=== PATIENT | female | born 1955 | race Caucasian/White ===

== ENCOUNTER 2017-09-25 15:29 | Inpatient (IN) | payer OTHER ==
[2017-09-25] MEDS ORDERED: ceFAZolin IN SWFI 2 GM/20 ML SYRINGE IVP ONE (16:01)
[2017-09-25] MEDS ORDERED: MORPHINE SULFATE 4 MG/ML SYRINGE IVP STA (16:01)
--- NOTE | 2017-09-25 16:12 | ED ---
General Adult HPI - General Source: patient, EMS, RN notes reviewed Mode of arrival: EMS Limitations: no limitations <Candy Clark - Last Filed: 09/25/17 18:15> <Obed Viramontes - Last Filed: 09/25/17 18:57> - General Chief complaint: Fall Stated complaint: Fall Time Seen by Provider: 09/25/17 15:41 - History of Present Illness Initial comments: 62 yo female presents to the emergency department with a chief complaint of a trip and fall. Patient tripped over her pajaias last night in the middle the night around 3:00 AM. She states she did not hit her head she did not pass out. It was a simple slip and fall. Patient states the right ankle hurts with no other injury. Patient denies any hip pain. Patient denies any history of hip injury in the past.Patient denies any recent fever, chills, shortness of breath, chest pain, back pain, abdominal pain, nausea vomiting, numbness or tingling, dysuria or hematuria, constipation or diarrhea, headaches or visual changes, or any other current symptoms. (Candy Clark) - Related Data Home Medications Medication Instructions Recorded Confirmed Atenolol/Chlorthalidone [Tenoretic 1 tab PO DAILY 09/25/17 09/25/17 100 Tablet] amLODIPine BESYLATE/BENAZEPRIL 1 cap PO DAILY 09/25/17 09/25/17 [Lotrel 10-20 mg Capsule] hydrOXYzine PAMOATE [Vistaril] 25 mg PO TID PRN 09/25/17 09/25/17 Allergies Allergy/AdvReac Type Severity Reaction Status Date / Time No Known Allergies Allergy Verified 09/25/17 16:20 Review of Systems ROS Other: All systems not noted in ROS Statement are negative. <Candy Clark - Last Filed: 09/25/17 18:15> ROS Other: All systems not noted in ROS Statement are negative. <Obed Viramontes - Last Filed: 09/25/17 18:57> ROS Statement: Those systems with pertinent positive or pertinent negative responses have been documented in the HPI. Past Medical History Past Medical History: Hypertension History of Any Multi-Drug Resistant Organisms: None Reported Past Surgical History: No Surgical Hx Reported Past Psychological History: Anxiety Smoking Status: Never smoker Past Alcohol Use History: Heavy Past Drug Use History: None Reported <Candy Clark - Last Filed: 09/25/17 18:15> General Exam Limitations: no limitations <Candy Clark - Last Filed: 09/25/17 18:15> <Obed Viramontes - Last Filed: 09/25/17 18:57> - General Exam Comments Initial Comments: General: The patient is awake and alert, in no distress, and does not appear acutely ill. Neck: The neck is supple, there is no tenderness. Cardiovascular: There is a regular rate and rhythm. No murmur, rub or gallop is appreciated. Respiratory: Lungs are clear to auscultation, respirations are non-labored, breath sounds are equal. No wheezes, stridor, rales, or rhonchi. Musculoskeletal: Sensation intact with 2+ pulses.reduction. Patient does appear of ecchymosis with a small abrasion to the right ankle. Limited range of motion due to pain. No proximal tib-fib tenderness. No right hip tenderness. Neurological: CN II-XII intact, There are no obvious motor or sensory deficits. Coordination appears grossly intact. Speech is normal. Skin: Skin is warm and dry and no rashes or lesions are noted. Psychiatric: Normal mood and affect. (Candy Clark) Course <Candy Clark - Last Filed: 09/25/17 18:15> <Obed Viramontes - Last Filed: 09/25/17 18:57> Vital Signs 09/25/17 09/25/17 09/25/17 15:46 16:08 16:50 Temperature 97.2 F L 97.8 F Pulse Rate 74 71 Respiratory 18 18 Rate Blood Pressure 112/51 108/56 O2 Sat by Pulse 99 99 Oximetry 09/25/17 09/25/17 09/25/17 16:55 17:00 17:10 Temperature Pulse Rate 71 69 52 L Respiratory 16 17 17 Rate Blood Pressure 110/57 108/56 79/48 O2 Sat by Pulse 100 97 96 Oximetry 09/25/17 09/25/17 09/25/17 17:16 17:20 17:26 Temperature Pulse Rate 86 66 75 Respiratory 17 17 17 Rate Blood Pressure 83/51 88/55 95/50 O2 Sat by Pulse 97 97 98 Oximetry 09/25/17 09/25/17 17:36 17:54 Temperature Pulse Rate 69 67 Respiratory 17 17 Rate Blood Pressure 91/50 91/59 O2 Sat by Pulse 98 Oximetry - Reevaluation(s) Reevaluation #1: 09/25/17 18:19 At time of admission we are still pending the patient's CAT scan results as well as urinalysis. (Candy Clark) Reevaluation #2: 09/25/17 18:57 I did discuss the case with Dr. Luz. The patient will be admitted with ICU consultation. Patient does remain awake alert hemodynamically stable at this time. (Obed Viramontes) Procedures - Orthopedic Joint Reduction Joint #1 Consent Obtained: verbal consent Time Out Performed: Yes Side: right Joint Reduction Location: ankle Analgesia: procedural sedation Technique Used: direct manipulation Post-Reduction Neuro Exam: intact Post-Reduction Vascular Exam: intact Post Reduction X-Ray Obtained: Yes Post Reduction X-Ray Results: reduced Splint Applied: Yes (Short leg stirrup medial and lateral aspects) Patient Tolerated Procedure: well - Procedural Sedation Procedural Sedation Start Time: 16:55 Procedural Sedation Stop Time: 17:18 Indications: fracture/dislocation reduction ASA Class: II Mallampati Airway Score: 3 IV Propofol Dose (mgs): 120 Complications: hypoventilation Interventions: oxygen applied, airway repositioned Patient Tolerated Procedure: well <Obed Viramontes - Last Filed: 09/25/17 18:57> Medical Decision Making - Lab Data Result diagrams: 09/25/17 16:30 09/25/17 16:30 <Candy Clark - Last Filed: 09/25/17 18:15> - Lab Data Result diagrams: 09/25/17 16:30 09/25/17 16:30 <Obed Viramontes - Last Filed: 09/25/17 18:57> - Medical Decision Making 62-year-old female presents with what appears be a right ankle injury. Patient did have a dislocation and fracture to the right ankle. There was concern for possible open fracture patient was given. Dr. Ruiz didn't come to evaluate the patient he states he does not open fracture and placed in a splint onto the patient is awake. Lab work revealed hyponatremia hypokalemia hypomagnesemia a as well as the patient and her abdomen which is not surprising due to the fact family confirms that she fell around 3:00 the morning and has been on the ground since they went to get her. At this time we will be admitting the patient we will start her on Ativan protocol for alcohol withdrawal. We will also start hydration for the patient's her abdomen place her magnesium and potassium. The patient is in agreement with this plan. This time she will be admitted. (Candy Clark) - Lab Data Lab Results 09/25/17 09/25/17 09/25/17 Range/Units 16:30 16:30 16:30 WBC 13.1 H (3.8-10.6) k/uL RBC 4.25 (3.80-5.40) m/uL Hgb 13.6 (11.4-16.0) gm/dL Hct 38.2 (34.0-46.0) % MCV 89.8 (80.0-100.0) fL MCH 32.0 (25.0-35.0) pg MCHC 35.7 (31.0-37.0) g/dL RDW 12.3 (11.5-15.5) % Plt Count 290 (150-450) k/uL Neutrophils % 94 % Lymphocytes % 2 % Monocytes % 3 % Eosinophils % 0 % Basophils % 0 % Neutrophils # 12.3 H (1.3-7.7) k/uL Lymphocytes # 0.3 L (1.0-4.8) k/uL Monocytes # 0.4 (0-1.0) k/uL Eosinophils # 0.1 (0-0.7) k/uL Basophils # 0.0 (0-0.2) k/uL Manual Slide Review Performed Hyperchromasia Slight Anisocytosis (manual) Present PT 10.6 (9.0-12.0) sec INR 1.1 (<1.2) APTT 27.1 (22.0-30.0) sec Sodium 107 L* (137-145) mmol/L Potassium 2.9 L* (3.5-5.1) mmol/L Chloride 66 L* (98-107) mmol/L Carbon Dioxide 21 L (22-30) mmol/L Anion Gap 20 mmol/L BUN 6 L (7-17) mg/dL Creatinine 0.70 (0.52-1.04) mg/dL Est GFR (MDRD) Af Amer >60 (>60 ml/min/1.73 sqM) Est GFR (MDRD) Non-Af >60 (>60 ml/min/1.73 sqM) Glucose 96 (74-99) mg/dL Calcium 8.6 (8.4-10.2) mg/dL Phosphorus 2.3 L (2.5-4.5) mg/dL Magnesium 1.2 L (1.6-2.3) mg/dL Total Bilirubin 1.3 (0.2-1.3) mg/dL AST 227 H (14-36) U/L ALT 82 H (9-52) U/L Alkaline Phosphatase 93 (38-126) U/L Creatine Kinase (30-135) U/L Total Protein 6.2 L (6.3-8.2) g/dL Albumin 3.6 (3.5-5.0) g/dL 09/25/17 Range/Units 16:30 WBC (3.8-10.6) k/uL RBC (3.80-5.40) m/uL Hgb (11.4-16.0) gm/dL Hct (34.0-46.0) % MCV (80.0-100.0) fL MCH (25.0-35.0) pg MCHC (31.0-37.0) g/dL RDW (11.5-15.5) % Plt Count (150-450) k/uL Neutrophils % % Lymphocytes % % Monocytes % % Eosinophils % % Basophils % % Neutrophils # (1.3-7.7) k/uL Lymphocytes # (1.0-4.8) k/uL Monocytes # (0-1.0) k/uL Eosinophils # (0-0.7) k/uL Basophils # (0-0.2) k/uL Manual Slide Review Hyperchromasia Anisocytosis (manual) PT (9.0-12.0) sec INR (<1.2) APTT (22.0-30.0) sec Sodium (137-145) mmol/L Potassium (3.5-5.1) mmol/L Chloride (98-107) mmol/L Carbon Dioxide (22-30) mmol/L Anion Gap mmol/L BUN (7-17) mg/dL Creatinine (0.52-1.04) mg/dL Est GFR (MDRD) Af Amer (>60 ml/min/1.73 sqM) Est GFR (MDRD) Non-Af (>60 ml/min/1.73 sqM) Glucose (74-99) mg/dL Calcium (8.4-10.2) mg/dL Phosphorus (2.5-4.5) mg/dL Magnesium (1.6-2.3) mg/dL Total Bilirubin (0.2-1.3) mg/dL AST (14-36) U/L ALT (9-52) U/L Alkaline Phosphatase (38-126) U/L Creatine Kinase 5772 H (30-135) U/L Total Protein (6.3-8.2) g/dL Albumin (3.5-5.0) g/dL Disposition Decision Date: 09/25/17 Decision Time: 18:18 <Candy Clark - Last Filed: 09/25/17 18:15> <Obed Viramontes - Last Filed: 09/25/17 18:57> Clinical Impression: Fall, Hypokalemia, Hypomagnesemia, Hyponatremia, Alcoholism, Rhabdomyolysis, Closed right ankle fracture Disposition: ADMITTED IP TO THIS [facility] Condition: Fair
--- NOTE | 2017-09-25 16:20 | XR ---
EXAMINATION TYPE: XR ankle complete RT DATE OF EXAM: 09/25/2017 COMPARISON: NONE HISTORY: Pain TECHNIQUE: Frontal, lateral and oblique images of the right ankle are obtained. COMPARISON: None. FINDINGS: Complete dislocation tibiotalar joint. Tibia is dislocated medially. Completely displaced d istal fibular fracture with mild comminution. Fracture components adjacent to the distal tibia. Suspe ct that additional posterior malleolar fracture. Extensive soft tissue swelling and deformity. IMPRESSION: Fracture / dislocation right ankle.
[2017-09-25] MEDS ORDERED: PROPOFOL 10 MG/ML 20 ML VIAL IV STA (16:26)
[2017-09-25 16:51] LABS: ALT 82 U/L (9-52); AST 227 U/L (14-36); Albumin 3.6 g/dL (3.5-5.0); Alkaline Phosphatase 93 U/L (38-126); Anion Gap 20 mmol/L; Blood Urea Nitrogen 6 mg/dL (7-17); Calcium 8.6 mg/dL (8.4-10.2); Carbon Dioxide 21 mmol/L (22-30); Glucose 96 mg/dL (74-99); Magnesium 1.2 mg/dL (1.6-2.3); Phosphorus 2.3 mg/dL (2.5-4.5); Total Bilirubin 1.3 mg/dL (0.2-1.3); Total Protein 6.2 g/dL (6.3-8.2)
[2017-09-25 16:57] LABS: Basophils % (A) 0 %; Eosinophils # (A) 0.1 k/uL (0-0.7); Eosinophils % (A) 0 %; HCT 38.2 % (34.0-46.0); HGB 13.6 gm/dL (11.4-16.0); Hyperchromasia Slight; Lymphocytes # (A) 0.3 k/uL (1.0-4.8); Lymphocytes % (A) 2 %; MCHC 35.7 g/dL (31.0-37.0); MCV 89.8 fL (80.0-100.0); Mean Platelet Volume 7.3; Monocytes # (A) 0.4 k/uL (0-1.0); Monocytes % (A) 3 %; Neutrophils # (A) 12.3 k/uL (1.3-7.7); Neutrophils % (A) 94 %; Platelet Count 290 k/uL (150-450); RBC 4.25 m/uL (3.80-5.40); RDW 12.3 % (11.5-15.5); WBC 13.1 k/uL (3.8-10.6)
[2017-09-25 17:04] LABS: Sodium 107 mmol/L (137-145)
[2017-09-25 17:05] LABS: Chloride 66 mmol/L (98-107); Potassium 2.9 mmol/L (3.5-5.1)
[2017-09-25 17:09] LABS: INR 1.1 (<1.2); Partial Thromboplastin Time 27.1 sec (22.0-30.0); Prothrombin Time 10.6 sec (9.0-12.0)
[2017-09-25] MEDS ORDERED: SODIUM CHLORIDE 0.9% 1,000 ML IV STA ×2 (17:14→17:17)
[2017-09-25 17:16] LABS: Anisocytosis (M) Present
[2017-09-25] MEDS ORDERED: POTASSIUM CHLORIDE 20 MEQ in WATER FOR INJECTION 1 100ML.BAG IVPB STA (17:17)
--- NOTE | 2017-09-25 17:22 | XR ---
EXAMINATION TYPE: XR ankle limited RT DATE OF EXAM: 09/25/2017 COMPARISON: Today HISTORY: Postreduction TECHNIQUE: 2 views FINDINGS: There is comminuted oblique fracture of the distal shaft of the fibula. There is a large pl cristofer calcaneal spur. There is 50% offset. There is some widening of the ankle mortise. There is sign ificant reduction of the fracture dislocation compared to first exam. IMPRESSION: There is satisfactory reduction of the fracture dislocation of the ankle joint compared t o the first exam.
[2017-09-25] MEDS: MAGNESIUM SULFATE-D5W PMX 1 GM in DEXTROSE/WATER 1 100ML.BAG IVPB SCH ×2 (17:59→22:22)
[2017-09-25] MEDS ORDERED: NALOXONE 0.4 MG/ML 1 ML VIAL IV PRN (18:19)
[2017-09-25] MEDS ORDERED: THIAMINE 100 MG/ML 2 ML VIAL IM STA (18:21)
[2017-09-25] MEDS ORDERED: hydrOXYzine PAMOATE 25 MG CAP PO PRN (18:21)
[2017-09-25] MEDS ORDERED: LORazepam 2 MG/ML INJ IV PRN ×3 (18:21)
--- NOTE | 2017-09-25 19:13 | CT ---
EXAMINATION TYPE: CT brain [place] DATE OF EXAM: 09/25/2017 COMPARISON: NONE HISTORY: Fall today. No head injury. CT DLP: 2470 mGycm Automated exposure control for dose reduction was used. TECHNIQUE: CT scan of the head and cervical spine are performed without contrast. FINDINGS: There is mild cerebral cortical atrophy. There is no mass effect nor midline shift. There is no sign of intracranial hemorrhage. The calvarium appears intact. There is some mild straightening of the cervical spine. There is degenerative disc space narrowing at C5-6 C6-7 with spurring of the endplates. Posterior elements are intact. There is no sign of a fract ure. Skull base appears intact. IMPRESSION: Cerebral atrophy. No acute intracranial abnormality. Spondylotic changes in the lower cervical spine. No fracture seen.
[2017-09-25 19:36] LABS: Appearance,Urine Cloudy (Clear); Bacteria,Urine Occasional /hpf; Bilirubin,Urine Negative (Negative); Blood,Urine Moderate (Negative); Color,Urine Yellow; Glucose,Urine (UA) Negative (Negative); Hyaline Casts,Urine 1 /lpf (0-2); Ketones,Urine 2+ (Negative); Leukocyte Esterase,Urine Large (Negative); Mucus,Urine Rare /hpf; Nitrite,Urine Positive (Negative); Protein,Urine 1+ (Negative); RBC,Urine 9 /hpf (0-5); Specific Gravity,Urine 1.007 (1.001-1.035); Squamous Epithelial Cell,Urine 1 /hpf (0-4); Urobilinogen,Urine <2.0 mg/dL (<2.0); WBC,Urine 70 /hpf (0-5)
[2017-09-25 19:41] LABS: Amphetamine Screen,Urine Not Detected (NotDetected); Barbiturate Screen,Urine Not Detected (NotDetected); Benzodiazepines Screen,Urine Not Detected (NotDetected); Cocaine Screen,Urine Not Detected (NotDetected); Methadone Screen, Urine Not Detected (NotDetected); Opiate Screen,Urine Detected (NotDetected); Oxycodone Screen, Urine Not Detected (NotDetected); Phencyclidine Screen,Urine Not Detected (NotDetected); Tricyclic Antidepressant,Urine Not Detected (NotDetected); Urn Cannabinoid Scrn Not Detected (NotDetected)
[2017-09-25] MEDS: SODIUM CHLORIDE 0.9% 1,000 ML IV SCH (21:00)
[2017-09-26 00:39] LABS: Anion Gap 15 mmol/L; Calcium 8.5 mg/dL (8.4-10.2); Carbon Dioxide 20 mmol/L (22-30); Glucose 105 mg/dL (74-99)
[2017-09-26 00:40] LABS: Sodium 109 mmol/L (137-145)
[2017-09-26 00:41] LABS: Albumin 3.1 g/dL (3.5-5.0); Blood Urea Nitrogen 6 mg/dL (7-17); Chloride 74 mmol/L (98-107); Potassium 4.8 mmol/L (3.5-5.1); Total Protein 5.9 g/dL (6.3-8.2)
[2017-09-26 00:42] LABS: ALT 67 U/L (9-52); AST 184 U/L (14-36); Alkaline Phosphatase 71 U/L (38-126); Magnesium 1.8 mg/dL (1.6-2.3); Total Bilirubin 1.4 mg/dL (0.2-1.3)
[2017-09-26 01:33] LABS: Glucose,Whole Blood 107 mg/dL (75-99)
[2017-09-26] MEDS: ceFAZolin IN SWFI 2 GM/20 ML SYRINGE IVP SCH ×2 (03:37→08:38)
[2017-09-26] MEDS: SODIUM CHLORIDE 0.9% 1,000 ML IV SCH ×6 (03:37→22:53)
[2017-09-26 04:52] LABS: Anion Gap 17 mmol/L; Calcium 8.6 mg/dL (8.4-10.2); Carbon Dioxide 21 mmol/L (22-30); Glucose 88 mg/dL (74-99); Total Bilirubin 1.1 mg/dL (0.2-1.3)
[2017-09-26 04:55] LABS: Chloride 75 mmol/L (98-107); Sodium 113 mmol/L (137-145)
[2017-09-26 04:56] LABS: HCT 36.1 % (34.0-46.0); HGB 12.2 gm/dL (11.4-16.0); MCH 31.4 pg (25.0-35.0); MCHC 33.9 g/dL (31.0-37.0); MCV 92.7 fL (80.0-100.0); Mean Platelet Volume 7.6; Platelet Count 258 k/uL (150-450); RBC 3.89 m/uL (3.80-5.40); RDW 12.2 % (11.5-15.5); WBC 10.7 k/uL (3.8-10.6)
[2017-09-26 04:58] LABS: Albumin 2.9 g/dL (3.5-5.0); Blood Urea Nitrogen 5 mg/dL (7-17); Magnesium 1.7 mg/dL (1.6-2.3); Potassium 4.4 mmol/L (3.5-5.1); Total Protein 5.6 g/dL (6.3-8.2)
[2017-09-26 04:59] LABS: ALT 65 U/L (9-52); AST 163 U/L (14-36); Alkaline Phosphatase 68 U/L (38-126)
[2017-09-26 05:30] LABS: Band Neutrophils % 3 %; Lymphocytes # (M) 0.54 k/uL (1.0-4.8); Monocytes # (M) 0.21 k/uL (0-1.0); Neutrophils % (M) 90 %; Nucleated Red Blood Cells 0 /100 WBC (0-0); Total Cells Counted 100
[2017-09-26] MEDS: MAGNESIUM SULFATE-D5W PMX 1 GM in DEXTROSE/WATER 1 100ML.BAG IVPB SCH ×6 (08:30→23:59)
[2017-09-26] MEDS ORDERED: amLODIPine 10 MG TAB PO SCH (09:00)
[2017-09-26] MEDS ORDERED: CHLORTHALIDONE 25 MG TAB PO SCH (09:00)
[2017-09-26] MEDS ORDERED: LISINOPRIL 20 MG TAB PO SCH (09:00)
[2017-09-26] MEDS ORDERED: PANTOPRAZOLE 40 MG TABLET PO SCH (09:00)
[2017-09-26] MEDS ORDERED: ATENOLOL 50 MG TAB PO SCH (09:00)
[2017-09-26] MEDS: ENOXAPARIN 40 MG/0.4 ML SYRINGE SQ SCH (10:01)
--- NOTE | 2017-09-26 10:13 | P.CNPUL ---
History of Present Illness Consult date: 09/26/17 Reason for consult: other Chief complaint: Status post fall with broken ankle in rhabdomyolysis History of present illness: Consult dated September 26 2017 62-year-old female who presented to the emergency department with complaints of tripping and falling. She apparently fell over a predominance the night before. The patient apparently was on the floor for maybe 10-12 hours. She ended up fracturing her right ankle. Heavy drinker. Drinks about 5- 8 beers a day. The patient denies any complaints at the current time. She was mildly hypotensive in the emergency department. For that reason and for all the medical issues that she had an evaluation including profound hyponatremia with sodium of 107, the patient was admitted to the ICU for further monitoring and management. The patient sees Dr. Mcdonald as a primary doctor. She is doing better today. Her kidney functions remained normal. We are monitoring her creatine kinase levels. Currently, the patient's on nasal O2 at 2 L/m and a saline IV at 150 an hour. Her sodium will be rechecked. Her last sodium was 113 at about 4 AM. Review of Systems A 12 point review of system is performed. Constitutional weakness neurologic negative HEENT negative cardiovascular negative pulmonary negative GI negative negative neurologic pain in the right ankle area. Immunologic negative dermatologic negative Past Medical History Past Medical History: Hypertension History of Any Multi-Drug Resistant Organisms: None Reported Past Surgical History: No Surgical Hx Reported Past Psychological History: Anxiety Smoking Status: Never smoker Past Alcohol Use History: Heavy Past Drug Use History: None Reported - Past Family History Father Family Medical History: Hypertension Additional Family Medical History / Comment(s): gout, etoh, Medications and Allergies Home Medications Medication Instructions Recorded Confirmed Type Atenolol/Chlorthalidone [Tenoretic 1 tab PO DAILY 09/25/17 09/25/17 History 100 Tablet] amLODIPine BESYLATE/BENAZEPRIL 1 cap PO DAILY 09/25/17 09/25/17 History [Lotrel 10-20 mg Capsule] hydrOXYzine PAMOATE [Vistaril] 25 mg PO TID PRN 09/25/17 09/25/17 History Allergies Allergy/AdvReac Type Severity Reaction Status Date / Time No Known Allergies Allergy Verified 09/25/17 16:20 Physical Exam Osteopathic Statement: *. No significant issues noted on an osteopathic structural exam other than those noted in the History and Physical/Consult. Vitals: Vital Signs Temp Pulse Pulse Resp BP BP Pulse Ox 09/26/17 09:30 75 42 H 83/36 97 09/26/17 09:00 69 25 H 98/53 98 09/26/17 08:30 70 31 H 99/67 97 09/26/17 08:00 98.0 F 78 27 H 95/58 98 09/26/17 07:30 71 22 91/51 98 09/26/17 07:00 70 16 97/55 97 09/26/17 06:50 66 20 97/55 97 09/26/17 06:40 76 20 97/55 98 09/26/17 06:30 63 20 96/51 97 09/26/17 06:20 64 16 96/51 97 09/26/17 06:10 64 24 96/51 98 09/26/17 06:00 69 33 H 96/50 97 09/26/17 05:50 63 16 96/50 96 09/26/17 05:40 65 23 96/50 98 09/26/17 05:30 71 16 92/51 98 09/26/17 05:20 81 20 92/51 96 09/26/17 05:10 70 21 92/51 99 09/26/17 05:00 69 24 95/50 95 09/26/17 04:50 68 24 95/50 98 09/26/17 04:40 71 16 95/50 97 09/26/17 04:30 62 30 H 95/57 99 09/26/17 04:20 63 15 95/57 98 09/26/17 04:10 69 16 95/57 98 09/26/17 04:00 98.2 F 67 15 97/60 97 09/26/17 03:50 69 19 97/60 98 18 03:40 71 20 97/60 98 09/26/17 03:30 69 25 H 108/51 98 18 03:20 61 16 108/51 96 18 03:10 61 16 108/51 98 18 03:00 62 20 108/51 99 18 02:50 62 25 H 108/51 98 09/26/17 02:40 62 17 108/51 97 09/26/17 02:30 72 23 108/51 98 09/26/17 02:20 68 61 H 108/51 99 09/26/17 02:10 64 22 108/51 99 09/26/17 02:00 98.7 F 65 24 108/51 100 09/26/17 01:50 74 16 108/51 97 09/26/17 01:40 66 20 108/51 99 09/26/17 01:36 97.3 F L 64 18 99/58 100 09/26/17 01:30 72 97 09/26/17 01:29 98 09/26/17 00:00 97.3 F L 67 14 99/54 98 09/25/17 22:00 66 16 104/57 99 09/25/17 21:04 16 98 09/25/17 21:00 68 16 107/58 98 09/25/17 20:58 68 20 102/57 99 09/25/17 20:32 66 18 102/57 99 09/25/17 20:21 69 18 98/55 99 09/25/17 19:17 71 18 93/52 99 09/25/17 17:54 67 17 91/59 98 09/25/17 17:36 69 17 91/50 09/25/17 17:26 75 17 95/50 98 09/25/17 17:20 66 17 88/55 97 09/25/17 17:16 86 17 83/51 97 09/25/17 17:10 52 L 17 79/48 96 09/25/17 17:00 69 17 108/56 97 09/25/17 16:55 71 16 110/57 100 09/25/17 16:50 71 18 108/56 99 09/25/17 16:08 97.8 F 09/25/17 15:46 97.2 F L 74 18 112/51 99 Intake and Output 09/25/17 09/26/17 09/26/17 22:59 06:59 14:59 Intake Total 1450 500 Output Total 2800 450 Balance -1350 50 Intake: Intake, IV Titration 1450 500 Amount Magnesium Sulfate-D5w Pmx 100 200 1 gm In Dextrose/Water 1 100ml.bag @ 100 mls/hr IVPB Q1H ROBERT Rx#: [id number] Sodium Chloride 0.9% 1, 1350 300 000 ml @ 150 mls/hr IV . Q6H40M ROBERT Rx#:[id number] Output: Urine 2800 450 Uretheral ([place]) 1000 Other: Voiding Method Indwelling Catheter Indwelling Catheter Weight 113.398 kg 114.2 kg No acute distress, oriented 3. Nasal O2 in place HEENT examination is grossly unremarkable. Mucous membranes are moist. No oral lesions. Neck supple. Full range of motion. No adenopathy thyromegaly or neck vein distention. Cardiovascular examination reveals regular rhythm rate. S1-S2 normal. No S3 or S4. No discernible murmur noted. Lungs reveal clear breath sounds. Her sounds are equal bilaterally. No adventitious lung sounds including wheezes rhonchi or crackles. Abdomen soft bowel sounds are heard. No masses or tenderness. Extremities are intact. No cyanosis clubbing or edema. The patient has right ankle pain and swelling Skin is without rash or lesion. Neurologic examination is brief but nonfocal. Results - Laboratory Findings CBC and BMP: 09/26/17 03:58 09/26/17 03:58 PT/INR, D-dimer PT 10.6 sec (9.0-12.0) 09/25/17 16:30 INR 1.1 (<1.2) 09/25/17 16:30 Abnormal lab findings: Abnormal Labs 09/25/17 09/25/17 09/25/17 16:30 16:30 16:30 WBC 13.1 H Neutrophils # 12.3 H Neutrophils # (Manual) Lymphocytes # 0.3 L Lymphocytes # (Manual) Sodium 107 L* Potassium 2.9 L* Chloride 66 L* Carbon Dioxide 21 L BUN 6 L Creatinine Glucose POC Glucose (mg/dL) Phosphorus 2.3 L Magnesium 1.2 L Total Bilirubin AST 227 H ALT 82 H Creatine Kinase 5772 H Total Protein 6.2 L Albumin Urine Appearance Urine Protein Urine Ketones Urine Blood Urine Nitrite Ur Leukocyte Esterase Urine RBC Urine WBC Urine Bacteria Urine Mucus Urine Opiates Screen 09/25/17 09/26/17 09/26/17 19:20 00:00 01:31 WBC Neutrophils # Neutrophils # (Manual) Lymphocytes # Lymphocytes # (Manual) Sodium 109 L* Potassium Chloride 74 L* Carbon Dioxide 20 L BUN 6 L Creatinine 0.50 L Glucose 105 H POC Glucose (mg/dL) 107 H Phosphorus Magnesium Total Bilirubin 1.4 H AST 184 H ALT 67 H Creatine Kinase Total Protein 5.9 L Albumin 3.1 L Urine Appearance Cloudy H Urine Protein 1+ H Urine Ketones 2+ H Urine Blood Moderate H Urine Nitrite Positive H Ur Leukocyte Esterase Large H Urine RBC 9 H Urine WBC 70 H Urine Bacteria Occasional H Urine Mucus Rare H Urine Opiates Screen Detected H 09/26/17 09/26/17 03:58 03:58 WBC 10.7 H Neutrophils # Neutrophils # (Manual) 9.90 H Lymphocytes # Lymphocytes # (Manual) 0.54 L Sodium 113 L* Potassium Chloride 75 L* Carbon Dioxide 21 L BUN 5 L Creatinine Glucose POC Glucose (mg/dL) Phosphorus Magnesium Total Bilirubin AST 163 H ALT 65 H Creatine Kinase Total Protein 5.6 L Albumin 2.9 L Urine Appearance Urine Protein Urine Ketones Urine Blood Urine Nitrite Ur Leukocyte Esterase Urine RBC Urine WBC Urine Bacteria Urine Mucus Urine Opiates Screen - Diagnostic Findings Chest x-ray: image reviewed (Labs x-rays a medications are reviewed.) Assessment and Plan Assessment: Assessment Profound hyponatremia likely secondary to chronic beer ingestion Status post fall with right ankle fracture Rule out rhabdomyolysis History of hypertension Chronic alcohol abuse Plan: Plan for September 26 2017 The patient's sodium will continue to be monitored. We'll check a sodium in the near future. Patient will continue on saline IV at 150 an hour. Additional recommendations and suggestions are forthcoming. We'll continue to monitor kidney function. We'll continue to monitor the CK level. Additional recommendations and suggestions are forthcoming. We'll also continue to monitor patient for signs and symptoms of alcohol withdrawal syndrome Time with Patient: Greater than 30
--- NOTE | 2017-09-26 11:20 | P.HPIM ---
History of Present Illness H&P Date: 09/26/17 This is a 62-year-old female with past medical history significant for heavy alcohol abuse who presented to the hospital after she had a mechanical fall and was found on the ground for approximately 10-12 hours. Patient was evaluated in the emergency room and was complaining of right ankle pain. She was right ankle dislocation status post reduction in the emergency room. Patient was also found to have significant electrolyte derangement and profound hyponatremia. Her mentation was acceptable as patient remained awake and alert and oriented despite profound hyponatremia. There was no seizure documented. Patient is being hydrated with IV fluids. She was also started on antibiotic to cover her for underlying UTI. Review of Systems Review of system: 14 points review of systems were obtained and were negative except to what were mentioned in the HPI. Past Medical History Past Medical History: Hypertension History of Any Multi-Drug Resistant Organisms: None Reported Past Surgical History: No Surgical Hx Reported Past Psychological History: Anxiety Smoking Status: Never smoker Past Alcohol Use History: Heavy Past Drug Use History: None Reported - Past Family History Father Family Medical History: Hypertension Additional Family Medical History / Comment(s): gout, etoh, Medications and Allergies Home Medications Medication Instructions Recorded Confirmed Type Atenolol/Chlorthalidone [Tenoretic 1 tab PO DAILY 09/25/17 09/25/17 History 100 Tablet] amLODIPine BESYLATE/BENAZEPRIL 1 cap PO DAILY 09/25/17 09/25/17 History [Lotrel 10-20 mg Capsule] hydrOXYzine PAMOATE [Vistaril] 25 mg PO TID PRN 09/25/17 09/25/17 History Allergies Allergy/AdvReac Type Severity Reaction Status Date / Time No Known Allergies Allergy Verified 09/25/17 16:20 Physical Exam Vitals: Vital Signs Temp Pulse Pulse Resp BP BP Pulse Ox 09/26/17 11:00 64 15 93/52 97 09/26/17 10:30 64 27 H 103/51 96 09/26/17 10:00 72 96 H 97/52 95 09/26/17 09:30 75 42 H 83/36 97 09/26/17 09:00 69 25 H 98/53 98 09/26/17 08:30 70 31 H 99/67 97 09/26/17 08:00 98.0 F 78 27 H 95/58 98 02/14/18 07:30 71 22 91/51 98 02/14/18 07:00 70 16 97/55 97 02/14/18 06:50 66 20 97/55 97 02/14/18 06:40 76 20 97/55 98 02/14/18 06:30 63 20 96/51 97 02/14/18 06:20 64 16 96/51 97 02/14/18 06:10 64 24 96/51 98 02/14/18 06:00 69 33 H 96/50 97 02/14/18 05:50 63 16 96/50 96 02/14/18 05:40 65 23 96/50 98 02/14/18 05:30 71 16 92/51 98 02/14/18 05:20 81 20 92/51 96 02/14/18 05:10 70 21 92/51 99 02/14/18 05:00 69 24 95/50 95 02/14/18 04:50 68 24 95/50 98 02/14/18 04:40 71 16 95/50 97 02/14/18 04:30 62 30 H 95/57 99 02/14/18 04:20 63 15 95/57 98 02/14/18 04:10 69 16 95/57 98 02/14/18 04:00 98.2 F 67 15 97/60 97 02/14/18 03:50 69 19 97/60 98 02/14/18 03:40 71 20 97/60 98 02/14/18 03:30 69 25 H 108/51 98 02/14/18 03:20 61 16 108/51 96 02/14/18 03:10 61 16 108/51 98 02/14/18 03:00 62 20 108/51 99 02/14/18 02:50 62 25 H 108/51 98 02/14/18 02:40 62 17 108/51 97 02/14/18 02:30 72 23 108/51 98 02/14/18 02:20 68 61 H 108/51 99 02/14/18 02:10 64 22 108/51 99 02/14/18 02:00 98.7 F 65 24 108/51 100 02/14/18 01:50 74 16 108/51 97 02/14/18 01:40 66 20 108/51 99 02/14/18 01:36 97.3 F L 64 18 99/58 100 02/14/18 01:30 72 97 09/26/17 01:29 98 09/26/17 00:00 97.3 F L 67 14 99/54 98 09/25/17 22:00 66 16 104/57 99 09/25/17 21:04 16 98 09/25/17 21:00 68 16 107/58 98 09/25/17 20:58 68 20 102/57 99 09/25/17 20:32 66 18 102/57 99 09/25/17 20:21 69 18 98/55 99 09/25/17 19:17 71 18 93/52 99 09/25/17 17:54 67 17 91/59 98 09/25/17 17:36 69 17 91/50 09/25/17 17:26 75 17 95/50 98 09/25/17 17:20 66 17 88/55 97 09/25/17 17:16 86 17 83/51 97 09/25/17 17:10 52 L 17 79/48 96 09/25/17 17:00 69 17 108/56 97 09/25/17 16:55 71 16 110/57 100 09/25/17 16:50 71 18 108/56 99 09/25/17 16:08 97.8 F 09/25/17 15:46 97.2 F L 74 18 112/51 99 Intake and Output 09/25/17 09/26/17 09/26/17 22:59 06:59 14:59 Intake Total 1450 800 Output Total 2800 800 Balance -1350 0 Intake: Intake, IV Titration 1450 800 Amount Magnesium Sulfate-D5w Pmx 100 200 1 gm In Dextrose/Water 1 100ml.bag @ 100 mls/hr IVPB Q1H [facility] Rx#: [id number] Sodium Chloride 0.9% 1, 1350 600 000 ml @ 150 mls/hr IV . Q6H40M [facility] Rx#:[id number] Output: Urine 2800 800 Uretheral (Silverman) 1000 Other: Voiding Method Indwelling Catheter Indwelling Catheter Weight 113.398 kg 114.2 kg General: The patient is awake and alert, in no distress Eye: there is normal conjunctiva bilaterally. Neck: The neck is supple, there is no JVD. Cardiovascular: Normal S1-S2, no S3-S4, no murmurs. Respiratory: Lungs clear to auscultation bilaterally Gastrointestinal: Abdomen is soft, nontender Musculoskeletal: Right ankle/foot inspected. Neurological:. Speech is normal. Skin: Skin is warm and dry Results CBC & Chem 7: 09/26/17 03:58 09/26/17 03:58 Labs: Abnormal Lab Results - Last 24 Hours (Table) 09/25/17 09/25/17 09/25/17 Range/Units 16:30 16:30 16:30 WBC 13.1 H (3.8-10.6) k/uL Neutrophils # 12.3 H (1.3-7.7) k/uL Neutrophils # (Manual) (1.3-7.7) k/uL Lymphocytes # 0.3 L (1.0-4.8) k/uL Lymphocytes # (Manual) (1.0-4.8) k/uL Sodium 107 L* (137-145) mmol/L Potassium 2.9 L* (3.5-5.1) mmol/L Chloride 66 L* (98-107) mmol/L Carbon Dioxide 21 L (22-30) mmol/L BUN 6 L (7-17) mg/dL Creatinine (0.52-1.04) mg/dL Glucose (74-99) mg/dL POC Glucose (mg/dL) (75-99) mg/dL Phosphorus 2.3 L (2.5-4.5) mg/dL Magnesium 1.2 L (1.6-2.3) mg/dL Total Bilirubin (0.2-1.3) mg/dL AST 227 H (14-36) U/L ALT 82 H (9-52) U/L Creatine Kinase 5772 H (30-135) U/L Total Protein 6.2 L (6.3-8.2) g/dL Albumin (3.5-5.0) g/dL Urine Appearance (Clear) Urine Protein (Negative) Urine Ketones (Negative) Urine Blood (Negative) Urine Nitrite (Negative) Ur Leukocyte Esterase (Negative) Urine RBC (0-5) /hpf Urine WBC (0-5) /hpf Urine Bacteria (None) /hpf Urine Mucus (None) /hpf Urine Opiates Screen (NotDetected) 09/25/17 09/26/17 09/26/17 Range/Units 19:20 00:00 01:31 WBC (3.8-10.6) k/uL Neutrophils # (1.3-7.7) k/uL Neutrophils # (Manual) (1.3-7.7) k/uL Lymphocytes # (1.0-4.8) k/uL Lymphocytes # (Manual) (1.0-4.8) k/uL Sodium 109 L* (137-145) mmol/L Potassium (3.5-5.1) mmol/L Chloride 74 L* (98-107) mmol/L Carbon Dioxide 20 L (22-30) mmol/L BUN 6 L (7-17) mg/dL Creatinine 0.50 L (0.52-1.04) mg/dL Glucose 105 H (74-99) mg/dL POC Glucose (mg/dL) 107 H (75-99) mg/dL Phosphorus (2.5-4.5) mg/dL Magnesium (1.6-2.3) mg/dL Total Bilirubin 1.4 H (0.2-1.3) mg/dL AST 184 H (14-36) U/L ALT 67 H (9-52) U/L Creatine Kinase (30-135) U/L Total Protein 5.9 L (6.3-8.2) g/dL Albumin 3.1 L (3.5-5.0) g/dL Urine Appearance Cloudy H (Clear) Urine Protein 1+ H (Negative) Urine Ketones 2+ H (Negative) Urine Blood Moderate H (Negative) Urine Nitrite Positive H (Negative) Ur Leukocyte Esterase Large H (Negative) Urine RBC 9 H (0-5) /hpf Urine WBC 70 H (0-5) /hpf Urine Bacteria Occasional H (None) /hpf Urine Mucus Rare H (None) /hpf Urine Opiates Screen Detected H (NotDetected) 09/26/17 09/26/17 Range/Units 03:58 03:58 WBC 10.7 H (3.8-10.6) k/uL Neutrophils # (1.3-7.7) k/uL Neutrophils # (Manual) 9.90 H (1.3-7.7) k/uL Lymphocytes # (1.0-4.8) k/uL Lymphocytes # (Manual) 0.54 L (1.0-4.8) k/uL Sodium 113 L* (137-145) mmol/L Potassium (3.5-5.1) mmol/L Chloride 75 L* (98-107) mmol/L Carbon Dioxide 21 L (22-30) mmol/L BUN 5 L (7-17) mg/dL Creatinine (0.52-1.04) mg/dL Glucose (74-99) mg/dL POC Glucose (mg/dL) (75-99) mg/dL Phosphorus (2.5-4.5) mg/dL Magnesium (1.6-2.3) mg/dL Total Bilirubin (0.2-1.3) mg/dL AST 163 H (14-36) U/L ALT 65 H (9-52) U/L Creatine Kinase (30-135) U/L Total Protein 5.6 L (6.3-8.2) g/dL Albumin 2.9 L (3.5-5.0) g/dL Urine Appearance (Clear) Urine Protein (Negative) Urine Ketones (Negative) Urine Blood (Negative) Urine Nitrite (Negative) Ur Leukocyte Esterase (Negative) Urine RBC (0-5) /hpf Urine WBC (0-5) /hpf Urine Bacteria (None) /hpf Urine Mucus (None) /hpf Urine Opiates Screen (NotDetected) Microbiology - Last 24 Hours (Table) 09/25/17 19:20 Urine Culture - Preliminary Urine,Voided Thrombosis Risk Factor Assmnt - Choose All That Apply Any of the Below Risk Factors Present?: Yes Each Factor Represents 1 point: Obesity (BMI >25) Each Risk Factor Represents 2 Points: Age 61-74 years Thrombosis Risk Factor Assessment Total Risk Factor Score: 3 Thrombosis Risk Factor Assessment Level: Moderate Risk Assessment and Plan Assessment: 1. Profound hyponatremia, hypovolemic hyponatremia also worsened by a beer drinking. Patient is currently hydrated with IV fluids. I would consult nephrology for further evaluation. 2. Heavy alcohol abuse: Counseled extensively. We will continue CIWA protocol 3. Rhabdomyolysis: Currently on IV fluids. 4. Mechanical fall: We will consult PT/OT 5. Right ankle dislocation status post reduction in the emergency room. I will consult orthopedic for further evaluation 6. Urinary tract infection, started on IV ceftriaxone awaiting urine culture 7. Hypotension: Secondary to intravascular depletion. Less likely sepsis. We will continue IV fluid hydration. Hold home blood pressure medication 8. GI and DVT prophylaxis ordered
[2017-09-26 11:51] LABS: Anion Gap 14 mmol/L; Blood Urea Nitrogen 3 mg/dL (7-17); Calcium 7.5 mg/dL (8.4-10.2); Carbon Dioxide 23 mmol/L (22-30); Glucose 103 mg/dL (74-99); Magnesium 1.9 mg/dL (1.6-2.3)
[2017-09-26 11:55] LABS: Sodium 113 mmol/L (137-145)
[2017-09-26 11:56] LABS: Chloride 76 mmol/L (98-107)
[2017-09-26 11:57] LABS: Potassium 2.4 mmol/L (3.5-5.1)
[2017-09-26] MEDS: PANTOPRAZOLE 40 MG/10 ML VIAL IVP SCH (12:03)
[2017-09-26] MEDS ORDERED: Magnesium Replacement Protocol 1 EACH MISC MISCELLANE PRN (12:05)
[2017-09-26] MEDS: cefTRIAXone IN SWFI 1,000 MG/10 ML SYRINGE IVP SCH (12:06)
[2017-09-26] MEDS: POTASSIUM CHLORIDE ER 20 MEQ TAB.ER PO SCH ×3 (12:20→17:18)
[2017-09-26] MEDS: POTASSIUM CHLORIDE 20 MEQ in WATER FOR INJECTION 1 100ML.BAG IVPB SCH ×5 (12:20→22:53)
--- NOTE | 2017-09-26 13:08 | P.CNOR ---
History of Present Illness - [facility] Consult date: 09/25/17 History of present illness: The patient is a morbidly obese 62-year-old female with a medical history significant for chronic alcohol abuse who presented to the ER after sustaining a fall and right ankle injury. She does not reamer the details of the fall and was down for an undetermined amount of time. She is brought to the ER where she was found to have an ankle fracture dislocation and superficial necrosis over the skin of the medial ankle. Orthopedics was consulted for management. In the ER she is complaining of isolated pain in her ankle. Past Medical History Past Medical History: Hypertension History of Any Multi-Drug Resistant Organisms: None Reported Past Surgical History: No Surgical Hx Reported Past Psychological History: Anxiety Smoking Status: Never smoker Past Alcohol Use History: Heavy Past Drug Use History: None Reported - Past Family History Father Family Medical History: Hypertension Additional Family Medical History / Comment(s): gout, etoh, Medications and Allergies Home Medications Medication Instructions Recorded Confirmed Type Atenolol/Chlorthalidone [Tenoretic 1 tab PO DAILY 09/25/17 09/25/17 History 100 Tablet] amLODIPine BESYLATE/BENAZEPRIL 1 cap PO DAILY 09/25/17 09/25/17 History [Lotrel 10-20 mg Capsule] hydrOXYzine PAMOATE [Vistaril] 25 mg PO TID PRN 09/25/17 09/25/17 History Allergies Allergy/AdvReac Type Severity Reaction Status Date / Time No Known Allergies Allergy Verified 09/25/17 16:20 Physical Examination The patient was in moderate distress secondary to pain. She is alert and able to answer questions. She is morbidly obese. Her head is normocephalic and atraumatic. She demonstrated nonlabored breathing with symmetric chest expansion. The bilateral upper extremities and left lower extremity are without deformity. A focused examination of the right leg was conducted. On inspection there was an OCL splint which was taken down. The ankle was diffusely swollen with no wrinkling of the skin. There was a superficial eschar over the medial malleolus. There were no open wounds or tenting of the skin. There is exquisite tenderness diffusely throughout the ankle. Sensation is intact to light touch the tips of the toes. There is no pain with passive range of motion of the toes. The thigh and calf are soft. Dorsalis pedis pulses palpated. The patient is able to actively plantarflex and dorsiflex her toes. Results X-rays of the ankle joint completely displaced lateral malleolus fracture with the talus dislocated out of the ankle mortise - Labs Labs: Abnormal Lab Results - Last 24 Hours (Table) 09/25/17 09/25/17 09/25/17 Range/Units 16:30 16:30 16:30 WBC 13.1 H (3.8-10.6) k/uL Neutrophils # 12.3 H (1.3-7.7) k/uL Neutrophils # (Manual) (1.3-7.7) k/uL Lymphocytes # 0.3 L (1.0-4.8) k/uL Lymphocytes # (Manual) (1.0-4.8) k/uL Sodium 107 L* (137-145) mmol/L Potassium 2.9 L* (3.5-5.1) mmol/L Chloride 66 L* (98-107) mmol/L Carbon Dioxide 21 L (22-30) mmol/L BUN 6 L (7-17) mg/dL Creatinine (0.52-1.04) mg/dL Glucose (74-99) mg/dL POC Glucose (mg/dL) (75-99) mg/dL Calcium (8.4-10.2) mg/dL Phosphorus 2.3 L (2.5-4.5) mg/dL Magnesium 1.2 L (1.6-2.3) mg/dL Total Bilirubin (0.2-1.3) mg/dL AST 227 H (14-36) U/L ALT 82 H (9-52) U/L Creatine Kinase 5772 H (30-135) U/L Total Protein 6.2 L (6.3-8.2) g/dL Albumin (3.5-5.0) g/dL Urine Appearance (Clear) Urine Protein (Negative) Urine Ketones (Negative) Urine Blood (Negative) Urine Nitrite (Negative) Ur Leukocyte Esterase (Negative) Urine RBC (0-5) /hpf Urine WBC (0-5) /hpf Urine Bacteria (None) /hpf Urine Mucus (None) /hpf Urine Opiates Screen (NotDetected) 09/25/17 09/26/17 09/26/17 Range/Units 19:20 00:00 01:31 WBC (3.8-10.6) k/uL Neutrophils # (1.3-7.7) k/uL Neutrophils # (Manual) (1.3-7.7) k/uL Lymphocytes # (1.0-4.8) k/uL Lymphocytes # (Manual) (1.0-4.8) k/uL Sodium 109 L* (137-145) mmol/L Potassium (3.5-5.1) mmol/L Chloride 74 L* (98-107) mmol/L Carbon Dioxide 20 L (22-30) mmol/L BUN 6 L (7-17) mg/dL Creatinine 0.50 L (0.52-1.04) mg/dL Glucose 105 H (74-99) mg/dL POC Glucose (mg/dL) 107 H (75-99) mg/dL Calcium (8.4-10.2) mg/dL Phosphorus (2.5-4.5) mg/dL Magnesium (1.6-2.3) mg/dL Total Bilirubin 1.4 H (0.2-1.3) mg/dL AST 184 H (14-36) U/L ALT 67 H (9-52) U/L Creatine Kinase (30-135) U/L Total Protein 5.9 L (6.3-8.2) g/dL Albumin 3.1 L (3.5-5.0) g/dL Urine Appearance Cloudy H (Clear) Urine Protein 1+ H (Negative) Urine Ketones 2+ H (Negative) Urine Blood Moderate H (Negative) Urine Nitrite Positive H (Negative) Ur Leukocyte Esterase Large H (Negative) Urine RBC 9 H (0-5) /hpf Urine WBC 70 H (0-5) /hpf Urine Bacteria Occasional H (None) /hpf Urine Mucus Rare H (None) /hpf Urine Opiates Screen Detected H (NotDetected) 09/26/17 09/26/17 09/26/17 Range/Units 03:58 03:58 11:20 WBC 10.7 H (3.8-10.6) k/uL Neutrophils # (1.3-7.7) k/uL Neutrophils # (Manual) 9.90 H (1.3-7.7) k/uL Lymphocytes # (1.0-4.8) k/uL Lymphocytes # (Manual) 0.54 L (1.0-4.8) k/uL Sodium 113 L* 113 L* (137-145) mmol/L Potassium 2.4 L* (3.5-5.1) mmol/L Chloride 75 L* 76 L* (98-107) mmol/L Carbon Dioxide 21 L (22-30) mmol/L BUN 5 L 3 L (7-17) mg/dL Creatinine 0.50 L (0.52-1.04) mg/dL Glucose 103 H (74-99) mg/dL POC Glucose (mg/dL) (75-99) mg/dL Calcium 7.5 L (8.4-10.2) mg/dL Phosphorus (2.5-4.5) mg/dL Magnesium (1.6-2.3) mg/dL Total Bilirubin (0.2-1.3) mg/dL AST 163 H (14-36) U/L ALT 65 H (9-52) U/L Creatine Kinase (30-135) U/L Total Protein 5.6 L (6.3-8.2) g/dL Albumin 2.9 L (3.5-5.0) g/dL Urine Appearance (Clear) Urine Protein (Negative) Urine Ketones (Negative) Urine Blood (Negative) Urine Nitrite (Negative) Ur Leukocyte Esterase (Negative) Urine RBC (0-5) /hpf Urine WBC (0-5) /hpf Urine Bacteria (None) /hpf Urine Mucus (None) /hpf Urine Opiates Screen (NotDetected) Microbiology - Last 24 Hours (Table) 09/25/17 19:20 Urine Culture - Preliminary Urine,Voided H & H 09/25/17 09/26/17 Range/Units 16:30 03:58 Hgb 13.6 12.2 (11.4-16.0) gm/dL Hct 38.2 36.1 (34.0-46.0) % Coagulation 09/25/17 Range/Units 16:30 INR 1.1 (<1.2) Result Diagrams: 09/26/17 03:58 09/26/17 11:20 Assessment and Plan (1) Closed right ankle fracture Current Visit: Yes Status: Acute Code(s): S82.891A - OTH FRACTURE OF RIGHT LOWER LEG, INIT FOR CLOS FX SNOMED Code(s): 30489194 Plan: The patient was examined by myself in the ER. There were no open wounds but there was an area of skin at risk and superficial necrosis over the medial malleolus likely due to the length of time that her ankle was dislocated prior to her seeking medical attention. The patient underwent closed reduction under hematoma block and application of a splint by myself in the ER. Due to her multiple medical problems including severe hyponatremia she is going to be admitted to medicine and the ICU. She will ultimately need open reduction and internal fixation of the ankle. Due to her significant swelling and skin at risk I would like to place her in an ankle spanning external fixator when she is medically stable, hopefully , 09/27/2017. We will continue to monitor her while she is in the hospital. Definitive fixation will likely take 1-2 weeks for swelling to resolve so she can safely reseed with an open reduction and internal fixation. PROCEDURE: Verbal consent for hematoma block, closed reduction, and application of bulky Pena splint was obtained. The skin over the medial ankle was prepped with alcohol and then an 18-gauge needle was inserted into the medial aspect of the ankle and 10 mL's of 2% Marcaine was injected without resistance. The needle was withdrawn. A Silvadene dressing and nonadherent gauze was placed over the medial malleolus. A gentle closed reduction was performed using the Steven maneuver. The ankle was gently wrapped with web roll and a well-padded bulky Pena splint varus mold was applied. After the splint was applied it was overwrapped with an Luisito wrap. Once the splint had set the toes were warm and well perfused and neurovascularly intact.
[2017-09-26] MEDS: THIAMINE 100 MG TAB PO SCH ×2 (13:34→19:19)
[2017-09-26] MEDS ORDERED: FUROSEMIDE 10 MG/ML 2 ML VIAL IV ONE (15:46)
[2017-09-26] MEDS ORDERED: SULFAMETHOX-TMP 800-160MG 1 EACH TAB PO SCH (21:00)
[2017-09-26 21:31] LABS: Anion Gap 12 mmol/L; Blood Urea Nitrogen 2 mg/dL (7-17); Calcium 7.6 mg/dL (8.4-10.2); Carbon Dioxide 29 mmol/L (22-30); Glucose 99 mg/dL (74-99); Magnesium 1.8 mg/dL (1.6-2.3); Potassium 3.1 mmol/L (3.5-5.1)
[2017-09-26 21:39] LABS: Chloride 75 mmol/L (98-107); Sodium 116 mmol/L (137-145)
[2017-09-27] MEDS: POTASSIUM CHLORIDE 20 MEQ in WATER FOR INJECTION 1 100ML.BAG IVPB SCH ×3 (01:11→05:31)
[2017-09-27 05:28] LABS: Basophils % (A) 0 %; Eosinophils # (A) 0.1 k/uL (0-0.7); Eosinophils % (A) 1 %; HCT 30.8 % (34.0-46.0); HGB 10.8 gm/dL (11.4-16.0); Lymphocytes # (A) 0.6 k/uL (1.0-4.8); Lymphocytes % (A) 10 %; MCH 32.1 pg (25.0-35.0); MCV 91.6 fL (80.0-100.0); Mean Platelet Volume 6.5; Monocytes # (A) 0.3 k/uL (0-1.0); Monocytes % (A) 6 %; Neutrophils # (A) 4.9 k/uL (1.3-7.7); Neutrophils % (A) 82 %; Platelet Count 265 k/uL (150-450); RBC 3.36 m/uL (3.80-5.40); RDW 12.4 % (11.5-15.5)
[2017-09-27 05:34] LABS: ALT 43 U/L (9-52); AST 90 U/L (14-36); Albumin 2.6 g/dL (3.5-5.0); Alkaline Phosphatase 70 U/L (38-126); Anion Gap 9 mmol/L; Blood Urea Nitrogen 2 mg/dL (7-17); Calcium 7.3 mg/dL (8.4-10.2); Carbon Dioxide 28 mmol/L (22-30); Glucose 98 mg/dL (74-99); Magnesium 2.2 mg/dL (1.6-2.3); Phosphorus 1.9 mg/dL (2.5-4.5); Potassium 3.8 mmol/L (3.5-5.1); Total Bilirubin 0.8 mg/dL (0.2-1.3); Total Protein 4.9 g/dL (6.3-8.2)
[2017-09-27 05:35] LABS: Sodium 114 mmol/L (137-145)
[2017-09-27 05:36] LABS: Chloride 77 mmol/L (98-107)
[2017-09-27] MEDS ORDERED: FUROSEMIDE 10 MG/ML 2 ML VIAL IV ONE (06:32)
[2017-09-27] MEDS: POTAS-SOD-PHOS 278-164-250 MG 1 EACH PACKET PO SCH ×2 (08:19→16:19)
[2017-09-27] MEDS: cefTRIAXone IN SWFI 1,000 MG/10 ML SYRINGE IVP SCH (08:21)
[2017-09-27] MEDS: PANTOPRAZOLE 40 MG/10 ML VIAL IVP SCH (10:10)
--- NOTE | 2017-09-27 10:44 | P.PN ---
Subjective Progress Note Date: 09/27/17 Principal diagnosis: Acute profound hyponatremia secondary to chronic beer drinking. 62-year-old female who presented to the emergency department with complaints of tripping and falling. She apparently fell over a predominance the night before. The patient apparently was on the floor for maybe 10-12 hours. She ended up fracturing her right ankle. Heavy drinker. Drinks about 5- 8 beers a day. The patient denies any complaints at the current time. She was mildly hypotensive in the emergency department. For that reason and for all the medical issues that she had an evaluation including profound hyponatremia with sodium of 107, the patient was admitted to the ICU for further monitoring and management. The patient sees Dr. Mcdonald as a primary doctor. She is doing better today. Her kidney functions remained normal. We are monitoring her creatine kinase levels. Currently, the patient's on nasal O2 at 2 L/m and a saline IV at 150 an hour. Her sodium will be rechecked. Her last sodium was 113 at about 4 AM. Patient was reevaluated today on 09/27/2017, seems to be doing well, relatively asymptomatic, no shortness of breath, no mental confusion, in no form of respiratory distress. Her sodium is up to 114 today, and the rest of the labs were noted to be unremarkable. Chloride is 77. Patient is still being followed by orthopedics regarding her right ankle fracture. Objective - Vital Signs Vital signs: Vital Signs Temp 98.2 F 09/27/17 08:00 Pulse 96 09/27/17 10:00 Resp 28 H 09/27/17 09:00 BP 94/61 09/27/17 10:00 Pulse Ox 98 09/27/17 10:00 Intake & Output 09/26/17 09/27/17 09/27/17 18:59 06:59 18:59 Intake Total 3000 1810 50 Output Total 1975 1275 750 Balance 1025 535 -700 Weight 114 kg Intake: IV 1460 50 Magnesium Sulfate-D5w Pmx 200 1 gm In Dextrose/Water 1 100ml.bag @ 100 mls/hr IVPB Q1H [facility] Rx#: [id number] Potassium Chloride 20 meq 400 50 In Water For Injection 1 100ml.bag @ 50 mls/hr IVPB Q2H [facility] Rx#: [id number] Sodium Chloride 0.9% 1, 860 000 ml @ 70 mls/hr IV . [id number] [facility] Rx#:[id number] Intake, IV Titration 2400 150 Amount Magnesium Sulfate-D5w Pmx 300 1 gm In Dextrose/Water 1 100ml.bag @ 100 mls/hr IVPB Q1H [facility] Rx#: [id number] Magnesium Sulfate-D5w Pmx 100 1 gm In Dextrose/Water 1 100ml.bag @ 100 mls/hr IVPB Q1H [facility] Rx#: [id number] Potassium Chloride 20 meq 50 In Water For Injection 1 100ml.bag @ 50 mls/hr IVPB ONCE STA Rx#: [id number] Potassium Chloride 20 meq 300 In Water For Injection 1 100ml.bag @ 50 mls/hr IVPB Q2H [facility] Rx#: [id number] Sodium Chloride 0.9% 1, 1650 150 000 ml @ 70 mls/hr IV . [id number] [facility] Rx#:[id number] Oral 600 200 Output: Urine 1975 1275 750 Other: Voiding Method Indwelling Catheter Indwelling Catheter Indwelling Catheter - Exam No acute distress, oriented 3. Nasal O2 in place HEENT examination is grossly unremarkable. Mucous membranes are moist. No oral lesions. Neck supple. Full range of motion. No adenopathy thyromegaly or neck vein distention. Cardiovascular examination reveals regular rhythm rate. S1-S2 normal. No S3 or S4. No discernible murmur noted. Lungs reveal clear breath sounds. Her sounds are equal bilaterally. No adventitious lung sounds including wheezes rhonchi or crackles. Abdomen soft bowel sounds are heard. No masses or tenderness. Extremities are intact. No cyanosis clubbing or edema. There is evidence of bulky splint noted over the right ankle, and all wrapped with Luisito wrap. Patient is status post] closed reduction. Skin is without rash or lesion. Neurologic examination is brief but nonfocal. - Labs CBC & Chem 7: 09/27/17 04:46 09/27/17 04:46 Labs: Abnormal Lab Results - Last 24 Hours (Table) 09/26/17 09/26/17 09/26/17 Range/Units 11:20 12:30 15:03 RBC (3.80-5.40) m/uL Hgb (11.4-16.0) gm/dL Hct (34.0-46.0) % Lymphocytes # (1.0-4.8) k/uL Sodium 113 L* 114 L* (137-145) mmol/L Potassium 2.4 L* (3.5-5.1) mmol/L Chloride 76 L* (98-107) mmol/L BUN 3 L (7-17) mg/dL Creatinine 0.50 L (0.52-1.04) mg/dL Glucose 103 H (74-99) mg/dL Calcium 7.5 L (8.4-10.2) mg/dL Phosphorus (2.5-4.5) mg/dL AST (14-36) U/L Total Protein (6.3-8.2) g/dL Albumin (3.5-5.0) g/dL Ur Random Sodium 99 H (30-90) mmol/L 09/26/17 09/27/17 09/27/17 Range/Units 21:01 04:46 04:46 RBC 3.36 L (3.80-5.40) m/uL Hgb 10.8 L (11.4-16.0) gm/dL Hct 30.8 L (34.0-46.0) % Lymphocytes # 0.6 L (1.0-4.8) k/uL Sodium 116 L* 114 L* (137-145) mmol/L Potassium 3.1 L (3.5-5.1) mmol/L Chloride 75 L* 77 L* (98-107) mmol/L BUN 2 L 2 L (7-17) mg/dL Creatinine 0.50 L (0.52-1.04) mg/dL Glucose (74-99) mg/dL Calcium 7.6 L 7.3 L (8.4-10.2) mg/dL Phosphorus 1.9 L (2.5-4.5) mg/dL AST 90 H (14-36) U/L Total Protein 4.9 L (6.3-8.2) g/dL Albumin 2.6 L (3.5-5.0) g/dL Ur Random Sodium (30-90) mmol/L Microbiology - Last 24 Hours (Table) 09/25/17 19:20 Urine Culture - Final Urine,Voided Assessment and Plan Assessment: Profound hyponatremia likely secondary to chronic beer ingestion Status post fall with right ankle fracture Rule out rhabdomyolysis History of hypertension Chronic alcohol abuse Recommendation: Continue IV fluid at 0.9 normal saline, continue alcohol withdrawal precautions and follow the protocol. Once her sodium is above 120, may consider transferring the patient out of the ICU. Continue seizure precautions. Continue GI and DVT prophylaxis. Time with Patient: Less than 30
[2017-09-27 10:54] LABS: Anion Gap 12 mmol/L; Blood Urea Nitrogen <2 mg/dL (7-17); Calcium 7.8 mg/dL (8.4-10.2); Carbon Dioxide 28 mmol/L (22-30); Glucose 97 mg/dL (74-99); Magnesium 1.8 mg/dL (1.6-2.3); Phosphorus 1.9 mg/dL (2.5-4.5); Potassium 3.4 mmol/L (3.5-5.1)
[2017-09-27 10:58] LABS: Sodium 115 mmol/L (137-145)
[2017-09-27 10:59] LABS: Chloride 75 mmol/L (98-107)
[2017-09-27] MEDS: ENOXAPARIN 40 MG/0.4 ML SYRINGE SQ SCH (11:00)
[2017-09-27] MEDS: THIAMINE 100 MG TAB PO SCH ×2 (11:01→16:19)
--- NOTE | 2017-09-27 11:42 | P.PN ---
Subjective Patient is awake and alert. No acute events overnight. Sodium level trending up slowly. Objective - Vital Signs Vital signs: Vital Signs Temp 98.2 F 09/27/17 08:00 Pulse 88 09/27/17 11:30 Resp 91 H 09/27/17 11:30 BP 98/52 09/27/17 11:30 Pulse Ox 97 09/27/17 11:30 Intake & Output 09/26/17 09/27/17 09/27/17 18:59 06:59 18:59 Intake Total 3000 1810 50 Output Total 1974 1275 950 Balance 1025 535 -900 Weight 114 kg Intake: IV 1460 50 Magnesium Sulfate-D5w Pmx 200 1 gm In Dextrose/Water 1 100ml.bag @ 100 mls/hr IVPB Q1H [facility] Rx#: [id number] Potassium Chloride 20 meq 400 50 In Water For Injection 1 100ml.bag @ 50 mls/hr IVPB Q2H [facility] Rx#: [id number] Sodium Chloride 0.9% 1, 860 000 ml @ 70 mls/hr IV . [id number] [facility] Rx#:[id number] Intake, IV Titration 2400 150 Amount Magnesium Sulfate-D5w Pmx 300 1 gm In Dextrose/Water 1 100ml.bag @ 100 mls/hr IVPB Q1H [facility] Rx#: [id number] Magnesium Sulfate-D5w Pmx 100 1 gm In Dextrose/Water 1 100ml.bag @ 100 mls/hr IVPB Q1H [facility] Rx#: [id number] Potassium Chloride 20 meq 50 In Water For Injection 1 100ml.bag @ 50 mls/hr IVPB ONCE STA Rx#: [id number] Potassium Chloride 20 meq 300 In Water For Injection 1 100ml.bag @ 50 mls/hr IVPB Q2H [facility] Rx#: [id number] Sodium Chloride 0.9% 1, 1650 150 000 ml @ 70 mls/hr IV . [id number] [facility] Rx#:[id number] Oral 600 200 Output: Urine 1974 1275 950 Other: Voiding Method Indwelling Catheter Indwelling Catheter Indwelling Catheter - Exam General: The patient is awake and alert, in no distress Eye: there is normal conjunctiva bilaterally. Neck: The neck is supple, there is no JVD. Cardiovascular: Normal S1-S2, no S3-S4, no murmurs. Respiratory: Lungs clear to auscultation bilaterally Gastrointestinal: Abdomen is soft, nontender Musculoskeletal: There is no pedal edema. Neurological:. Speech is normal. Skin: Skin is warm and dry - Labs CBC & Chem 7: 09/27/17 04:46 09/27/17 10:33 Labs: Abnormal Lab Results - Last 24 Hours (Table) 09/26/17 09/26/17 09/26/17 Range/Units 11:20 12:30 15:03 RBC (3.80-5.40) m/uL Hgb (11.4-16.0) gm/dL Hct (34.0-46.0) % Lymphocytes # (1.0-4.8) k/uL Sodium 113 L* 114 L* (137-145) mmol/L Potassium 2.4 L* (3.5-5.1) mmol/L Chloride 76 L* (98-107) mmol/L BUN 3 L (7-17) mg/dL Creatinine 0.50 L (0.52-1.04) mg/dL Glucose 103 H (74-99) mg/dL Calcium 7.5 L (8.4-10.2) mg/dL Phosphorus (2.5-4.5) mg/dL AST (14-36) U/L Total Protein (6.3-8.2) g/dL Albumin (3.5-5.0) g/dL Ur Random Sodium 99 H (30-90) mmol/L 09/26/17 09/27/17 09/27/17 Range/Units 21:01 04:46 04:46 RBC 3.36 L (3.80-5.40) m/uL Hgb 10.8 L (11.4-16.0) gm/dL Hct 30.8 L (34.0-46.0) % Lymphocytes # 0.6 L (1.0-4.8) k/uL Sodium 116 L* 114 L* (137-145) mmol/L Potassium 3.1 L (3.5-5.1) mmol/L Chloride 75 L* 77 L* (98-107) mmol/L BUN 2 L 2 L (7-17) mg/dL Creatinine 0.50 L (0.52-1.04) mg/dL Glucose (74-99) mg/dL Calcium 7.6 L 7.3 L (8.4-10.2) mg/dL Phosphorus 1.9 L (2.5-4.5) mg/dL AST 90 H (14-36) U/L Total Protein 4.9 L (6.3-8.2) g/dL Albumin 2.6 L (3.5-5.0) g/dL Ur Random Sodium (30-90) mmol/L 09/27/17 Range/Units 10:33 RBC (3.80-5.40) m/uL Hgb (11.4-16.0) gm/dL Hct (34.0-46.0) % Lymphocytes # (1.0-4.8) k/uL Sodium 115 L* (137-145) mmol/L Potassium 3.4 L (3.5-5.1) mmol/L Chloride 75 L* (98-107) mmol/L BUN <2 L (7-17) mg/dL Creatinine 0.49 L (0.52-1.04) mg/dL Glucose (74-99) mg/dL Calcium 7.8 L (8.4-10.2) mg/dL Phosphorus 1.9 L (2.5-4.5) mg/dL AST (14-36) U/L Total Protein (6.3-8.2) g/dL Albumin (3.5-5.0) g/dL Ur Random Sodium (30-90) mmol/L Microbiology - Last 24 Hours (Table) 09/25/17 19:20 Urine Culture - Final Urine,Voided Assessment and Plan Assessment: 1. Profound hyponatremia, hypovolemic hyponatremia also worsened by a beer drinking. Patient is currently hydrated with IV fluids. nephrology following closely 2. Heavy alcohol abuse: Counseled extensively. We will continue CIWA protocol 3. Rhabdomyolysis: Currently on IV fluids. 4. Mechanical fall: We will consult PT/OT 5. Right ankle dislocation status post reduction in the emergency room. Seen and evaluated by orthopedic. Plan for external fixator today 6. Urinary tract infection, started on IV ceftriaxone awaiting urine culture 7. Hypotension: Improved. Secondary to intravascular depletion. Less likely sepsis. We will continue IV fluid hydration. Hold home blood pressure medication 8. GI and DVT prophylaxis ordered
[2017-09-27] MEDS: FUROSEMIDE 40 MG TAB PO SCH ×2 (12:10→16:19)
[2017-09-27] MEDS: MAGNESIUM SULFATE-D5W PMX 1 GM in DEXTROSE/WATER 1 100ML.BAG IVPB SCH ×2 (12:11→13:21)
[2017-09-27] MEDS: POTASSIUM CHLORIDE 10 MEQ in SODIUM CHLORIDE 0.9% 100 ML IVPB SCH ×2 (12:12→13:21)
--- NOTE | 2017-09-27 14:16 | XR ---
EXAMINATION TYPE: XR chest 1V DATE OF EXAM: 09/27/2017 COMPARISON: NONE HISTORY: Pulmonary nodule TECHNIQUE: Single frontal view of the chest is obtained. FINDINGS: Lungs are clear. No focal pneumonia or pleural effusion. No pneumothorax. Heart size joni l. No overt failure. Arthropathy of the AC joints. IMPRESSION: No acute process.
--- NOTE | 2017-09-27 14:39 | CONS ---
CONSULTATION REASON FOR CONSULT: Hyponatremia. DATE OF CONSULTATION: 09/27/2017 Patient is a 62-year-old female who was admitted to the hospital on 09/25/2017 with a history of falls. Patient states that she tripped over her pajamas and fell and she denied any light-headedness, dizziness, chest pains or shortness of breath. Patient was on Chlorthiadone at home. She was found to have a serum sodium of 107 mEq/L. Patient was admitted to the hospital and started on normal saline. Her sodium went up to 113 and 114 mEq/L the next day. She had been on normal saline at 150/mL an hour. Since the serum sodium did not improve any further after that, Nephrology was consulted. I gave her a dose of Lasix yesterday, her sodium went up to 116. IV fluids are now discontinued. Urine osmolality was at 315. Random urine sodium was 99. The patient's blood pressure had been on the lower side with systolic as low as 87 mmHg. Currently staying at about 99 to 102 mmHg for systolic. Heart rate about 68 to 91 per minute. Patient denies starting any new medications recently. She denies any significant pain and chest x-ray was not done this admission. Patient was found to have right ankle dislocation and she is status post reduction in the ER. PAST MEDICAL HISTORY: Significant for hypertension, anxiety. SOCIAL HISTORY: Negative for smoking, drugs abuse or alcohol abuse. MEDICATIONS: At home prior to his admission included Tenoretic, amlodipine/benazepril, Vistaril. ALLERGIES: None. REVIEW OF SYSTEMS: As per HPI. Other systems negative. On examination, patient is comfortable, awake. She is not in any acute distress. Blood pressure is 121/62, heart rate 98 per minute. She is afebrile. Examination of the heart, S1 and S2. Exam of the lungs, bilateral breath sounds are heard. Abdomen is soft, obese, nontender. Examination of the lower extremities shows trace edema bilaterally. The right leg is in cast. Right ankle and lower extremity is in a brace. 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 Patient moving all 4 extremities. Skin exam is unremarkable. LABS: Show sodium 115 from this morning, potassium 3.4, chloride 75, BUN less than 2, creatinine 0.49. ASSESSMENT: 1. Hypokalemia, initially hypovolemic and improved, currently euvolemic with possibly underlying SIADH. Continue off of normal saline for now. Patient improved with IV Lasix, therefore will start her on oral Lasix and check a chest x-ray. Check uric acid levels. Chest TSH, if it was not done. Random cortisol was at 13. I will also maintain the patient on fluid restriction and we will repeat labs in about 6 hours. She is advised to increase the protein intake. 2. Hypokalemia, status post replacement. 3. Hypophosphatemia, being replaced. 4. History of hypertension. 5. Dislocated right ankle, status post reduction. PLAN: Discontinue IV fluids. Maintain patient on fluid restriction. Maintain patient on oral Lasix. Check uric acid level. Check chest x-ray is and repeat labs. Increase protein in diet. Thank you for this consultation. Will continue to follow patient with you during her hospitalization. PRICILLA / RODNEY: [id number] /
[2017-09-27 18:20] LABS: Anion Gap 12 mmol/L; Blood Urea Nitrogen 2 mg/dL (7-17); Calcium 7.8 mg/dL (8.4-10.2); Carbon Dioxide 34 mmol/L (22-30); Glucose 111 mg/dL (74-99); Uric Acid 4.7 mg/dL (3.7-7.4)
[2017-09-27 18:22] LABS: Chloride 70 mmol/L (98-107); Potassium 2.9 mmol/L (3.5-5.1); Sodium 116 mmol/L (137-145)
[2017-09-27] MEDS: POTASSIUM CHLORIDE ER 20 MEQ TAB.ER PO SCH ×3 (20:07→21:41)
[2017-09-28 06:30] LABS: Basophils % (A) 1 %; Eosinophils # (A) 0.1 k/uL (0-0.7); Eosinophils % (A) 1 %; HCT 32.4 % (34.0-46.0); HGB 11.1 gm/dL (11.4-16.0); Lymphocytes # (A) 0.6 k/uL (1.0-4.8); Lymphocytes % (A) 11 %; MCH 31.6 pg (25.0-35.0); MCHC 34.1 g/dL (31.0-37.0); MCV 92.4 fL (80.0-100.0); Mean Platelet Volume 6.8; Monocytes # (A) 0.4 k/uL (0-1.0); Monocytes % (A) 8 %; Neutrophils # (A) 4.2 k/uL (1.3-7.7); Neutrophils % (A) 78 %; Platelet Count 289 k/uL (150-450); RDW 12.5 % (11.5-15.5); WBC 5.5 k/uL (3.8-10.6)
[2017-09-28] MEDS: POTAS-SOD-PHOS 278-164-250 MG 1 EACH PACKET PO SCH ×2 (06:42→17:38)
[2017-09-28 06:47] LABS: ALT 38 U/L (9-52); AST 74 U/L (14-36); Albumin 2.9 g/dL (3.5-5.0); Alkaline Phosphatase 71 U/L (38-126); Anion Gap 10 mmol/L; Blood Urea Nitrogen 4 mg/dL (7-17); Calcium 7.6 mg/dL (8.4-10.2); Carbon Dioxide 35 mmol/L (22-30); Glucose 101 mg/dL (74-99); Magnesium 1.6 mg/dL (1.6-2.3); Phosphorus 2.6 mg/dL (2.5-4.5); Potassium 3.5 mmol/L (3.5-5.1); Total Bilirubin 0.9 mg/dL (0.2-1.3); Total Protein 5.6 g/dL (6.3-8.2)
[2017-09-28 06:48] LABS: Chloride 70 mmol/L (98-107); Sodium 115 mmol/L (137-145)
[2017-09-28] MEDS ORDERED: TOLVAPTAN 15 MG 1/2 TABLET PO ONE (09:02)
[2017-09-28] MEDS ORDERED: POTASSIUM CHLORIDE ER 20 MEQ TAB.ER PO STA (09:03)
[2017-09-28] MEDS: ENOXAPARIN 40 MG/0.4 ML SYRINGE SQ SCH (09:13)
[2017-09-28] MEDS: THIAMINE 100 MG TAB PO SCH ×2 (09:13→17:37)
[2017-09-28] MEDS: PANTOPRAZOLE 40 MG/10 ML VIAL IVP SCH (09:14)
[2017-09-28] MEDS: FUROSEMIDE 40 MG TAB PO SCH ×2 (09:14→17:37)
[2017-09-28] MEDS: cefTRIAXone IN SWFI 1,000 MG/10 ML SYRINGE IVP SCH (09:21)
--- NOTE | 2017-09-28 11:16 | XR ---
EXAMINATION TYPE: XR ankle complete RT DATE OF EXAM: 09/28/2017 COMPARISON: 09/25/2017 HISTORY: 62-year-old female assess fracture stability, splenic versus surgery. TECHNIQUE: 3 views in cast FINDINGS: There is a displaced bimalleolar equivalent, stable ankle fracture. There is medial clear space widen ing of approximately 1.4 cm compatible with deltoid ligament disruption. Oblique fracture of the dist al fibula is present with displacement of 1.1 cm. This has increased as compared to 09/25/2017. IMPRESSION: Unstable, displaced, bimalleolar equivalent right ankle fractures. Displacement has increased as comp ared to in cast views from 09/25/2017.
[2017-09-28] MEDS: MAGNESIUM OXIDE 400 MG TAB PO SCH (11:20)
--- NOTE | 2017-09-28 11:32 | P.PN ---
Subjective Progress Note Date: 09/28/17 Principal diagnosis: Acute profound hyponatremia suspect secondary to chronic beer drinking. 62-year-old female who presented to the emergency department with complaints of tripping and falling. She apparently fell over her pajamas the night before. The patient apparently was on the floor for maybe 10-12 hours. She ended up fracturing her right ankle. Heavy drinker. Drinks about 5- 8 beers a day. The patient denies any complaints at the current time. She was mildly hypotensive in the emergency department. For that reason and for all the medical issues that she had an evaluation including profound hyponatremia with sodium of 107, the patient was admitted to the ICU for further monitoring and management. The patient sees Dr. Mcdonald as a primary doctor. She is doing better today. Her kidney functions remained normal. We are monitoring her creatine kinase levels. Currently, the patient's on nasal O2 at 2 L/m and a saline IV at 150 an hour. Her sodium will be rechecked. Her last sodium was 113 at about 4 AM. Patient was reevaluated today on 09/27/2017, seems to be doing well, relatively asymptomatic, no shortness of breath, no mental confusion, in no form of respiratory distress. Her sodium is up to 114 today, and the rest of the labs were noted to be unremarkable. Chloride is 77. Patient is still being followed by orthopedics regarding her right ankle fracture. The patient is seen again today 09/28/2017 on the selective care unit. She is awake and alert in no acute distress. She is just quite anxious regarding the possibility of surgery of the right ankle. She had been seen by Dr. Ruiz who ordered follow-up x-rays today. Report reveals an unstable, displaced, by Isacc old or equivalent right ankle fracture. The displacement has increased as compared to previous on 09/25/2017. She has had ongoing issues of electrolyte disturbance. Sodium is 1:15, potassium 3.5, chloride 70, bicarb 35. No leukocytosis. Hemoglobin 11.1. Nephrology is on the case. There was some concern regarding possible underlying SIADH. She is improved with Lasix and remains on diuretics and fluid restrictions. She remains in negative balance. She has no pulmonary complaints. She's afebrile. Maintaining good O2 saturations in the 90s on room air. Objective - Vital Signs Vital signs: Vital Signs Temp 96.8 F L 09/28/17 08:00 Pulse 102 H 09/28/17 08:00 Resp 18 09/28/17 08:00 BP 114/61 09/28/17 08:00 Pulse Ox 94 L 09/28/17 08:00 Intake & Output 09/27/17 09/28/17 09/28/17 18:59 06:59 18:59 Intake Total 50 10 Output Total 2950 825 Balance -2900 -815 Weight 114 kg 106.5 kg Intake: IV 50 10 0.9 10 Potassium Chloride 20 meq 50 In Water For Injection 1 100ml.bag @ 50 mls/hr IVPB Q2H [facility] Rx#: [id number] Output: Urine 2950 825 Uretheral (Silverman) 675 Other: Voiding Method Indwelling Catheter Indwelling Catheter Indwelling Catheter - Exam GENERAL EXAM: Alert, anxious, comfortable in no apparent distress. HEAD: Normocephalic. EYES: Normal reaction of pupils, equal size. NOSE: Clear with pink turbinates. THROAT: No erythema or exudates. NECK: No masses, no JVD. CHEST: No chest wall deformity. LUNGS: Equal air entry with no crackles, wheeze, rhonchi or dullness. CVS: S1 and S2 normal with no audible murmur, regular rhythm. ABDOMEN: No hepatosplenomegaly, normal bowel sounds, no guarding or rigidity. SPINE: No scoliosis or deformity SKIN: No rashes CENTRAL NERVOUS SYSTEM: No focal deficits, tone is normal in all 4 extremities. EXTREMITIES: Soft cast and Luisito wrap to the right lower extremity. Peripheral pulses are intact. - Labs CBC & Chem 7: 09/28/17 05:55 09/28/17 05:55 Labs: Abnormal Lab Results - Last 24 Hours (Table) 09/27/17 09/28/17 09/28/17 Range/Units 17:42 05:55 05:55 RBC 3.50 L (3.80-5.40) m/uL Hgb 11.1 L (11.4-16.0) gm/dL Hct 32.4 L (34.0-46.0) % Lymphocytes # 0.6 L (1.0-4.8) k/uL Sodium 116 L* 115 L* (137-145) mmol/L Potassium 2.9 L* (3.5-5.1) mmol/L Chloride 70 L* 70 L* (98-107) mmol/L Carbon Dioxide 34 H 35 H (22-30) mmol/L BUN 2 L 4 L (7-17) mg/dL Glucose 111 H 101 H (74-99) mg/dL Calcium 7.8 L 7.6 L (8.4-10.2) mg/dL AST 74 H (14-36) U/L Total Protein 5.6 L (6.3-8.2) g/dL Albumin 2.9 L (3.5-5.0) g/dL Assessment and Plan Assessment: Impression: Profound hyponatremia likely secondary to chronic beer ingestion and suspect underlying SIADH. Remains on diuretics and fluid restrictions. Status post fall with right ankle fracture today's chest x-ray reveals increased displacement. Orthopedics is following. Rule out rhabdomyolysis History of hypertension Chronic alcohol abuse Plan: The patient was seen and evaluated by Dr. Ordonez. She is stable from the pulmonary and critical care standpoint. She remains quite hyponatremic. Continued with diuretics and fluid restrictions. Continue seizure precautions. Continue CIWA protocol. X-ray reveals worsening displacement of the right ankle and may need surgical intervention. We will continue to follow make further recommendations based on her clinical status. I, the cosigning physician, performed a history & physical examination of the patient. Lungs sounds are clear. Maintaining good O2 saturations in the 90s on room air. I discussed the assessment and plan of care with my nurse practitioner, Patty Dudley. I attest to the above note as dictated by her.
--- NOTE | 2017-09-28 12:04 | P.PN ---
Subjective Patient is awake and alert. No acute events overnight. Sodium level trending up slowly. Objective - Vital Signs Vital signs: Vital Signs Temp 96.8 F L 09/28/17 08:00 Pulse 102 H 09/28/17 08:00 Resp 18 09/28/17 08:00 BP 114/61 09/28/17 08:00 Pulse Ox 94 L 09/28/17 08:00 Intake & Output 09/27/17 09/28/17 09/28/17 18:59 06:59 18:59 Intake Total 50 10 Output Total 2950 825 Balance -2900 -815 Weight 114 kg 106.5 kg Intake: IV 50 10 0.9 10 Potassium Chloride 20 meq 50 In Water For Injection 1 100ml.bag @ 50 mls/hr IVPB Q2H [facility] Rx#: [id number] Output: Urine 2950 825 Uretheral (Silverman) 675 Other: Voiding Method Indwelling Catheter Indwelling Catheter Indwelling Catheter - Exam General: The patient is awake and alert, in no distress Eye: there is normal conjunctiva bilaterally. Neck: The neck is supple, there is no JVD. Cardiovascular: Normal S1-S2, no S3-S4, no murmurs. Respiratory: Lungs clear to auscultation bilaterally Gastrointestinal: Abdomen is soft, nontender Musculoskeletal: There is no pedal edema. Neurological:. Speech is normal. Skin: Skin is warm and dry - Labs CBC & Chem 7: 09/28/17 05:55 09/28/17 05:55 Labs: Abnormal Lab Results - Last 24 Hours (Table) 09/27/17 09/28/17 09/28/17 Range/Units 17:42 05:55 05:55 RBC 3.50 L (3.80-5.40) m/uL Hgb 11.1 L (11.4-16.0) gm/dL Hct 32.4 L (34.0-46.0) % Lymphocytes # 0.6 L (1.0-4.8) k/uL Sodium 116 L* 115 L* (137-145) mmol/L Potassium 2.9 L* (3.5-5.1) mmol/L Chloride 70 L* 70 L* (98-107) mmol/L Carbon Dioxide 34 H 35 H (22-30) mmol/L BUN 2 L 4 L (7-17) mg/dL Glucose 111 H 101 H (74-99) mg/dL Calcium 7.8 L 7.6 L (8.4-10.2) mg/dL AST 74 H (14-36) U/L Total Protein 5.6 L (6.3-8.2) g/dL Albumin 2.9 L (3.5-5.0) g/dL Assessment and Plan Assessment: 1. Profound hyponatremia, hypovolemic hyponatremia also worsened by a beer drinking. Patient was hydrated with IV fluids. nephrology following closely 2. Heavy alcohol abuse: Counseled extensively. We will continue CIWA protocol 3. Rhabdomyolysis: Currently on IV fluids. 4. Mechanical fall: We will consult PT/OT 5. Right ankle dislocation status post reduction in the emergency room. Seen and evaluated by orthopedic. external fixator in place. Awaiting final recommendation for possible surgery 6. Urinary tract infection, started on IV ceftriaxone awaiting urine culture 7. Hypotension: Improved. Secondary to intravascular depletion. Less likely sepsis. We will continue IV fluid hydration. Hold home blood pressure medication 8. GI and DVT prophylaxis ordered
--- NOTE | 2017-09-28 12:53 | P.PN ---
Progress Note - Text The patient is a morbidly obese alcoholic with a grossly unstable ankle fracture dislocation. She was seen in the ER this past Sunday where an attempt at closed reduction and splinting was performed. The initial x-rays showed reduction. We wanted to place an external fixator but due to her electrolytes being severely low surgery was postponed by anesthesia. Repeat x- rays today showed subluxation of the ankle. Due to the persistent instability and displacement of the ankle fracture, poor medical ability to heal, and skin risk over the medial malleolus I feel that it is medically necessary to the take the patient to the operating room to place an external fixator to reduce the ankle and allow wound care over her wound.
[2017-09-28] MEDS ORDERED: SODIUM CHLORIDE 0.9% 1,000 ML IV ONE ×2 (14:22→16:49)
[2017-09-28] MEDS ORDERED: PHENYLEPHRINE-0.9% NACL SYG 1 MG/10 ML SYRINGE ONE (14:33)
[2017-09-28] MEDS ORDERED: fentaNYL (PF) 50 MCG/ML 2 ML AMP ONE (14:33)
[2017-09-28] MEDS ORDERED: LIDOCAINE 1% INJ 10MG/ML (20 ML MDV) ONE (14:33)
[2017-09-28] MEDS ORDERED: PROPOFOL 10 MG/ML 20 ML VIAL IV ONE (14:33)
[2017-09-28] MEDS ORDERED: ePHEDrine SULFATE/0.9% NACL/PF 50 MG/5 ML SYRINGE IV ONE (14:33)
[2017-09-28] MEDS ORDERED: ESMOLOL 100 MG/10 ML VIAL ONE (14:33)
[2017-09-28] MEDS ORDERED: SUCCINYLCHOLINE CHLORIDE 100 MG/5 ML SYR IV ONE (14:33)
--- NOTE | 2017-09-28 15:37 | PN ---
PROGRESS NOTE Patient is seen for followup for hyponatremia which appears to be secondary to SIADH. The patient was initially hypovolemic and her serum sodium improved initially following which I did not increase further with the saline and in fact improved with Lasix. She is currently maintained on oral Lasix and today the sodium is not changed from yesterday. In fact, it is at 115 from 116. The patient is maintained on fluid restriction as well. Her blood pressure has been on the lower side. I will start her on 1 dose. I will start her on tolvaptan. We will also start her on salt tablets. EXAMINATION: Currently patient is awake comfortable. Blood pressure is 114/61, heart rate 102 per minute patient is afebrile. The patient states that she is scared about having surgery for her dislocated right ankle fracture. Otherwise, patient denies any chest pain, shortness of breath, nausea, vomiting or abdominal pain. Examination of the heart S1, S2. Examination lungs bilateral breath sounds are heard. Abdomen is soft, nontender. Morbidly obese examination. Lower extremity shows edema 1+ bilaterally, more on the right leg. 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 Patient moving all 4 extremities. LAB: Show sodium 115, potassium 3.5, chloride 70, BUN 4, serum creatinine 0.6, albumin 2.9. ASSESSMENT: 1. Hyponatremia initially hypovolemic and improved. Currently, it appears to be more secondary to Syndrome of inappropriate antidiuretic hormone. The patient is maintained on fluid restriction. I will give her 1 dose of tolvaptan and will start her on sodium chloride tablets. She is also advised to increase her oral protein intake and I will continue with the Lasix but decrease dose to once a day. 2. Right ankle dislocated fracture being considered for surgery. 3. Hypokalemia, status post replacement. 4. Hypophosphatemia, status post replacement. 5. Obesity. PLAN: Tolvaptan x1. Replace potassium and magnesium and I will also start the patient on sodium chloride tabs. Repeat serum sodium tomorrow morning. MMODL / IJN: [id number] /
--- NOTE | 2017-09-28 16:02 | P.OP ---
Date of Procedure: 09/28/17 Preoperative Diagnosis: 1. Closed right ankle fracture dislocation 2. Morbid obesity with BMI of 47 3. Chronic alcohol abuse 4. Severe hyponatremia Postoperative Diagnosis: Same Procedure(s) Performed: Application of ankle spanning external fixator, right ankle Anesthesia: KRISHNA Surgeon: Darryl Ruiz Pr Manager #1: Hardeep Iraheta IV fluids (ml): 300 Pathology: none sent Condition: stable Disposition: PACU Indications for Procedure: The patient is a 62-year-old female with multiple medical problems including chronic alcohol abuse and severe hyponatremia. She sustained a fall this past Sunday resulting in a fracture dislocation of the right ankle. She was found to have skin at risk over the medial malleolus. She underwent closed reduction and application of a splint while in the emergency department. She was unstable medically and was not safe for anesthesia according to the anesthesiologist on staff for the last 2 days. She was resuscitated in the ICU. This morning repeat x-rays were taken which showed subluxation of the ankle out of the mortise. Due to the skin at risk over the medial malleolus and to allow for monitoring of the soft tissue I recommended placing an ankle external fixator. I met with the patient preoperatively discussed the potential risks and complications of surgery including but not limited to risk of anesthesia, risk of superficial infection, risk of deep infection, risk of delayed wound healing, risk of iatrogenic fracture, risk of intraoperative fracture, risk of postoperative fracture, risk of pin site infection, risk of damage to superficial blood vessels or nerves, risk of deep infection, risk of postoperative displacement, and possibly loss of life or limb. The patient understands that she is at significantly higher risk of having a complication due to her multiple medical problems and severe morbid obesity. Description of Procedure: The patient was identified in preoperative holding and the correct right ankle was marked with my initials. I reviewed the consent form with the patient. She was then brought back to the operating room. She is positioned on the OR table and a general anesthetic was administered. The patient's splint was taken down. There is superficial necrosis but no open wounds over the medial malleolus. The patient's right leg was then prepped and draped in standard sterile fashion. Prior to starting surgery timeout was performed identifying the correct patient, operative extremity, and procedure. I began by making a stab wound over the proximal tibia. A trocar was held down just medial to the anterior crest of the tibia. A 3.5 drill bit was used to create a packing machine pilot can router hole through the anterior and posterior cortex of the tibia. A partially threaded 5 mm Schanz pin was then placed by hand. The position of the Schanz pin was verified with fluoroscopy. I then proceeded to place a centrally threaded 6 mm Schanz pin in the calcaneus. A stab incision was made over the medial calcaneus. A 3.5 mm drill bit was used to create an opening in the medial cortex of the calcaneus. A centrally threaded 6 mm Schanz pin was then placed by hand across the calcaneus. A small stab incision was made over the lateral heel. The centrally threaded portion was within the calcaneus. Clamps were then placed on her been fiber bars which were attached to the tibial and calcaneal pins. The ankle was pulled out to length and reduced and all of the clamps were tightened. The ankle was anatomically reduced. Final fluoroscopic images the ankle were taken. Rocky Silvadene dressing was placed over the medial wound. Betadine soaked sponges were placed over the pin sites. An Luisito wrap was used to cover the external fixator. The patient was awoken from her anesthetic and transferred to PACU having tolerated the procedure well. Plan: The patient is to remain strictly nonweightbearing on her lower extremity. She is to have daily pin site care with Q-tips soaked in peroxide. She is to have a pillow under her leg at all times to prevent ulceration of her heel. We will plan on definitive fixation of her ankle fracture next week once soft tissue swelling resolves and there was wrinkling of the skin.
[2017-09-28] MEDS: SODIUM CHLORIDE TAB 1 GM TAB PO SCH (21:04)
[2017-09-29] MEDS: POTAS-SOD-PHOS 278-164-250 MG 1 EACH PACKET PO SCH ×2 (06:24→16:13)
[2017-09-29 07:00] LABS: Basophils % (A) 0 %; Eosinophils # (A) 0.2 k/uL (0-0.7); Eosinophils % (A) 4 %; HCT 32.8 % (34.0-46.0); HGB 10.6 gm/dL (11.4-16.0); Lymphocytes # (A) 0.4 k/uL (1.0-4.8); Lymphocytes % (A) 10 %; MCH 31.3 pg (25.0-35.0); MCHC 32.3 g/dL (31.0-37.0); MCV 96.7 fL (80.0-100.0); Mean Platelet Volume 6.7; Monocytes # (A) 0.4 k/uL (0-1.0); Monocytes % (A) 8 %; Neutrophils # (A) 3.4 k/uL (1.3-7.7); Neutrophils % (A) 76 %; Platelet Count 275 k/uL (150-450); RBC 3.39 m/uL (3.80-5.40); RDW 12.5 % (11.5-15.5); WBC 4.5 k/uL (3.8-10.6)
[2017-09-29 07:17] LABS: ALT 36 U/L (9-52); AST 60 U/L (14-36); Albumin 2.9 g/dL (3.5-5.0); Alkaline Phosphatase 68 U/L (38-126); Anion Gap 10 mmol/L; Blood Urea Nitrogen 4 mg/dL (7-17); Calcium 7.9 mg/dL (8.4-10.2); Carbon Dioxide 33 mmol/L (22-30); Glucose 106 mg/dL (74-99); Magnesium 1.3 mg/dL (1.6-2.3); Phosphorus 3.5 mg/dL (2.5-4.5); Potassium 3.4 mmol/L (3.5-5.1); Sodium 123 mmol/L (137-145); Total Bilirubin 0.9 mg/dL (0.2-1.3); Total Protein 5.4 g/dL (6.3-8.2)
[2017-09-29 07:22] LABS: Chloride 80 mmol/L (98-107)
[2017-09-29] MEDS: MAGNESIUM OXIDE 400 MG TAB PO SCH (08:46)
[2017-09-29] MEDS: PANTOPRAZOLE 40 MG/10 ML VIAL IVP SCH (08:46)
[2017-09-29] MEDS: SODIUM CHLORIDE TAB 1 GM TAB PO SCH ×2 (08:46→19:39)
[2017-09-29] MEDS: FUROSEMIDE 40 MG TAB PO SCH ×2 (08:46→16:13)
[2017-09-29] MEDS: ENOXAPARIN 40 MG/0.4 ML SYRINGE SQ SCH (08:46)
[2017-09-29] MEDS: THIAMINE 100 MG TAB PO SCH ×2 (08:46→16:13)
[2017-09-29] MEDS: HYDROcodone/APAP 5-325MG 1 EACH TAB PO PRN ×2 (08:49→19:39)
[2017-09-29] MEDS: cefTRIAXone IN SWFI 1,000 MG/10 ML SYRINGE IVP SCH (08:50)
--- NOTE | 2017-09-29 12:31 | P.PN ---
Subjective Patient is resting comfortably Objective - Vital Signs Vital signs: Vital Signs Temp 97.0 F L 09/29/17 11:56 Pulse 117 H 09/29/17 12:00 Resp 18 09/29/17 12:00 BP 93/69 09/29/17 11:56 Pulse Ox 94 L 09/29/17 11:56 Intake & Output 09/28/17 09/29/17 09/29/17 18:59 06:59 18:59 Intake Total 1000 Output Total 4051 1000 Balance -3051 -1000 Weight 107 kg Intake: IV 1000 Output: Urine 4050 1000 Estimated Blood Loss 1 Other: Voiding Method Indwelling Catheter Indwelling Catheter Indwelling Catheter - Exam General: The patient is awake and alert, in no distress Eye: there is normal conjunctiva bilaterally. Neck: The neck is supple, there is no JVD. Cardiovascular: Normal S1-S2, no S3-S4, no murmurs. Respiratory: Lungs clear to auscultation bilaterally Gastrointestinal: Abdomen is soft, nontender Musculoskeletal: There is no pedal edema. Large ankle external fixator on the right Neurological:. Speech is normal. Skin: Skin is warm and dry - Labs CBC & Chem 7: 09/29/17 06:26 09/29/17 06:26 Labs: Abnormal Lab Results - Last 24 Hours (Table) 09/29/17 09/29/17 Range/Units 06:26 06:26 RBC 3.39 L (3.80-5.40) m/uL Hgb 10.6 L (11.4-16.0) gm/dL Hct 32.8 L (34.0-46.0) % Lymphocytes # 0.4 L (1.0-4.8) k/uL Sodium 123 L (137-145) mmol/L Potassium 3.4 L (3.5-5.1) mmol/L Chloride 80 L* (98-107) mmol/L Carbon Dioxide 33 H (22-30) mmol/L BUN 4 L (7-17) mg/dL Glucose 106 H (74-99) mg/dL Calcium 7.9 L (8.4-10.2) mg/dL Magnesium 1.3 L (1.6-2.3) mg/dL AST 60 H (14-36) U/L Total Protein 5.4 L (6.3-8.2) g/dL Albumin 2.9 L (3.5-5.0) g/dL Assessment and Plan Assessment: 1. Profound hyponatremia, hypovolemic hyponatremia also worsened by a beer drinking. Patient was hydrated with IV fluids. nephrology following closely 2. Heavy alcohol abuse: Counseled extensively. We will continue CIWA protocol 3. Rhabdomyolysis 4. Mechanical fall: We will consult PT/OT 5. Right ankle dislocation: Seen and evaluated by orthopedic. Status post external fixator. 6. Urinary tract infection, started on IV ceftriaxone. Urine culture showed normal richie. Would finish 5 days of antibiotic. 7. Hypotension: Improved. Secondary to intravascular depletion. Less likely sepsis. We will continue IV fluid hydration. Hold home blood pressure medication 8. GI and DVT prophylaxis ordered
[2017-09-29] MEDS: MAGNESIUM SULFATE-D5W PMX 1 GM in DEXTROSE/WATER 1 100ML.BAG IVPB SCH ×2 (13:19→14:29)
[2017-09-29] MEDS: POTASSIUM CHLORIDE ER 20 MEQ TAB.ER PO SCH ×2 (13:20→14:40)
--- NOTE | 2017-09-29 18:02 | PN ---
PROGRESS NOTE The patient is seen for followup for hyponatremia which appears to be secondary to SIADH. Patient received 1 dose of tolvaptan yesterday. Her serum sodium has improved from 115-123 today. She was also started on salt tablets. Patient is also status post right ankle surgery for a closed right ankle fracture-dislocation. The patient currently has an external fixator in the right ankle. She denies any significant complaints of chest pain, shortness of breath, nausea, vomiting or abdominal pain. EXAMINATION: Blood pressure is 98/65, heart rate 115 per minute. She is afebrile. HEART: S1, S2. LUNGS: Bilateral breath sounds are heard. Decreased breath sounds at the bases. Abdomen is soft, nontender, morbidly obese. Examination lower extremities show the right lower extremity with the external fixator and trace edema noted in her left lower extremity. LABS: Show sodium 123, potassium 3.4, chloride 80, BUN 4, serum creatinine 0.56. Hemoglobin 10.6 g/dL. ASSESSMENT: 1. Hyponatremia, initially hypovolemic, currently euvolemic, status post tolvaptan with improved serum sodium. The patient is also maintained on sodium chloride tabs, which I will continue for now. Her blood pressure is slightly on the lower side and serum cortisol was not significantly low. 2. Hypokalemia. Will replace. 3. Status post right ankle surgery with external fixator. 4. Hypophosphatemia, currently being replaced and improved with a potassium of 3.5 today. PLAN: Continue with the sodium chloride tabs. Continue with oral Lasix as well. I will decrease it to once a day and repeat labs in a.m. MMODL / IJN: [id number] /
--- NOTE | 2017-09-29 19:58 | P.PN ---
Subjective Progress Note Date: 09/29/17 Principal diagnosis: S/P ex fix for right ankle fracture Patient is seen at bedside this morning. She is postop day #1 from external fixation application for unstable bimalleolar ankle fracture. She has pain at the surgical site as expected but denies any new complaints. She denies numbness, tingling or calf pain. Review of systems is negative for fever, chills, chest pain, shortness of breath or other Objective - Vital Signs Vital signs: Vital Signs Temp 96.7 F L 09/29/17 15:02 Pulse 115 H 09/29/17 15:12 Resp 18 09/29/17 15:12 BP 98/65 09/29/17 15:02 Pulse Ox 93 L 09/29/17 15:02 Intake & Output 09/29/17 09/29/17 09/30/17 06:59 18:59 06:59 Intake Total 200 Output Total 1000 1400 Balance -1000 -1400 200 Weight 107 kg Intake: Oral 200 Output: Urine 1000 1400 Other: Voiding Method Indwelling Catheter Indwelling Catheter - Exam Inspection reveals a benign surgical wounds at the pin sites. . There is no active bleeding or drainage. No pressure ulcers or wounds. Neurovascular status is intact throughout the lower extremity with motor and sensation fully intact. Calf is soft and nontender. 2+ dorsalis pedis pulse and less than 2 second cap refill is present. - Constitutional General appearance: Present: no acute distress - Psychiatric Psychiatric: Present: A&O x's 3, appropriate affect, intact judgment & insight - Labs CBC & Chem 7: 09/29/17 06:26 09/29/17 06:26 Labs: Abnormal Lab Results - Last 24 Hours (Table) 09/29/17 09/29/17 Range/Units 06:26 06:26 RBC 3.39 L (3.80-5.40) m/uL Hgb 10.6 L (11.4-16.0) gm/dL Hct 32.8 L (34.0-46.0) % Lymphocytes # 0.4 L (1.0-4.8) k/uL Sodium 123 L (137-145) mmol/L Potassium 3.4 L (3.5-5.1) mmol/L Chloride 80 L* (98-107) mmol/L Carbon Dioxide 33 H (22-30) mmol/L BUN 4 L (7-17) mg/dL Glucose 106 H (74-99) mg/dL Calcium 7.9 L (8.4-10.2) mg/dL Magnesium 1.3 L (1.6-2.3) mg/dL AST 60 H (14-36) U/L Total Protein 5.4 L (6.3-8.2) g/dL Albumin 2.9 L (3.5-5.0) g/dL Assessment and Plan (1) Closed right ankle fracture Narrative/Plan: She will continue with routine postop orthopedic protocol including pain management, wound care including daily dressing changes with silvadene and pin site care, non weightbearing, DVT prophylaxis and medical management. Current Visit: Yes Status: Acute Code(s): S82.891A - OTH FRACTURE OF RIGHT LOWER LEG, INIT FOR CLOS FX SNOMED Code(s): 12941788 Time with Patient: Less than 30
--- NOTE | 2017-09-29 21:47 | XR ---
EXAMINATION TYPE: XR ankle limited RT, [place] guidance operating room DATE OF EXAM: 09/28/2017 COMPARISON: NONE HISTORY: 62-year-old female placement of external fixator for ankle fracture FINDINGS: 3 images demonstrating drilling for anchor points in the hindfoot for external fixator placement. FLUOROSCOPY Fluoroscopy time of 60 seconds was used during right ankle external fixator placement. 3 image/s doc ument/s the procedure. IMPRESSION: Intraoperative fluoroscopy as above
[2017-09-30 06:45] LABS: Basophils % (A) 1 %; Eosinophils # (A) 0.3 k/uL (0-0.7); Eosinophils % (A) 7 %; HCT 34.3 % (34.0-46.0); HGB 11.4 gm/dL (11.4-16.0); Lymphocytes # (A) 0.7 k/uL (1.0-4.8); Lymphocytes % (A) 15 %; MCH 31.6 pg (25.0-35.0); MCHC 33.3 g/dL (31.0-37.0); MCV 94.8 fL (80.0-100.0); Monocytes # (A) 0.4 k/uL (0-1.0); Monocytes % (A) 9 %; Neutrophils # (A) 2.9 k/uL (1.3-7.7); Neutrophils % (A) 66 %; Platelet Count 315 k/uL (150-450); RBC 3.62 m/uL (3.80-5.40); RDW 12.6 % (11.5-15.5); WBC 4.4 k/uL (3.8-10.6)
[2017-09-30] MEDS: PANTOPRAZOLE 40 MG TABLET PO SCH (06:46)
[2017-09-30 06:57] LABS: ALT 31 U/L (9-52); AST 46 U/L (14-36); Albumin 3.1 g/dL (3.5-5.0); Alkaline Phosphatase 70 U/L (38-126); Anion Gap 7 mmol/L; Blood Urea Nitrogen 6 mg/dL (7-17); Calcium 8.2 mg/dL (8.4-10.2); Carbon Dioxide 36 mmol/L (22-30); Glucose 100 mg/dL (74-99); Magnesium 1.5 mg/dL (1.6-2.3); Phosphorus 3.9 mg/dL (2.5-4.5); Potassium 3.3 mmol/L (3.5-5.1); Sodium 122 mmol/L (137-145); Total Bilirubin 0.8 mg/dL (0.2-1.3); Total Protein 5.7 g/dL (6.3-8.2)
[2017-09-30 07:00] LABS: Chloride 79 mmol/L (98-107)
[2017-09-30] MEDS ORDERED: TOLVAPTAN 15 MG 1/2 TABLET PO ONE (08:43)
[2017-09-30] MEDS: MAGNESIUM SULFATE-D5W PMX 1 GM in DEXTROSE/WATER 1 100ML.BAG IVPB SCH ×2 (08:46→10:23)
[2017-09-30] MEDS: cefTRIAXone IN SWFI 1,000 MG/10 ML SYRINGE IVP SCH (08:48)
[2017-09-30] MEDS ORDERED: TOLVAPTAN 30 MG TABLET PO ONE (09:00)
[2017-09-30] MEDS: SODIUM CHLORIDE TAB 1 GM TAB PO SCH ×2 (09:02→21:55)
[2017-09-30] MEDS: MAGNESIUM OXIDE 400 MG TAB PO SCH ×2 (09:02→21:55)
[2017-09-30] MEDS: ENOXAPARIN 40 MG/0.4 ML SYRINGE SQ SCH (09:02)
[2017-09-30] MEDS: FUROSEMIDE 40 MG TAB PO SCH ×2 (09:02→17:30)
[2017-09-30] MEDS: POTASSIUM CHLORIDE ER 20 MEQ TAB.ER PO SCH ×2 (09:07→12:00)
[2017-09-30] MEDS: THIAMINE 100 MG TAB PO SCH ×2 (11:59→17:36)
--- NOTE | 2017-09-30 13:00 | P.PN ---
Subjective Patient is is doing well today. No events overnight. Objective - Vital Signs Vital signs: Vital Signs Temp 97 F L 09/30/17 11:26 Pulse 133 H 09/30/17 11:26 Resp 20 09/30/17 11:26 BP 109/62 09/30/17 11:26 Pulse Ox 96 09/30/17 11:26 Intake & Output 09/29/17 09/30/17 09/30/17 18:59 06:59 18:59 Intake Total 200 270 Output Total 1400 1250 Balance -1400 -1050 270 Weight 105 kg Intake: Oral 200 270 Output: Urine 1400 1250 Other: Voiding Method Indwelling Catheter Indwelling Catheter Indwelling Catheter - Exam General: The patient is awake and alert, in no distress Eye: there is normal conjunctiva bilaterally. Neck: The neck is supple, there is no JVD. Cardiovascular: Normal S1-S2, no S3-S4, no murmurs. Respiratory: Lungs clear to auscultation bilaterally Gastrointestinal: Abdomen is soft, nontender Musculoskeletal: There is no pedal edema. Large ankle external fixator on the right Neurological:. Speech is normal. Skin: Skin is warm and dry - Labs CBC & Chem 7: 09/30/17 06:24 09/30/17 06:24 Labs: Abnormal Lab Results - Last 24 Hours (Table) 09/30/17 09/30/17 Range/Units 06:24 06:24 RBC 3.62 L (3.80-5.40) m/uL Lymphocytes # 0.7 L (1.0-4.8) k/uL Sodium 122 L (137-145) mmol/L Potassium 3.3 L (3.5-5.1) mmol/L Chloride 79 L* (98-107) mmol/L Carbon Dioxide 36 H (22-30) mmol/L BUN 6 L (7-17) mg/dL Glucose 100 H (74-99) mg/dL Calcium 8.2 L (8.4-10.2) mg/dL Magnesium 1.5 L (1.6-2.3) mg/dL AST 46 H (14-36) U/L Total Protein 5.7 L (6.3-8.2) g/dL Albumin 3.1 L (3.5-5.0) g/dL Assessment and Plan Assessment: 1. Profound hyponatremia, hypovolemic hyponatremia also worsened by a beer drinking. Patient was hydrated with IV fluids. nephrology following closely 2. Heavy alcohol abuse: Counseled extensively. We will continue CIWA protocol 3. Rhabdomyolysis 4. Mechanical fall: We will consult PT/OT 5. Right ankle dislocation: Seen and evaluated by orthopedic. Status post external fixator. 6. Urinary tract infection, started on IV ceftriaxone. Urine culture showed normal richie. Would finish 5 days of antibiotic. 7. Hypotension: Improved. Secondary to intravascular depletion. Less likely sepsis. We will continue IV fluid hydration. Hold home blood pressure medication 8. GI and DVT prophylaxis ordered
--- NOTE | 2017-09-30 13:40 | P.PN ---
Subjective Progress Note Date: 09/30/17 Principal diagnosis: S/P ex fix for right ankle fracture Patient is seen at bedside this morning. She is postop day #2 from external fixation application for unstable bimalleolar ankle fracture. Her pain is well controlled and denies any new complaints. She denies numbness, tingling or calf pain. Review of systems is negative for fever, chills, chest pain, shortness of breath or other Objective - Vital Signs Vital signs: Vital Signs Temp 97 F L 09/30/17 11:26 Pulse 133 H 09/30/17 11:26 Resp 20 09/30/17 11:26 BP 109/62 09/30/17 11:26 Pulse Ox 96 09/30/17 11:26 Intake & Output 09/29/17 09/30/17 09/30/17 18:59 06:59 18:59 Intake Total 200 270 Output Total 1400 1250 Balance -1400 -1050 270 Weight 105 kg Intake: Oral 200 270 Output: Urine 1400 1250 Other: Voiding Method Indwelling Catheter Indwelling Catheter Indwelling Catheter - Exam Inspection reveals a benign surgical wounds at the pin sites. There is no active bleeding or drainage. No pressure ulcers or wounds. Swelling improved. Neurovascular status is intact throughout the lower extremity with motor and sensation fully intact. Calf is soft and nontender. 2+ dorsalis pedis pulse and less than 2 second cap refill is present. - Constitutional General appearance: Present: no acute distress - Psychiatric Psychiatric: Present: A&O x's 3, appropriate affect, intact judgment & insight - Labs CBC & Chem 7: 09/30/17 06:24 09/30/17 06:24 Labs: Abnormal Lab Results - Last 24 Hours (Table) 09/30/17 09/30/17 Range/Units 06:24 06:24 RBC 3.62 L (3.80-5.40) m/uL Lymphocytes # 0.7 L (1.0-4.8) k/uL Sodium 122 L (137-145) mmol/L Potassium 3.3 L (3.5-5.1) mmol/L Chloride 79 L* (98-107) mmol/L Carbon Dioxide 36 H (22-30) mmol/L BUN 6 L (7-17) mg/dL Glucose 100 H (74-99) mg/dL Calcium 8.2 L (8.4-10.2) mg/dL Magnesium 1.5 L (1.6-2.3) mg/dL AST 46 H (14-36) U/L Total Protein 5.7 L (6.3-8.2) g/dL Albumin 3.1 L (3.5-5.0) g/dL Assessment and Plan (1) Closed right ankle fracture Narrative/Plan: She will continue with routine postop orthopedic protocol including pain management, wound care including daily dressing changes with silvadene and pin site care, elevation, non weightbearing, DVT prophylaxis and medical management. Current Visit: Yes Status: Acute Priority: Medium Code(s): S82.891A - OTH FRACTURE OF RIGHT LOWER LEG, INIT FOR CLOS FX SNOMED Code(s): 70964706 Time with Patient: Less than 30
[2017-09-30] MEDS ORDERED: SODIUM CHLORIDE 0.9% 500 ML IV ONE (15:37)
--- NOTE | 2017-09-30 16:16 | PN ---
PROGRESS NOTE The patient is seen for followup for hyponatremia, which is secondary to SIADH. Patient received 1 dose of tolvaptan and her sodium improved significantly from 115- 123. She did not get the dose yesterday, although I started her on sodium chloride tabs as blood pressure had been low and urine osmolality was not significantly high. This morning, sodium is low at 122. Therefore, patient will receive another dose of tolvaptan today. She is status post surgery for right ankle fracture, currently with an external fixator. EXAMINATION: Today blood pressure is 109/62, heart rate 130 per minute. She is afebrile. Examination of the heart S1, S2. Examination of lungs decreased breath sounds at the bases. Abdomen is soft, nontender, obese. Examination lower extremity shows trace edema mainly in the right lower extremity. No edema left lower extremity. LABS SHOW: Sodium 132, potassium 3.3, chloride 79, BUN 6, serum creatinine 0.6, hemoglobin 11.4 g/dL. ASSESSMENT: 1. Hyponatremia, initially hypovolemic, currently euvolemic secondary to Syndrome of inappropriate antidiuretic hormone, status post tolvaptan x1. I will repeat another dose of Samsca today. Continue with fluid restriction and sodium chloride tabs. The patient is also on oral Lasix, which we can continue for now. 2. Hypokalemia, currently being replaced. 3. Hypomagnesemia. Maintained on supplementation. 4. Hypophosphatemia, status post replacement. 5. Right ankle fracture status post external fixator and reduction of the fracture. PLAN: 1. Repeat tolvaptan. 2. Continue fluid restriction. 3. Repeat labs in a.m. MMODL / IJN: [id number] /
[2017-09-30] MEDS: HYDROcodone/APAP 5-325MG 1 EACH TAB PO PRN (16:17)
[2017-09-30] MEDS: METOPROLOL TARTRATE 12.5 MG TAB PO SCH (17:36)
[2017-10-01 06:37] LABS: Basophils % (A) 1 %; Eosinophils # (A) 0.3 k/uL (0-0.7); Eosinophils % (A) 5 %; HGB 11.4 gm/dL (11.4-16.0); Lymphocytes # (A) 0.6 k/uL (1.0-4.8); Lymphocytes % (A) 11 %; MCH 32.1 pg (25.0-35.0); MCHC 33.6 g/dL (31.0-37.0); MCV 95.4 fL (80.0-100.0); Mean Platelet Volume 6.4; Monocytes # (A) 0.4 k/uL (0-1.0); Monocytes % (A) 8 %; Neutrophils # (A) 3.9 k/uL (1.3-7.7); Neutrophils % (A) 73 %; Platelet Count 362 k/uL (150-450); RBC 3.56 m/uL (3.80-5.40); RDW 12.8 % (11.5-15.5); WBC 5.3 k/uL (3.8-10.6)
[2017-10-01 06:42] LABS: ALT 28 U/L (9-52); AST 39 U/L (14-36); Albumin 3.1 g/dL (3.5-5.0); Alkaline Phosphatase 71 U/L (38-126); Anion Gap 8 mmol/L; Blood Urea Nitrogen 10 mg/dL (7-17); Calcium 9.1 mg/dL (8.4-10.2); Carbon Dioxide 32 mmol/L (22-30); Chloride 85 mmol/L (98-107); Glucose 102 mg/dL (74-99); Magnesium 1.7 mg/dL (1.6-2.3); Sodium 125 mmol/L (137-145); Total Bilirubin 0.8 mg/dL (0.2-1.3); Total Protein 5.7 g/dL (6.3-8.2)
[2017-10-01] MEDS: PANTOPRAZOLE 40 MG TABLET PO SCH (06:52)
[2017-10-01] MEDS: ENOXAPARIN 40 MG/0.4 ML SYRINGE SQ SCH (08:05)
[2017-10-01] MEDS: METOPROLOL TARTRATE 12.5 MG TAB PO SCH ×2 (08:06→20:02)
[2017-10-01] MEDS: MAGNESIUM OXIDE 400 MG TAB PO SCH ×2 (08:06→20:02)
[2017-10-01] MEDS: FUROSEMIDE 40 MG TAB PO SCH ×2 (08:06→17:21)
[2017-10-01] MEDS: SODIUM CHLORIDE TAB 1 GM TAB PO SCH ×2 (08:07→20:02)
[2017-10-01] MEDS: cefTRIAXone IN SWFI 1,000 MG/10 ML SYRINGE IVP SCH (08:09)
--- NOTE | 2017-10-01 08:54 | P.PN ---
Subjective Patient is seen in follow-up for hyponatremia. Sodium level is up to 125 today. She did receive 2 doses of Samsca so far - last dose on September 30. She underwent right ankle surgery. Currently resting in bed. Oral intake is good. No vomiting or diarrhea. Denies chest pain or shortness of breath. Vital signs are stable. General: The patient appeared well nourished and normally developed. HEENT: Head exam is unremarkable. Neck is without jugular venous distension. LUNGS: Lungs are clear to auscultation and percussion. Breath sounds decreased. HEART: Rate and Rhythm are regular. First and second heart sounds normal. No murmurs, rubs or gallops. ABDOMEN: Abdominal exam reveals normal bowel sounds. Non-tender and non- distended. No evidence of peritonitis. EXTREMITITES: No clubbing, cyanosis, or edema. Objective - Vital Signs Vital signs: Vital Signs Temp 97.1 F L 10/01/17 04:00 Pulse 121 H 10/01/17 04:00 Resp 18 10/01/17 04:00 BP 119/79 10/01/17 04:00 Pulse Ox 93 L 10/01/17 04:00 Intake & Output 09/30/17 10/01/17 10/01/17 18:59 06:59 18:59 Intake Total 1330 Output Total 700 800 Balance 630 -800 Weight 102.5 kg Intake: IV 700 Magnesium Sulfate-D5w Pmx 200 1 gm In Dextrose/Water 1 100ml.bag @ 100 mls/hr IVPB Q1H ROBERT Rx#: [id number] Sodium Chloride 0.9% 500 500 ml @ 999 mls/hr IV .Q31M ONE Rx#:[id number] Oral 630 Output: Urine 700 800 Other: Voiding Method Indwelling Catheter Indwelling Catheter # Voids 300 - Labs CBC & Chem 7: 10/01/17 06:08 10/01/17 06:08 Labs: Abnormal Lab Results - Last 24 Hours (Table) 10/01/17 10/01/17 Range/Units 06:08 06:08 RBC 3.56 L (3.80-5.40) m/uL Lymphocytes # 0.6 L (1.0-4.8) k/uL Sodium 125 L (137-145) mmol/L Chloride 85 L (98-107) mmol/L Carbon Dioxide 32 H (22-30) mmol/L Glucose 102 H (74-99) mg/dL AST 39 H (14-36) U/L Total Protein 5.7 L (6.3-8.2) g/dL Albumin 3.1 L (3.5-5.0) g/dL Assessment and Plan Plan: Assessment: #1. Hyponatremia secondary to SIADH. Sodium level up to 125 today. Status post 2 doses of Samsca. #2. Status post right ankle ORIF. #3. Benign hypertension. Currently controlled. #4. Hypomagnesemia secondary to diuretics. Maintained on Mag-Ox. Plan: Continue Lasix 40 mg twice daily. Continue salt tabs 1 g twice daily. Maintain 1200 mL fluid restriction. Encouraged oral intake. Repeat sodium level at 5 PM today. If sodium level drops, I will repeat dose of Samsca.
--- NOTE | 2017-10-01 09:22 | P.PN ---
Progress Note - Text The patient is doing well this morning with improved pain in her right ankle. On exam the pin sites appear clean and there is resolving swelling in her ankle. There is a Silvadene dressing over the medial aspect of the ankle. She is to continue daily dressing changes and pin site care as well as elevation of the leg to help with resolution of swelling. I am tentatively planning on taking her back to the operating room this Sunday for removal of the external fixator and definitive surgical fixation of her ankle fracture as long as her swelling has resolved to the point that there is wrinkling of the skin over the lateral malleolus.
--- NOTE | 2017-10-01 12:17 | P.PN ---
Subjective Patient is is doing well today. No events overnight. Objective - Vital Signs Vital signs: Vital Signs Temp 97.0 F L 10/01/17 09:00 Pulse 129 H 10/01/17 09:00 Resp 18 10/01/17 09:00 BP 115/71 10/01/17 09:00 Pulse Ox 94 L 10/01/17 09:00 Intake & Output 09/30/17 10/01/17 10/01/17 18:59 06:59 18:59 Intake Total 1330 Output Total 700 800 Balance 630 -800 Weight 102.5 kg Intake: IV 700 Magnesium Sulfate-D5w Pmx 200 1 gm In Dextrose/Water 1 100ml.bag @ 100 mls/hr IVPB Q1H ROBERT Rx#: [id number] Sodium Chloride 0.9% 500 500 ml @ 999 mls/hr IV .Q31M ONE Rx#:[id number] Oral 630 Output: Urine 700 800 Other: Voiding Method Indwelling Catheter Indwelling Catheter # Voids 300 - Exam General: The patient is awake and alert, in no distress Eye: there is normal conjunctiva bilaterally. Neck: The neck is supple, there is no JVD. Cardiovascular: Normal S1-S2, no S3-S4, no murmurs. Respiratory: Lungs clear to auscultation bilaterally Gastrointestinal: Abdomen is soft, nontender Musculoskeletal: There is no pedal edema. Large ankle external fixator on the right Neurological:. Speech is normal. Skin: Skin is warm and dry - Labs CBC & Chem 7: 10/01/17 06:08 10/01/17 06:08 Labs: Abnormal Lab Results - Last 24 Hours (Table) 10/01/17 10/01/17 Range/Units 06:08 06:08 RBC 3.56 L (3.80-5.40) m/uL Lymphocytes # 0.6 L (1.0-4.8) k/uL Sodium 125 L (137-145) mmol/L Chloride 85 L (98-107) mmol/L Carbon Dioxide 32 H (22-30) mmol/L Glucose 102 H (74-99) mg/dL AST 39 H (14-36) U/L Total Protein 5.7 L (6.3-8.2) g/dL Albumin 3.1 L (3.5-5.0) g/dL Assessment and Plan Assessment: 1. Profound hyponatremia, hypovolemic hyponatremia also worsened by a beer drinking. Patient was hydrated with IV fluids. nephrology following closely 2. Heavy alcohol abuse: Counseled extensively. We will continue CIWA protocol 3. Rhabdomyolysis 4. Mechanical fall: We will consult PT/OT 5. Right ankle dislocation: Seen and evaluated by orthopedic. Status post external fixator. 6. Urinary tract infection, started on IV ceftriaxone. Urine culture showed normal richie. Would finish 5 days of antibiotic. 7. Hypotension: Improved. Secondary to intravascular depletion. Improved. 8. GI and DVT prophylaxis ordered Plan to return to OR on Sunday to take the fixator out. We will continue current regimen otherwise. Repeat lab work in the morning.
[2017-10-01] MEDS: THIAMINE 100 MG TAB PO SCH ×2 (12:52→17:21)
[2017-10-01 14:30] LABS: T4, Free (Free Thyroxine) 1.58 ng/dL (0.78-2.19)
[2017-10-02] MEDS: HYDROcodone/APAP 5-325MG 1 EACH TAB PO PRN ×3 (01:27→23:24)
[2017-10-02 06:29] LABS: Anion Gap 10 mmol/L; Blood Urea Nitrogen 13 mg/dL (7-17); Calcium 9.2 mg/dL (8.4-10.2); Carbon Dioxide 33 mmol/L (22-30); Chloride 85 mmol/L (98-107); Glucose 104 mg/dL (74-99); Magnesium 1.3 mg/dL (1.6-2.3); Potassium 3.4 mmol/L (3.5-5.1); Sodium 128 mmol/L (137-145)
[2017-10-02] MEDS: PANTOPRAZOLE 40 MG TABLET PO SCH (06:44)
[2017-10-02] MEDS: ENOXAPARIN 40 MG/0.4 ML SYRINGE SQ SCH (08:20)
[2017-10-02] MEDS: cefTRIAXone IN SWFI 1,000 MG/10 ML SYRINGE IVP SCH (08:20)
[2017-10-02] MEDS: FUROSEMIDE 40 MG TAB PO SCH ×2 (08:20→17:18)
[2017-10-02] MEDS: METOPROLOL TARTRATE 12.5 MG TAB PO SCH ×2 (08:21→20:27)
[2017-10-02] MEDS: MAGNESIUM OXIDE 400 MG TAB PO SCH ×2 (08:21→20:27)
[2017-10-02] MEDS: SODIUM CHLORIDE TAB 1 GM TAB PO SCH ×2 (08:22→20:27)
--- NOTE | 2017-10-02 10:04 | P.PN ---
Subjective Progress Note Date: 10/02/17 Principal diagnosis: S/P ex fix for right ankle fracture Patient is seen at bedside this morning. She is postop day #4 from external fixation application for unstable bimalleolar ankle fracture. Her pain is well controlled and denies any new complaints. She denies numbness, tingling or calf pain. Review of systems is negative for fever, chills, chest pain, shortness of breath or other Objective - Vital Signs Vital signs: Vital Signs Temp 97.1 F L 10/02/17 08:33 Pulse 115 H 10/02/17 08:33 Resp 16 10/02/17 08:33 BP 118/69 10/02/17 08:33 Pulse Ox 92 L 10/02/17 08:33 Intake & Output 10/01/17 10/02/17 10/02/17 18:59 06:59 18:59 Intake Total 480 Output Total 1000 1300 Balance -520 -1300 Weight 101.5 kg Intake: Oral 480 Output: Urine 1000 1300 Uretheral (Silverman) 800 Other: Voiding Method Indwelling Catheter # Voids 0 - Exam Inspection reveals a benign surgical wounds at the pin sites. There is no active bleeding or drainage. No pressure ulcers or wounds. Swelling improved. Neurovascular status is intact throughout the lower extremity with motor and sensation fully intact. Calf is soft and nontender. 2+ dorsalis pedis pulse and less than 2 second cap refill is present. - Constitutional General appearance: Present: no acute distress - Psychiatric Psychiatric: Present: A&O x's 3, appropriate affect, intact judgment & insight - Labs CBC & Chem 7: 10/01/17 06:08 10/02/17 05:33 Labs: Abnormal Lab Results - Last 24 Hours (Table) 10/01/17 10/01/17 10/01/17 Range/Units 12:30 12:30 17:08 D-Dimer 2.70 H (<0.60) mg/L FEU Sodium 126 L (137-145) mmol/L Potassium (3.5-5.1) mmol/L Chloride (98-107) mmol/L Carbon Dioxide (22-30) mmol/L Glucose (74-99) mg/dL Magnesium (1.6-2.3) mg/dL TSH 5.620 H (0.465-4.680) mIU/L 10/02/17 Range/Units 05:33 D-Dimer (<0.60) mg/L FEU Sodium 128 L (137-145) mmol/L Potassium 3.4 L (3.5-5.1) mmol/L Chloride 85 L (98-107) mmol/L Carbon Dioxide 33 H (22-30) mmol/L Glucose 104 H (74-99) mg/dL Magnesium 1.3 L (1.6-2.3) mg/dL TSH (0.465-4.680) mIU/L Assessment and Plan (1) Closed right ankle fracture Narrative/Plan: She will continue with routine postop orthopedic protocol including pain management, wound care including daily dressing changes with silvadene and pin site care, elevation, non weightbearing, DVT prophylaxis and medical management. Plan is to proceed with ORIF of the right ankle this coming Sunday. Current Visit: Yes Status: Acute Priority: Medium Code(s): S82.891A - OTH FRACTURE OF RIGHT LOWER LEG, INIT FOR CLOS FX SNOMED Code(s): 67130440 Time with Patient: Less than 30
[2017-10-02] MEDS ORDERED: POTASSIUM CHLORIDE ER 20 MEQ TAB.ER PO STA (10:52)
--- NOTE | 2017-10-02 11:22 | P.PN ---
Subjective Patient is seen in follow-up for hyponatremia. Sodium level is up to 128 today. She did receive 2 doses of Samsca so far - last dose on September 30. She underwent right ankle surgery. Currently resting in bed. Oral intake is good. No vomiting or diarrhea. Denies chest pain or shortness of breath. Vital signs are stable. General: The patient appeared well nourished and normally developed. HEENT: Head exam is unremarkable. Neck is without jugular venous distension. LUNGS: Lungs are clear to auscultation and percussion. Breath sounds decreased. HEART: Rate and Rhythm are regular. First and second heart sounds normal. No murmurs, rubs or gallops. ABDOMEN: Abdominal exam reveals normal bowel sounds. Non-tender and non- distended. No evidence of peritonitis. EXTREMITITES: No clubbing, cyanosis, or edema. Objective - Vital Signs Vital signs: Vital Signs Temp 97.1 F L 10/02/17 08:33 Pulse 115 H 10/02/17 08:33 Resp 16 10/02/17 08:33 BP 118/69 10/02/17 08:33 Pulse Ox 92 L 10/02/17 08:33 Intake & Output 10/01/17 10/02/17 10/02/17 18:59 06:59 18:59 Intake Total 480 Output Total 1000 1300 Balance -520 -1300 Weight 101.5 kg Intake: Oral 480 Output: Urine 1000 1300 Uretheral (Silverman) 800 Other: Voiding Method Indwelling Catheter # Voids 0 - Labs CBC & Chem 7: 10/01/17 06:08 10/02/17 05:33 Labs: Abnormal Lab Results - Last 24 Hours (Table) 10/01/17 10/01/17 10/01/17 Range/Units 12:30 12:30 17:08 D-Dimer 2.70 H (<0.60) mg/L FEU Sodium 126 L (137-145) mmol/L Potassium (3.5-5.1) mmol/L Chloride (98-107) mmol/L Carbon Dioxide (22-30) mmol/L Glucose (74-99) mg/dL Magnesium (1.6-2.3) mg/dL TSH 5.620 H (0.465-4.680) mIU/L 10/02/17 Range/Units 05:33 D-Dimer (<0.60) mg/L FEU Sodium 128 L (137-145) mmol/L Potassium 3.4 L (3.5-5.1) mmol/L Chloride 85 L (98-107) mmol/L Carbon Dioxide 33 H (22-30) mmol/L Glucose 104 H (74-99) mg/dL Magnesium 1.3 L (1.6-2.3) mg/dL TSH (0.465-4.680) mIU/L Assessment and Plan Plan: Assessment: #1. Hyponatremia secondary to SIADH. Sodium level up to 128 today. Status post 2 doses of Samsca. #2. Status post right ankle ORIF. #3. Benign hypertension. Currently controlled. #4. Hypomagnesemia secondary to diuretics. Maintained on Mag-Ox. #5. Hypokalemia secondary to diuresis. Plan: Continue Lasix 40 mg twice daily. Continue salt tabs 1 g twice daily. Maintain 1200 mL fluid restriction. Encouraged oral intake. Replace magnesium. 3 g IV today. Replace potassium. 40 mg once today. Repeat electrolytes in the morning.
[2017-10-02] MEDS: MAGNESIUM SULFATE-D5W PMX 1 GM in DEXTROSE/WATER 1 100ML.BAG IVPB SCH ×3 (12:29→16:39)
[2017-10-02] MEDS: THIAMINE 100 MG TAB PO SCH ×2 (12:29→17:18)
--- NOTE | 2017-10-02 13:10 | P.PN ---
Subjective Patient is is doing well today. No events overnight. Objective - Vital Signs Vital signs: Vital Signs Temp 97.1 F L 10/02/17 08:33 Pulse 115 H 10/02/17 08:33 Resp 16 10/02/17 08:33 BP 118/69 10/02/17 08:33 Pulse Ox 92 L 10/02/17 08:33 Intake & Output 10/01/17 10/02/17 10/02/17 18:59 06:59 18:59 Intake Total 480 Output Total 1000 1300 1000 Balance -520 -1300 -1000 Weight 101.5 kg 101.5 kg Intake: Oral 480 Output: Urine 1000 1300 1000 Uretheral ([place]) 800 Other: Voiding Method Indwelling Catheter # Voids 0 - Exam General: The patient is awake and alert, in no distress Eye: there is normal conjunctiva bilaterally. Neck: The neck is supple, there is no JVD. Cardiovascular: Normal S1-S2, no S3-S4, no murmurs. Respiratory: Lungs clear to auscultation bilaterally Gastrointestinal: Abdomen is soft, nontender Musculoskeletal: There is no pedal edema. Large ankle external fixator on the right Neurological:. Speech is normal. Skin: Skin is warm and dry - Labs CBC & Chem 7: 10/01/17 06:08 10/02/17 05:33 Labs: Abnormal Lab Results - Last 24 Hours (Table) 10/01/17 10/01/17 10/02/17 Range/Units 12:30 17:08 05:33 Sodium 126 L 128 L (137-145) mmol/L Potassium 3.4 L (3.5-5.1) mmol/L Chloride 85 L (98-107) mmol/L Carbon Dioxide 33 H (22-30) mmol/L Glucose 104 H (74-99) mg/dL Magnesium 1.3 L (1.6-2.3) mg/dL TSH 5.620 H (0.465-4.680) mIU/L Assessment and Plan Assessment: 1. Profound hyponatremia, hypovolemic hyponatremia also worsened by a beer drinking. Patient was hydrated with IV fluids. nephrology following closely 2. Heavy alcohol abuse: Counseled extensively. We will continue CIWA protocol 3. Rhabdomyolysis 4. Mechanical fall: We will consult PT/OT 5. Right ankle dislocation: Seen and evaluated by orthopedic. Status post external fixator. 6. Urinary tract infection, started on IV ceftriaxone. Urine culture showed normal richie. Would finish 5 days of antibiotic. 7. Hypotension: Improved. Secondary to intravascular depletion. Improved. 8. GI and DVT prophylaxis ordered Plan to return to OR on Sunday to take the fixator out. We will continue current regimen otherwise. Repeat lab work in the morning.
[2017-10-03] MEDS: PANTOPRAZOLE 40 MG TABLET PO SCH (06:05)
[2017-10-03 06:10] LABS: Basophils % (A) 1 %; Eosinophils # (A) 0.2 k/uL (0-0.7); Eosinophils % (A) 6 %; HCT 32.7 % (34.0-46.0); HGB 11.2 gm/dL (11.4-16.0); Lymphocytes # (A) 0.6 k/uL (1.0-4.8); Lymphocytes % (A) 16 %; MCH 32.2 pg (25.0-35.0); MCHC 34.3 g/dL (31.0-37.0); Monocytes # (A) 0.3 k/uL (0-1.0); Monocytes % (A) 10 %; Neutrophils # (A) 2.2 k/uL (1.3-7.7); Neutrophils % (A) 64 %; Platelet Count 336 k/uL (150-450); RBC 3.47 m/uL (3.80-5.40); RDW 12.8 % (11.5-15.5); WBC 3.4 k/uL (3.8-10.6)
[2017-10-03 06:20] LABS: Anion Gap 10 mmol/L; Blood Urea Nitrogen 15 mg/dL (7-17); Calcium 9.2 mg/dL (8.4-10.2); Carbon Dioxide 35 mmol/L (22-30); Chloride 81 mmol/L (98-107); Glucose 106 mg/dL (74-99); Magnesium 1.6 mg/dL (1.6-2.3); Potassium 3.3 mmol/L (3.5-5.1); Sodium 126 mmol/L (137-145)
[2017-10-03] MEDS ORDERED: Potassium Replacement Protocol 1 EACH MISC MISCELLANE PRN (06:31)
[2017-10-03] MEDS ORDERED: POTASSIUM CHLORIDE ER 20 MEQ TAB.ER PO STA (06:31)
[2017-10-03] MEDS: HYDROcodone/APAP 5-325MG 1 EACH TAB PO PRN ×2 (09:30→22:41)
--- NOTE | 2017-10-03 10:31 | P.PN ---
Subjective Patient is seen in follow-up for hyponatremia. Sodium level is down to 126 today. She did receive 2 doses of Samsca so far - last dose on September 30. She underwent right ankle surgery. Currently resting in bed. Oral intake is good. No vomiting or diarrhea. Denies chest pain or shortness of breath. States she became quite anxious this morning but feeling better now. She feels a little constipated. She remains nonoliguric. Vital signs are stable. General: The patient appeared well nourished and normally developed. HEENT: Head exam is unremarkable. Neck is without jugular venous distension. LUNGS: Lungs are clear to auscultation and percussion. Breath sounds decreased. HEART: Rate and Rhythm are regular. First and second heart sounds normal. No murmurs, rubs or gallops. ABDOMEN: Abdominal exam reveals normal bowel sounds. Non-tender and non- distended. No evidence of peritonitis. EXTREMITITES: No clubbing, cyanosis, or edema. Objective - Vital Signs Vital signs: Vital Signs Temp 98 F 10/03/17 03:24 Pulse 83 10/03/17 03:24 Resp 16 10/03/17 03:24 BP 109/58 10/03/17 03:24 Pulse Ox 95 10/03/17 03:24 Intake & Output 10/02/17 10/03/17 10/03/17 18:59 06:59 18:59 Intake Total 780 236 Output Total 1700 1100 Balance -920 -1100 236 Weight 101.5 kg 99 kg Intake: Oral 780 236 Output: Urine 1700 1100 Other: Voiding Method Indwelling Catheter - Labs CBC & Chem 7: 10/03/17 05:45 10/03/17 05:45 Labs: Abnormal Lab Results - Last 24 Hours (Table) 10/03/17 10/03/17 Range/Units 05:45 05:45 WBC 3.4 L (3.8-10.6) k/uL RBC 3.47 L (3.80-5.40) m/uL Hgb 11.2 L (11.4-16.0) gm/dL Hct 32.7 L (34.0-46.0) % Lymphocytes # 0.6 L (1.0-4.8) k/uL Sodium 126 L (137-145) mmol/L Potassium 3.3 L (3.5-5.1) mmol/L Chloride 81 L (98-107) mmol/L Carbon Dioxide 35 H (22-30) mmol/L Glucose 106 H (74-99) mg/dL Assessment and Plan Plan: Assessment: #1. Hyponatremia secondary to SIADH. Sodium level 126 today. Status post 2 doses of Samsca. #2. Status post right ankle ORIF. #3. Benign hypertension. Currently controlled. #4. Hypomagnesemia secondary to diuretics. Maintained on Mag-Ox. #5. Hypokalemia secondary to diuresis. Plan: Continue Lasix 40 mg twice daily. Continue salt tabs 1 g twice daily. Maintain 1200 mL fluid restriction. Encouraged oral intake. Replace magnesium. 2 g IV today. Replace potassium. 40 mg once today. Samsca 15 mg once today. Recheck sodium level at 4 PM today. Repeat electrolytes in the morning.
[2017-10-03] MEDS ORDERED: TOLVAPTAN 15 MG 1/2 TABLET PO ONE (10:45)
[2017-10-03] MEDS ORDERED: TOLVAPTAN 30 MG TABLET PO ONE (10:45)
[2017-10-03] MEDS: cefTRIAXone IN SWFI 1,000 MG/10 ML SYRINGE IVP SCH (11:00)
[2017-10-03] MEDS: MAGNESIUM SULFATE-D5W PMX 1 GM in DEXTROSE/WATER 1 100ML.BAG IVPB SCH ×2 (11:10→17:32)
[2017-10-03] MEDS: ENOXAPARIN 40 MG/0.4 ML SYRINGE SQ SCH (11:12)
[2017-10-03] MEDS: FUROSEMIDE 40 MG TAB PO SCH ×2 (11:13→17:33)
[2017-10-03] MEDS: MAGNESIUM OXIDE 400 MG TAB PO SCH ×2 (11:13→21:02)
[2017-10-03] MEDS: METOPROLOL TARTRATE 12.5 MG TAB PO SCH ×2 (11:14→21:04)
[2017-10-03] MEDS: SODIUM CHLORIDE TAB 1 GM TAB PO SCH ×2 (11:14→21:04)
[2017-10-03] MEDS: LACTULOSE 20 GM/30 ML CUP PO SCH ×3 (11:55→21:04)
--- NOTE | 2017-10-03 16:22 | P.PN ---
Subjective Patient is is doing well today. No events overnight. Objective - Vital Signs Vital signs: Vital Signs Temp 97.0 F L 10/03/17 11:40 Pulse 97 10/03/17 11:40 Resp 18 10/03/17 11:40 BP 100/56 10/03/17 11:40 Pulse Ox 96 10/03/17 11:40 Intake & Output 10/02/17 10/03/17 10/03/17 18:59 06:59 18:59 Intake Total 780 354 Output Total 1700 1100 600 Balance -920 -1100 -246 Weight 101.5 kg 99 kg Intake: Oral 780 354 Output: Urine 1700 1100 600 Other: Voiding Method Indwelling Catheter Indwelling Catheter - Exam General: The patient is awake and alert, in no distress Eye: there is normal conjunctiva bilaterally. Neck: The neck is supple, there is no JVD. Cardiovascular: Normal S1-S2, no S3-S4, no murmurs. Respiratory: Lungs clear to auscultation bilaterally Gastrointestinal: Abdomen is soft, nontender Musculoskeletal: There is no pedal edema. Large ankle external fixator on the right Neurological:. Speech is normal. Skin: Skin is warm and dry - Labs CBC & Chem 7: 10/03/17 05:45 10/03/17 05:45 Labs: Abnormal Lab Results - Last 24 Hours (Table) 10/03/17 10/03/17 Range/Units 05:45 05:45 WBC 3.4 L (3.8-10.6) k/uL RBC 3.47 L (3.80-5.40) m/uL Hgb 11.2 L (11.4-16.0) gm/dL Hct 32.7 L (34.0-46.0) % Lymphocytes # 0.6 L (1.0-4.8) k/uL Sodium 126 L (137-145) mmol/L Potassium 3.3 L (3.5-5.1) mmol/L Chloride 81 L (98-107) mmol/L Carbon Dioxide 35 H (22-30) mmol/L Glucose 106 H (74-99) mg/dL Assessment and Plan Assessment: 1. Profound hyponatremia, hypovolemic hyponatremia also worsened by a beer drinking. Patient was hydrated with IV fluids. nephrology following closely 2. Heavy alcohol abuse: Counseled extensively. Not triggering on CIWA protocol 3. Rhabdomyolysis 4. Mechanical fall: We will consult PT/OT 5. Right ankle dislocation: Seen and evaluated by orthopedic. Status post external fixator. 6. Urinary tract infection, started on IV ceftriaxone. Urine culture showed normal richie. Would finish 5 days of antibiotic. 7. Hypotension: Improved. Secondary to intravascular depletion. Improved. 8. GI and DVT prophylaxis ordered Plan to return to OR on Sunday to take the fixator out. We will continue current regimen otherwise. Repeat lab work in the morning.
[2017-10-03] MEDS: THIAMINE 100 MG TAB PO SCH ×2 (17:32→17:33)
--- NOTE | 2017-10-03 19:43 | P.PN ---
Subjective Progress Note Date: 10/03/17 Principal diagnosis: S/P ex fix for right ankle fracture Patient is seen at bedside this morning. She is postop day #5 from external fixation application for unstable bimalleolar ankle fracture. Her pain is well controlled and denies any new complaints. She denies numbness, tingling or calf pain. Review of systems is negative for fever, chills, chest pain, shortness of breath or other Objective - Vital Signs Vital signs: Vital Signs Temp 97.0 F L 10/03/17 11:40 Pulse 90 10/03/17 16:55 Resp 18 10/03/17 16:55 BP 119/68 10/03/17 16:55 Pulse Ox 96 10/03/17 16:55 Intake & Output 10/03/17 10/03/17 10/04/17 06:59 18:59 06:59 Intake Total 534 Output Total 1100 600 Balance -1100 -66 Weight 99 kg Intake: Oral 534 Output: Urine 1100 600 Other: Voiding Method Indwelling Catheter Indwelling Catheter - Exam Inspection reveals a benign surgical wounds at the pin sites. There is no active bleeding or drainage. No pressure ulcers or wounds. Swelling stays improved. Neurovascular status is intact throughout the lower extremity with motor and sensation fully intact. Calf is soft and nontender. 2+ dorsalis pedis pulse and less than 2 second cap refill is present. - Constitutional General appearance: Present: no acute distress - Psychiatric Psychiatric: Present: A&O x's 3, appropriate affect, intact judgment & insight - Labs CBC & Chem 7: 10/03/17 05:45 10/03/17 16:07 Labs: Abnormal Lab Results - Last 24 Hours (Table) 10/03/17 10/03/17 10/03/17 Range/Units 05:45 05:45 16:07 WBC 3.4 L (3.8-10.6) k/uL RBC 3.47 L (3.80-5.40) m/uL Hgb 11.2 L (11.4-16.0) gm/dL Hct 32.7 L (34.0-46.0) % Lymphocytes # 0.6 L (1.0-4.8) k/uL Sodium 126 L 129 L (137-145) mmol/L Potassium 3.3 L (3.5-5.1) mmol/L Chloride 81 L (98-107) mmol/L Carbon Dioxide 35 H (22-30) mmol/L Glucose 106 H (74-99) mg/dL Assessment and Plan (1) Closed right ankle fracture Narrative/Plan: She will continue with routine postop orthopedic protocol including pain management, wound care including daily dressing changes with silvadene and pin site care, elevation, non weightbearing, DVT prophylaxis and medical management. Plan is to proceed with ORIF of the right ankle this coming Sunday. Current Visit: Yes Status: Acute Priority: Medium Code(s): S82.891A - OTH FRACTURE OF RIGHT LOWER LEG, INIT FOR CLOS FX SNOMED Code(s): 29601360 Time with Patient: Less than 30
[2017-10-03 20:23] LABS: Magnesium 1.9 mg/dL (1.6-2.3); Potassium 3.1 mmol/L (3.5-5.1)
[2017-10-03] MEDS: POTASSIUM CHLORIDE ER 20 MEQ TAB.ER PO SCH ×2 (21:03→22:38)
[2017-10-04] MEDS: PANTOPRAZOLE 40 MG TABLET PO SCH (06:01)
[2017-10-04 06:32] LABS: Basophils # (A) 0.1 k/uL (0-0.2); Basophils % (A) 1 %; Eosinophils # (A) 0.2 k/uL (0-0.7); Eosinophils % (A) 6 %; HCT 32.4 % (34.0-46.0); HGB 10.7 gm/dL (11.4-16.0); Lymphocytes # (A) 0.4 k/uL (1.0-4.8); Lymphocytes % (A) 10 %; MCH 31.3 pg (25.0-35.0); MCV 94.9 fL (80.0-100.0); Mean Platelet Volume 6.7; Monocytes # (A) 0.3 k/uL (0-1.0); Monocytes % (A) 9 %; Neutrophils # (A) 2.6 k/uL (1.3-7.7); Neutrophils % (A) 70 %; Platelet Count 339 k/uL (150-450); RBC 3.41 m/uL (3.80-5.40); RDW 12.8 % (11.5-15.5); WBC 3.7 k/uL (3.8-10.6)
[2017-10-04 06:46] LABS: Anion Gap 11 mmol/L; Blood Urea Nitrogen 14 mg/dL (7-17); Calcium 9.4 mg/dL (8.4-10.2); Carbon Dioxide 32 mmol/L (22-30); Chloride 88 mmol/L (98-107); Glucose 102 mg/dL (74-99); Magnesium 1.6 mg/dL (1.6-2.3); Potassium 3.5 mmol/L (3.5-5.1); Sodium 131 mmol/L (137-145)
[2017-10-04] MEDS ORDERED: POTASSIUM CHLORIDE ER 20 MEQ TAB.ER PO STA (09:59)
--- NOTE | 2017-10-04 09:59 | P.PN ---
Subjective Patient is seen in follow-up for hyponatremia. Sodium level is 131 today. She did receive 3 doses of Samsca so far - last dose on October 03. She underwent right ankle surgery. Currently resting in bed. Oral intake is good. No vomiting or diarrhea. Denies chest pain or shortness of breath. GFR at baseline. Vital signs are stable. General: The patient appeared well nourished and normally developed. HEENT: Head exam is unremarkable. Neck is without jugular venous distension. LUNGS: Lungs are clear to auscultation and percussion. Breath sounds decreased. HEART: Rate and Rhythm are regular. First and second heart sounds normal. No murmurs, rubs or gallops. ABDOMEN: Abdominal exam reveals normal bowel sounds. Non-tender and non- distended. No evidence of peritonitis. EXTREMITITES: No clubbing, cyanosis, or edema. Objective - Vital Signs Vital signs: Vital Signs Temp 98.6 F 10/04/17 08:00 Pulse 94 10/04/17 08:00 Resp 16 10/04/17 08:00 BP 112/68 10/04/17 08:00 Pulse Ox 96 10/04/17 08:00 Intake & Output 10/03/17 10/04/17 10/04/17 18:59 06:59 18:59 Intake Total 534 100 240 Output Total 600 300 Balance -66 -200 240 Weight 101 kg Intake: Intake, IV Titration 100 Amount Magnesium Sulfate-D5w Pmx 100 1 gm In Dextrose/Water 1 100ml.bag @ 100 mls/hr IVPB Q1H [facility] Rx#: [id number] Oral 534 240 Output: Urine 600 300 Other: Voiding Method Indwelling Catheter Indwelling Catheter - Labs CBC & Chem 7: 10/04/17 06:08 10/04/17 06:08 Labs: Abnormal Lab Results - Last 24 Hours (Table) 10/03/17 10/03/17 10/04/17 Range/Units 16:07 19:52 06:08 WBC 3.7 L (3.8-10.6) k/uL RBC 3.41 L (3.80-5.40) m/uL Hgb 10.7 L (11.4-16.0) gm/dL Hct 32.4 L (34.0-46.0) % Lymphocytes # 0.4 L (1.0-4.8) k/uL Sodium 129 L (137-145) mmol/L Potassium 3.1 L (3.5-5.1) mmol/L Chloride (98-107) mmol/L Carbon Dioxide (22-30) mmol/L Glucose (74-99) mg/dL 10/04/17 Range/Units 06:08 WBC (3.8-10.6) k/uL RBC (3.80-5.40) m/uL Hgb (11.4-16.0) gm/dL Hct (34.0-46.0) % Lymphocytes # (1.0-4.8) k/uL Sodium 131 L (137-145) mmol/L Potassium (3.5-5.1) mmol/L Chloride 88 L (98-107) mmol/L Carbon Dioxide 32 H (22-30) mmol/L Glucose 102 H (74-99) mg/dL Assessment and Plan Plan: Assessment: #1. Hyponatremia secondary to SIADH. Sodium level 131 today. Status post 3 doses of Samsca. #2. Status post right ankle ORIF. #3. Benign hypertension. Currently controlled. #4. Hypomagnesemia secondary to diuretics. Maintained on Mag-Ox. #5. Hypokalemia secondary to diuresis. Plan: Continue Lasix 40 mg twice daily. Increase SolTabs to 3 times daily. Maintain 1200 mL fluid restriction. Encouraged oral intake. Replace magnesium. 2 g IV today. Replace potassium. 40 mg once today. Repeat electrolytes in the morning.
[2017-10-04] MEDS: ENOXAPARIN 40 MG/0.4 ML SYRINGE SQ SCH (10:21)
[2017-10-04] MEDS: cefTRIAXone IN SWFI 1,000 MG/10 ML SYRINGE IVP SCH ×2 (10:21→15:55)
[2017-10-04] MEDS: LACTULOSE 20 GM/30 ML CUP PO SCH ×2 (10:22→15:57)
[2017-10-04] MEDS: FUROSEMIDE 40 MG TAB PO SCH ×2 (10:22→15:57)
[2017-10-04] MEDS: MAGNESIUM OXIDE 400 MG TAB PO SCH ×2 (10:23→19:51)
[2017-10-04] MEDS: METOPROLOL TARTRATE 12.5 MG TAB PO SCH ×2 (10:23→19:52)
--- NOTE | 2017-10-04 13:19 | P.PN ---
Subjective Patient is is doing well today. No events overnight. Objective - Vital Signs Vital signs: Vital Signs Temp 96.1 F L 10/04/17 11:23 Pulse 89 10/04/17 11:23 Resp 16 10/04/17 11:23 BP 116/57 10/04/17 11:23 Pulse Ox 94 L 10/04/17 11:23 Intake & Output 10/03/17 10/04/17 10/04/17 18:59 06:59 18:59 Intake Total 534 100 476 Output Total 600 300 Balance -66 -200 476 Weight 101 kg 101 kg Intake: Intake, IV Titration 100 Amount Magnesium Sulfate-D5w Pmx 100 1 gm In Dextrose/Water 1 100ml.bag @ 100 mls/hr IVPB Q1H [facility] Rx#: [id number] Oral 534 476 Output: Urine 600 300 Other: Voiding Method Indwelling Catheter Indwelling Catheter Indwelling Catheter # Bowel Movements 1 - Exam General: The patient is awake and alert, in no distress Eye: there is normal conjunctiva bilaterally. Neck: The neck is supple, there is no JVD. Cardiovascular: Normal S1-S2, no S3-S4, no murmurs. Respiratory: Lungs clear to auscultation bilaterally Gastrointestinal: Abdomen is soft, nontender Musculoskeletal: There is no pedal edema. Large ankle external fixator on the right Neurological:. Speech is normal. Skin: Skin is warm and dry - Labs CBC & Chem 7: 10/04/17 06:08 10/04/17 06:08 Labs: Abnormal Lab Results - Last 24 Hours (Table) 10/03/17 10/03/17 10/04/17 Range/Units 16:07 19:52 06:08 WBC 3.7 L (3.8-10.6) k/uL RBC 3.41 L (3.80-5.40) m/uL Hgb 10.7 L (11.4-16.0) gm/dL Hct 32.4 L (34.0-46.0) % Lymphocytes # 0.4 L (1.0-4.8) k/uL Sodium 129 L (137-145) mmol/L Potassium 3.1 L (3.5-5.1) mmol/L Chloride (98-107) mmol/L Carbon Dioxide (22-30) mmol/L Glucose (74-99) mg/dL 10/04/17 Range/Units 06:08 WBC (3.8-10.6) k/uL RBC (3.80-5.40) m/uL Hgb (11.4-16.0) gm/dL Hct (34.0-46.0) % Lymphocytes # (1.0-4.8) k/uL Sodium 131 L (137-145) mmol/L Potassium (3.5-5.1) mmol/L Chloride 88 L (98-107) mmol/L Carbon Dioxide 32 H (22-30) mmol/L Glucose 102 H (74-99) mg/dL Assessment and Plan Assessment: 1. Profound hyponatremia, hypovolemic hyponatremia also worsened by a beer drinking. Patient was hydrated with IV fluids. nephrology following closely 2. Heavy alcohol abuse: Counseled extensively. Not triggering on CIWA protocol 3. Rhabdomyolysis 4. Mechanical fall: We will consult PT/OT 5. Right ankle dislocation: Seen and evaluated by orthopedic. Status post external fixator. 6. Urinary tract infection, started on IV ceftriaxone. Urine culture showed normal richie. Would finish 5 days of antibiotic. 7. Hypotension: Improved. Secondary to intravascular depletion. Improved. 8. GI and DVT prophylaxis ordered Plan to return to OR on Sunday or Sunday to take the fixator out. We will continue current regimen otherwise. Repeat lab work in the morning.
[2017-10-04] MEDS: THIAMINE 100 MG TAB PO SCH ×2 (15:57→15:58)
[2017-10-04] MEDS: MAGNESIUM SULFATE-D5W PMX 1 GM in DEXTROSE/WATER 1 100ML.BAG IVPB SCH ×2 (15:58→18:30)
[2017-10-04] MEDS: SODIUM CHLORIDE TAB 1 GM TAB PO SCH ×3 (15:58→19:52)
--- NOTE | 2017-10-04 17:46 | P.PN ---
Progress Note - Text The patient continues to improve. She has no pain in her ankle. On examination the external fixator is in place with clean pin sites. There was wrinkling of the skin over the lateral malleolus and resolving swelling. We will plan on surgery this coming Sunday to remove the external fixator and perform definitive fixation of the fibula fracture. She is to continue strict nonweightbearing on her leg until that time.
[2017-10-05] MEDS: PANTOPRAZOLE 40 MG TABLET PO SCH (06:32)
[2017-10-05 07:00] LABS: Basophils # (A) 0.1 k/uL (0-0.2); Basophils % (A) 1 %; Eosinophils # (A) 0.2 k/uL (0-0.7); Eosinophils % (A) 5 %; HCT 32.5 % (34.0-46.0); HGB 11.1 gm/dL (11.4-16.0); Lymphocytes # (A) 0.4 k/uL (1.0-4.8); Lymphocytes % (A) 9 %; MCH 32.8 pg (25.0-35.0); MCHC 34.2 g/dL (31.0-37.0); Mean Platelet Volume 6.7; Monocytes # (A) 0.3 k/uL (0-1.0); Monocytes % (A) 8 %; Neutrophils # (A) 3.1 k/uL (1.3-7.7); Neutrophils % (A) 75 %; Platelet Count 342 k/uL (150-450); RBC 3.39 m/uL (3.80-5.40); WBC 4.1 k/uL (3.8-10.6)
[2017-10-05 07:03] LABS: Anion Gap 11 mmol/L; Blood Urea Nitrogen 13 mg/dL (7-17); Calcium 9.3 mg/dL (8.4-10.2); Carbon Dioxide 32 mmol/L (22-30); Chloride 89 mmol/L (98-107); Glucose 100 mg/dL (74-99); Magnesium 1.5 mg/dL (1.6-2.3); Potassium 3.4 mmol/L (3.5-5.1); Sodium 132 mmol/L (137-145)
[2017-10-05] MEDS ORDERED: POTASSIUM CHLORIDE ER 20 MEQ TAB.ER PO STA (07:43)
--- NOTE | 2017-10-05 08:27 | P.PN ---
Subjective Patient is seen in follow-up for hyponatremia. Sodium level is 133 today. She did receive 3 doses of Samsca so far - last dose on October 03. She underwent right ankle surgery. Currently resting in bed. Oral intake is good. No vomiting or diarrhea. Denies chest pain or shortness of breath. GFR at baseline. She was feeling constipated but did have a bowel movement. Vital signs are stable. General: The patient appeared well nourished and normally developed. HEENT: Head exam is unremarkable. Neck is without jugular venous distension. LUNGS: Lungs are clear to auscultation and percussion. Breath sounds decreased. HEART: Rate and Rhythm are regular. First and second heart sounds normal. No murmurs, rubs or gallops. ABDOMEN: Abdominal exam reveals normal bowel sounds. Non-tender and non- distended. No evidence of peritonitis. EXTREMITITES: No clubbing, cyanosis, or edema. Objective - Vital Signs Vital signs: Vital Signs Temp 97.5 F L 10/05/17 08:00 Pulse 104 H 10/05/17 08:00 Resp 20 10/05/17 08:00 BP 111/67 10/05/17 08:00 Pulse Ox 94 L 10/05/17 08:00 Intake & Output 10/04/17 10/05/17 10/05/17 18:59 06:59 18:59 Intake Total 476 Output Total 450 Balance 476 -450 Weight 101 kg 100.1 kg Intake: Oral 476 Output: Urine 450 Other: Voiding Method Indwelling Catheter Indwelling Catheter # Voids 1 # Bowel Movements 1 1 - Labs CBC & Chem 7: 10/05/17 06:17 10/05/17 06:17 Labs: Abnormal Lab Results - Last 24 Hours (Table) 10/05/17 10/05/17 Range/Units 06:17 06:17 RBC 3.39 L (3.80-5.40) m/uL Hgb 11.1 L (11.4-16.0) gm/dL Hct 32.5 L (34.0-46.0) % Lymphocytes # 0.4 L (1.0-4.8) k/uL Sodium 132 L (137-145) mmol/L Potassium 3.4 L (3.5-5.1) mmol/L Chloride 89 L (98-107) mmol/L Carbon Dioxide 32 H (22-30) mmol/L Glucose 100 H (74-99) mg/dL Phosphorus 5.0 H (2.5-4.5) mg/dL Magnesium 1.5 L (1.6-2.3) mg/dL Assessment and Plan Plan: Assessment: #1. Hyponatremia secondary to SIADH. Sodium level 132 today. Status post 3 doses of Samsca. #2. Status post right ankle ORIF. #3. Benign hypertension. Currently controlled. #4. Hypomagnesemia secondary to diuretics. Maintained on Mag-Ox. #5. Hypokalemia secondary to diuresis. Plan: Continue Lasix 40 mg twice daily. Maintain salt tabs 3 times daily. Maintain 1200 mL fluid restriction. Encouraged oral intake. Replace magnesium. 2 g IV today. Replace potassium. 40 mg once today. Repeat electrolytes in the morning.
[2017-10-05] MEDS: MAGNESIUM SULFATE-D5W PMX 1 GM in DEXTROSE/WATER 1 100ML.BAG IVPB SCH ×2 (09:11→10:34)
[2017-10-05] MEDS: FUROSEMIDE 40 MG TAB PO SCH ×2 (09:41→16:36)
[2017-10-05] MEDS: ENOXAPARIN 40 MG/0.4 ML SYRINGE SQ SCH (09:41)
[2017-10-05] MEDS: METOPROLOL TARTRATE 12.5 MG TAB PO SCH ×2 (09:42→20:39)
[2017-10-05] MEDS: MAGNESIUM OXIDE 400 MG TAB PO SCH ×2 (09:42→20:39)
[2017-10-05] MEDS: SODIUM CHLORIDE TAB 1 GM TAB PO SCH ×3 (09:42→20:39)
[2017-10-05] MEDS: cefTRIAXone IN SWFI 1,000 MG/10 ML SYRINGE IVP SCH (09:47)
[2017-10-05] MEDS: THIAMINE 100 MG TAB PO SCH ×2 (12:08→19:47)
--- NOTE | 2017-10-05 13:38 | P.PN ---
Subjective Progress Note Date: 10/05/17 This is a 62-year-old female with past medical history significant for heavy alcohol abuse who presented to the hospital after she had a mechanical fall and was found on the ground for approximately 10-12 hours. Patient was evaluated in the emergency room and was complaining of right ankle pain. She was right ankle dislocation status post reduction in the emergency room. Patient was also found to have significant electrolyte derangement and profound hyponatremia. Her mentation was acceptable as patient remained awake and alert and oriented despite profound hyponatremia. There was no seizure documented. Patient is being hydrated with IV fluids. She was also started on antibiotic to cover her for underlying UTI. 10/05/2017 patient is scheduled for orthopedic surgery on Sunday for removal of the external fixator and fixation of the fibula fracture. Patient's sodium level has improved to 132. Nephrology is following. Patient has no new complaints. Objective - Vital Signs Vital signs: Vital Signs Temp 97.7 F 10/05/17 11:23 Pulse 91 10/05/17 11:23 Resp 20 10/05/17 11:23 BP 107/57 10/05/17 11:23 Pulse Ox 94 L 10/05/17 11:23 Intake & Output 10/04/17 10/05/17 10/05/17 18:59 06:59 18:59 Intake Total 476 620 Output Total 450 Balance 476 -450 620 Weight 101 kg 100.1 kg Intake: Intake, IV Titration 220 Amount Magnesium Sulfate-D5w Pmx 200 1 gm In Dextrose/Water 1 100ml.bag @ 100 mls/hr IVPB Q1H [facility] Rx#: [id number] Sodium Chloride 0.9% 1, 20 000 ml As IV .STK-[facility] ONE Rx#:[id number] Oral 476 400 Output: Urine 450 Other: Voiding Method Indwelling Catheter Indwelling Catheter Indwelling Catheter # Voids 1 # Bowel Movements 1 1 - Exam Head normocephalic Neck supple Lungs clear to auscultation bilaterally no wheezing or crackles Heart regular rate and rhythm S1-S2, no rub or gallop Abdomen is soft nontender nondistended positive bowel sounds no hepatosplenomegaly Extremities right leg and fixator Neuro alert and orientated to 3 - Labs CBC & Chem 7: 10/05/17 06:17 10/05/17 06:17 Labs: Abnormal Lab Results - Last 24 Hours (Table) 10/05/17 10/05/17 Range/Units 06:17 06:17 RBC 3.39 L (3.80-5.40) m/uL Hgb 11.1 L (11.4-16.0) gm/dL Hct 32.5 L (34.0-46.0) % Lymphocytes # 0.4 L (1.0-4.8) k/uL Sodium 132 L (137-145) mmol/L Potassium 3.4 L (3.5-5.1) mmol/L Chloride 89 L (98-107) mmol/L Carbon Dioxide 32 H (22-30) mmol/L Glucose 100 H (74-99) mg/dL Phosphorus 5.0 H (2.5-4.5) mg/dL Magnesium 1.5 L (1.6-2.3) mg/dL Assessment and Plan Assessment: 1. 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 Nephrology is following. Sodium improving at 132 today. Status post 3 doses of Samsca. Continue fluid restrictions 2. Heavy alcohol abuse: Counseled extensively. Not triggering on CIWA protocol 3. Rhabdomyolysis 4. Mechanical fall: We will consult PT/OT 5. Right fibula fracture: Seen and evaluated by orthopedic. Patient scheduled for surgery tomorrow to remove fixator 6 fibular fracture 6. Urinary tract infection, started on IV ceftriaxone. Urine culture showed normal richie. Would finish 5 days of antibiotic. 7. Hypotension: Improved. Secondary to intravascular depletion. Improved. 8. GI and DVT prophylaxis ordered 9. Hypomagnesemia and hypokalemia patient receiving supplements. I performed an examination of the patient and discussed their management with the physician Stained Glass Joiner. I have reviewed the Physician Stained Glass Joiner's notes and agree with the documented findings and plan of care
[2017-10-05 13:49] LABS: Potassium 3.8 mmol/L (3.5-5.1)
--- NOTE | 2017-10-05 14:45 | P.PN ---
Subjective Progress Note Date: 10/05/17 Principal diagnosis: S/P ex fix for right ankle fracture Patient is seen at bedside this morning. She is postop day #6 from external fixation application for unstable bimalleolar ankle fracture. Her pain is well controlled and denies any new complaints. She denies numbness, tingling or calf pain. Review of systems is negative for fever, chills, chest pain, shortness of breath or other Objective - Vital Signs Vital signs: Vital Signs Temp 97.7 F 10/05/17 11:23 Pulse 91 10/05/17 11:23 Resp 20 10/05/17 11:23 BP 107/57 10/05/17 11:23 Pulse Ox 94 L 10/05/17 11:23 Intake & Output 10/04/17 10/05/17 10/05/17 18:59 06:59 18:59 Intake Total 476 620 Output Total 450 Balance 476 -450 620 Weight 101 kg 100.1 kg Intake: Intake, IV Titration 220 Amount Magnesium Sulfate-D5w Pmx 200 1 gm In Dextrose/Water 1 100ml.bag @ 100 mls/hr IVPB Q1H [facility] Rx#: [id number] Sodium Chloride 0.9% 1, 20 000 ml As IV .[facility] Rx#:[id number] Oral 476 400 Output: Urine 450 Other: Voiding Method Indwelling Catheter Indwelling Catheter Indwelling Catheter # Voids 1 # Bowel Movements 1 1 - Exam Inspection reveals a benign surgical wounds at the pin sites. There is no active bleeding or drainage. No pressure ulcers or wounds. Swelling stays improved. Neurovascular status is intact throughout the lower extremity with motor and sensation fully intact. Calf is soft and nontender. 2+ dorsalis pedis pulse and less than 2 second cap refill is present. - Constitutional General appearance: Present: no acute distress - Psychiatric Psychiatric: Present: A&O x's 3, appropriate affect, intact judgment & insight - Labs CBC & Chem 7: 10/05/17 06:17 10/05/17 13:12 Labs: Abnormal Lab Results - Last 24 Hours (Table) 10/05/17 10/05/17 Range/Units 06:17 06:17 RBC 3.39 L (3.80-5.40) m/uL Hgb 11.1 L (11.4-16.0) gm/dL Hct 32.5 L (34.0-46.0) % Lymphocytes # 0.4 L (1.0-4.8) k/uL Sodium 132 L (137-145) mmol/L Potassium 3.4 L (3.5-5.1) mmol/L Chloride 89 L (98-107) mmol/L Carbon Dioxide 32 H (22-30) mmol/L Glucose 100 H (74-99) mg/dL Phosphorus 5.0 H (2.5-4.5) mg/dL Magnesium 1.5 L (1.6-2.3) mg/dL Assessment and Plan (1) Closed right ankle fracture Narrative/Plan: She will continue with routine postop orthopedic protocol including pain management, wound care including daily dressing changes with silvadene and pin site care, elevation, non weightbearing, DVT prophylaxis and medical management. Plan is to proceed with ORIF of the right ankle tomorrow-Sunday. She is NPO after midnight. Current Visit: Yes Status: Acute Priority: Medium Code(s): S82.891A - OTH FRACTURE OF RIGHT LOWER LEG, INIT FOR CLOS FX SNOMED Code(s): 28343795 Time with Patient: Less than 30
[2017-10-05] MEDS ORDERED: Potassium Replacement Protocol 1 EACH MISC MISCELLANE PRN (16:32)
[2017-10-05] MEDS ORDERED: POTASSIUM CHLORIDE ER 20 MEQ TAB.ER PO SCH (17:00)
[2017-10-06] MEDS: PANTOPRAZOLE 40 MG TABLET PO SCH (05:48)
[2017-10-06 06:08] LABS: Basophils % (A) 1 %; Eosinophils # (A) 0.3 k/uL (0-0.7); Eosinophils % (A) 7 %; HCT 33.1 % (34.0-46.0); HGB 10.9 gm/dL (11.4-16.0); Lymphocytes # (A) 0.4 k/uL (1.0-4.8); Lymphocytes % (A) 12 %; MCH 31.1 pg (25.0-35.0); MCHC 32.8 g/dL (31.0-37.0); Mean Platelet Volume 7.2; Monocytes # (A) 0.3 k/uL (0-1.0); Monocytes % (A) 7 %; Neutrophils # (A) 2.5 k/uL (1.3-7.7); Neutrophils % (A) 70 %; Platelet Count 315 k/uL (150-450); RBC 3.49 m/uL (3.80-5.40); RDW 12.9 % (11.5-15.5); WBC 3.6 k/uL (3.8-10.6)
[2017-10-06 06:33] LABS: Anion Gap 8 mmol/L; Blood Urea Nitrogen 15 mg/dL (7-17); Carbon Dioxide 29 mmol/L (22-30); Chloride 88 mmol/L (98-107); Glucose 101 mg/dL (74-99); Magnesium 1.5 mg/dL (1.6-2.3); Potassium 3.8 mmol/L (3.5-5.1); Sodium 125 mmol/L (137-145)
[2017-10-06] MEDS: ENOXAPARIN 40 MG/0.4 ML SYRINGE SQ SCH (08:46)
[2017-10-06] MEDS: METOPROLOL TARTRATE 12.5 MG TAB PO SCH ×2 (08:51→08:59)
[2017-10-06] MEDS: FUROSEMIDE 40 MG TAB PO SCH ×2 (08:52→08:59)
[2017-10-06] MEDS ORDERED: methylPREDNISolone SOD SUCCI 125 MG/2 ML VIAL IV STA (09:14)
[2017-10-06] MEDS: diphenhydrAMINE 25 MG CAP PO PRN ×3 (09:20→20:47)
[2017-10-06] MEDS ORDERED: SUCCINYLCHOLINE CHLORIDE 100 MG/5 ML SYR IV ONE (10:30)
[2017-10-06] MEDS ORDERED: LIDOCAINE 2%-EPI 1:100,000 20 ML VIAL ONE (10:30)
[2017-10-06] MEDS ORDERED: HYDROmorphone (PF) 1 MG/ML ONE (10:30)
[2017-10-06] MEDS ORDERED: PHENYLEPHRINE-0.9% NACL SYG 1 MG/10 ML SYRINGE ONE (10:30)
[2017-10-06] MEDS ORDERED: PROPOFOL 10 MG/ML 20 ML VIAL IV ONE (10:30)
[2017-10-06] MEDS ORDERED: fentaNYL (PF) 50 MCG/ML 2 ML AMP ONE (10:30)
[2017-10-06] MEDS ORDERED: LIDOCAINE 1% INJ 10MG/ML (20 ML MDV) ONE (10:30)
[2017-10-06] MEDS ORDERED: ePHEDrine SULFATE/0.9% NACL/PF 50 MG/5 ML SYRINGE IV ONE (10:30)
[2017-10-06] MEDS ORDERED: MIDAZOLAM 2 MG/2 ML VIAL ONE (10:30)
[2017-10-06] MEDS ORDERED: IV FLUID CONTINUATION 1,000 ML IV ONE (10:30)
[2017-10-06] MEDS ORDERED: ROPIVACAINE 5 MG/ML 30 ML VIAL ONE (10:30)
--- NOTE | 2017-10-06 12:42 | FL ---
FLUOROSCOPY 2.19 minutes of fluoroscopy time were utilized during internal fixation of the right ankle. 2 images document the procedure.
--- NOTE | 2017-10-06 13:12 | P.OP ---
Date of Procedure: 10/06/17 Preoperative Diagnosis: 1. Closed right ankle fracture dislocation, with impending open wound and skin at risk over the medial malleolus 2. Morbid obesity with BMI 44.6 3. Chronic alcohol abuse 4. Severe hyponatremia Postoperative Diagnosis: Same Procedure(s) Performed: 1. Open reduction and internal fixation right lateral malleolus fracture 2. Removal of ankle spanning external fixator, right ankle 3. Manual application of stress by physician for radiography, right ankle 4. Application of short leg splint by physician, right ankle Anesthesia: GETA Surgeon: Darryl Ruiz Estimated Blood Loss (ml): 10 IV fluids (ml): 800 Pathology: none sent Condition: stable Disposition: PACU Indications for Procedure: The patient is a 62-year-old female with a medical history significant for chronic alcohol abuse and morbid obesity. Over a week ago she sustained a fall resulting in an ankle injury. She was down for 10 hours with her ankle dislocated before her brought her found her. She was brought to the emergency department where closed reduction was performed. The patient was admitted to internal medicine in the ICU for severe hyponatremia. The patient's ankle was grossly unstable and subluxed in the splint. She required application of an ankle spanning external fixator last Sunday to allow for resolution of soft tissue swelling and monitoring for medial ankle wound. She did well this week with resolution of her swelling and healing of the wound over the medial ankle. Was my recommendation to take her to the operating room to remove the external fixator and perform an open reduction internal fixation of the ankle fracture. We discussed potential risks and complications of surgery including but not limited to risks of anesthesia, risk of superficial infection, risk of deep infection, risk of delayed wound healing, risk of intraoperative fracture, risk of postoperative fracture, risk of fracture nonunion, risk of fracture malunion, risk of symptomatically hardware, risk of damage to local blood vessels or nerves, risk of chronic pain, risk of chronic swelling, risk of DVT, risk of PE, risk of postherpetic arthritis, risk of symptomatically hardware, risk of need for further surgery, risk of generalized to satisfaction of surgery , and possibly loss of life or limb. The patient understands that she is at a much higher risk of having a complication due to her morbid obesity and alcohol abuse. She provided her verbal and written consent to go forward with surgery. Description of Procedure: The patient was identified in preoperative holding and the correct right leg was marked with my initials. I reviewed the consent form with the patient and her brother. All of their questions were answered. The patient was then brought back to the operating room by anesthesia. She was positioned on the OR table and a general anesthetic and preoperative antibiotics were administered. A bump was placed under the right buttock. A tourniquet was applied to the proximal aspect of the right leg. The left leg was secured to the table with foam and tape. A timeout was then performed identifying the correct patient, operative extremity, and procedure. Following the timeout the external fixator was removed. After the external fixator was removed the leg was prepped and draped in the standard sterile fashion. The leg was then elevated, exsanguinated with an Esmarch bandage, and the tourniquet was inflated to 250 mmHg. I began by outlining an incision for a lateral approach to the distal fibula. Skin incision was made with a 15 blade scalpel. Dissection was carried down carefully to the subcutaneous tissue with tenotomy scissors. The periosteum and fascia over the lateral malleolus was incised longitudinally in line with the skin incision. The fracture site was then exposed and circumferentially debrided. The distal fibular fragment was grossly unstable and stripped of most of its soft tissue attachments. The fracture was gently teased into place and clamped with a [id number] reduction clamp. Visually the fracture appeared to be anatomically reduced. The reduction of the fracture was confirmed with fluoroscopy. The fibula appeared to be anatomically reduced and out to length. I then placed a 2.0 mm lag screw across the fracture site. A 2.0 mm drill bit was used in the lateral cortex of the distal fragment and a 1.5 mm drill bit was used to create a threaded hole in the medial cortex the proximal shaft. A fully threaded 2.0 mm lag screw was placed generating excellent compression across the fracture site. After the lag screw been placed was able to remove the clamp and the reduction held. I initially attempted to place a precontoured plate over the fibula but due to the patient' s anatomy the plate would not fit. I then contoured a 12 hole one third tubular plate to fit the patient's anatomy. The distal portion of the plate was contoured to sit over the posterior lateral border of the fibula and the proximal portion of the plate was contoured to fit along the lateral cortex of the fibula. Once the plate was adequately contoured a 3.5 mm screw was placed just proximal to the fracture to bring the plate down to bone. I then placed a second 3.5 mm nonlocking screw in the most proximal hole of the plate centering it on the fibula. I then proceeded to place three 4.0 millimeter cancellus screws through the distal 3 holes of the plate into the distal fragment. Due to the patient's history of all call abuse and morbid obesity I also elected to place 3 syndesmotic screws to allow for increased bony fixation. I then placed an additional 2 nonlocking screws proximal to the syndesmotic screws. Final fluoroscopic imaging was then taken. On the mortise view the fibula appeared to be out to length and the talus was reduced within the ankle mortise. I performed a manual external rotation stress x-ray. With the ankle and a mortise view when I applied external rotation force there was no widening of the incisor a or medial clear space. I interpreted this as a stable ankle. The wounds were then copiously irrigated. The fascia and periosteum was closed with a running 0 Vicryl. The deep subcu was reapproximated using 2-0 Vicryl. The skin was closed with 3-0 nylon horizontal mattress stitches. Brown stereo stretchy strips were placed between each stitch. The stab incision medially from the large pelvic reduction clamp was closed with a single 3-0 nylon. Once all wounds were closed I verified that the instrument, sponge, and sharp counts were correct. The pin sites and the external fixators were gently debrided cleaned and a sterile dressing was applied. I then placed a well-padded bulky Pena splint with the ankle at neutral. The patient was awoken from her anesthetic, transferred from the or table to the [facility] [place], and brought to PACU having tolerated the procedure well. Plan: The patient is to remain strictly nonweightbearing on her right leg. The splint is to remain on at all times. She is to aggressively elevate the leg as much as possible to help with resolution of soft tissue swelling. She is okay to discharge from an orthopedic standpoint. She will follow-up in the office with me in 2 weeks for splint removal, soft tissue evaluation, and placement in a cast. The patient will likely be completely nonweightbearing for 10-12 weeks.
[2017-10-06] MEDS: MAGNESIUM SULFATE-D5W PMX 1 GM in DEXTROSE/WATER 1 100ML.BAG IVPB SCH ×2 (14:17→16:11)
[2017-10-06] MEDS: MAGNESIUM OXIDE 400 MG TAB PO SCH ×2 (14:20→20:49)
[2017-10-06] MEDS: POTASSIUM CHLORIDE ER 20 MEQ TAB.ER PO SCH (14:20)
[2017-10-06] MEDS: SODIUM CHLORIDE TAB 1 GM TAB PO SCH ×3 (14:20→20:49)
[2017-10-06] MEDS: THIAMINE 100 MG TAB PO SCH ×2 (14:21→16:12)
[2017-10-06] MEDS: cefTRIAXone IN SWFI 1,000 MG/10 ML SYRINGE IVP SCH (16:32)
--- NOTE | 2017-10-06 16:32 | P.PN ---
Subjective Progress Note Date: 10/06/17 This is a 62-year-old female with past medical history significant for heavy alcohol abuse who presented to the hospital after she had a mechanical fall and was found on the ground for approximately 10-12 hours. Patient was evaluated in the emergency room and was complaining of right ankle pain. She was right ankle dislocation status post reduction in the emergency room. Patient was also found to have significant electrolyte derangement and profound hyponatremia. Her mentation was acceptable as patient remained awake and alert and oriented despite profound hyponatremia. There was no seizure documented. Patient is being hydrated with IV fluids. She was also started on antibiotic to cover her for underlying UTI. 10/05/2017 patient is scheduled for orthopedic surgery on Sunday for removal of the external fixator and fixation of the fibula fracture. Patient's sodium level has improved to 132. Nephrology is following. Patient has no new complaints. On 10/06/2017 patient is alert and oriented 3 in no apparent distress she just returned from her right ankle surgery, blood pressure is on the low side at 96/ 60 otherwise patient is feeling well she is denying any symptoms at this time Objective - Vital Signs Vital signs: Vital Signs Temp 97.8 F 10/06/17 14:00 Pulse 114 H 10/06/17 14:00 Resp 18 10/06/17 14:00 BP 130/86 10/06/17 14:00 Pulse Ox 96 10/06/17 14:00 Intake & Output 10/05/17 10/06/17 10/06/17 18:59 06:59 18:59 Intake Total 820 125 900 Output Total 800 1125 1625 Balance 20 -1000 -725 Weight 100.1 kg Intake: IV 800 Intake, IV Titration 220 0 100 Amount Magnesium Sulfate-D5w Pmx 200 1 gm In Dextrose/Water 1 100ml.bag @ 100 mls/hr IVPB Q1H [facility] Rx#: [id number] Magnesium Sulfate-D5w Pmx 100 1 gm In Dextrose/Water 1 100ml.bag @ 100 mls/hr IVPB Q1H [facility] Rx#: [id number] Sodium Chloride 0.9% 1, 0 000 ml As IV .STK-MED ONE Rx#:[id number] Sodium Chloride 0.9% 1, 20 0 000 ml As IV .STK-MED ONE Rx#:[id number] Oral 600 125 Output: Urine 800 1125 1600 Estimated Blood Loss 25 Other: Voiding Method Indwelling Catheter Indwelling Catheter Indwelling Catheter # Bowel Movements 1 - Exam Head normocephalic and atraumatic Neck supple no JVD no goiter Lungs clear to auscultation bilaterally no wheezing or crackles Heart regular rate and rhythm S1-S2, no rub or gallop Abdomen is soft nontender nondistended positive bowel sounds no hepatosplenomegaly Extremities right leg in a cast Neuro alert and orientated to 3 - Labs CBC & Chem 7: 10/06/17 05:34 10/06/17 15:44 Labs: Abnormal Lab Results - Last 24 Hours (Table) 10/06/17 10/06/17 10/06/17 Range/Units 05:34 05:34 15:44 WBC 3.6 L (3.8-10.6) k/uL RBC 3.49 L (3.80-5.40) m/uL Hgb 10.9 L (11.4-16.0) gm/dL Hct 33.1 L (34.0-46.0) % Lymphocytes # 0.4 L (1.0-4.8) k/uL Sodium 125 L 128 L (137-145) mmol/L Chloride 88 L (98-107) mmol/L Glucose 101 H (74-99) mg/dL Magnesium 1.5 L (1.6-2.3) mg/dL Assessment and Plan Plan: 1. 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 Nephrology is following. Sodium improving at 132 today. Status post 3 doses of Samsca. Continue fluid restrictions 2. Heavy alcohol abuse: Counseled extensively. Not triggering on CIWA protocol 3. Rhabdomyolysis 4. Mechanical fall: We will consult PT/OT 5. Right fibula fracture: Seen and evaluated by orthopedic. Patient scheduled for surgery tomorrow to remove fixator 6 fibular fracture 6. Urinary tract infection, started on IV ceftriaxone. Urine culture showed normal richie. Would finish 5 days of antibiotic. 7. Hypotension: Improved. Secondary to intravascular depletion. Improved. 8. GI and DVT prophylaxis ordered 9. Hypomagnesemia and hypokalemia patient receiving supplements.
[2017-10-06] MEDS: SODIUM CHLORIDE 0.9% 1,000 ML IV SCH (20:48)
[2017-10-07] MEDS: SODIUM CHLORIDE 0.9% 1,000 ML IV SCH (05:57)
[2017-10-07] MEDS: PANTOPRAZOLE 40 MG TABLET PO SCH (05:57)
[2017-10-07 06:03] LABS: Basophils % (A) 1 %; Eosinophils # (A) 0.2 k/uL (0-0.7); Eosinophils % (A) 3 %; HCT 32.7 % (34.0-46.0); HGB 10.7 gm/dL (11.4-16.0); Lymphocytes # (A) 0.7 k/uL (1.0-4.8); Lymphocytes % (A) 10 %; MCH 31.3 pg (25.0-35.0); MCHC 32.8 g/dL (31.0-37.0); MCV 95.4 fL (80.0-100.0); Mean Platelet Volume 7.7; Monocytes # (A) 0.4 k/uL (0-1.0); Monocytes % (A) 6 %; Neutrophils # (A) 5.5 k/uL (1.3-7.7); Neutrophils % (A) 79 %; Platelet Count 318 k/uL (150-450); RBC 3.43 m/uL (3.80-5.40); RDW 12.9 % (11.5-15.5)
[2017-10-07 06:14] LABS: Anion Gap 9 mmol/L; Blood Urea Nitrogen 15 mg/dL (7-17); Calcium 8.6 mg/dL (8.4-10.2); Carbon Dioxide 29 mmol/L (22-30); Chloride 92 mmol/L (98-107); Glucose 118 mg/dL (74-99); Magnesium 1.7 mg/dL (1.6-2.3); Potassium 3.6 mmol/L (3.5-5.1); Sodium 130 mmol/L (137-145)
[2017-10-07] MEDS: MAGNESIUM OXIDE 400 MG TAB PO SCH ×2 (08:06→22:25)
[2017-10-07] MEDS: diphenhydrAMINE 25 MG CAP PO PRN ×2 (08:06→22:22)
[2017-10-07] MEDS: POTASSIUM CHLORIDE ER 20 MEQ TAB.ER PO SCH (08:06)
[2017-10-07] MEDS: METOPROLOL TARTRATE 12.5 MG TAB PO SCH ×2 (08:06→22:25)
[2017-10-07] MEDS: ENOXAPARIN 40 MG/0.4 ML SYRINGE SQ SCH (08:06)
[2017-10-07] MEDS: SODIUM CHLORIDE TAB 1 GM TAB PO SCH ×3 (08:07→22:24)
--- NOTE | 2017-10-07 09:31 | P.PN ---
Subjective Progress Note Date: 10/07/17 This is a 62-year-old female who is status post open reduction and internal fixation right lateral malleolus fracture and removal of ankle spanning external fixator, right ankle. Patient states her pain is well controlled today and she denies any new complaints. Objective - Vital Signs Vital signs: Vital Signs Temp 98.8 F 10/07/17 04:00 Pulse 100 10/07/17 04:00 Resp 16 10/07/17 04:00 BP 114/70 10/07/17 04:00 Pulse Ox 97 10/07/17 04:00 Intake & Output 10/06/17 10/07/17 10/07/17 18:59 06:59 18:59 Intake Total 1140 1315 Output Total 1625 2200 Balance -485 -885 Weight 102 kg Intake: IV 800 Intake, IV Titration 100 750 Amount Magnesium Sulfate-D5w Pmx 100 100 1 gm In Dextrose/Water 1 100ml.bag @ 100 mls/hr IVPB Q1H [facility] Rx#: [id number] Sodium Chloride 0.9% 1, 450 000 ml @ 75 mls/hr IV . [id number] [facility] Rx#:[id number] Sodium Chloride 0.9% 1, 200 000 ml As IV .STK-MED ONE Rx#:[id number] Oral 240 565 Output: Urine 1600 2200 Estimated Blood Loss 25 Other: Voiding Method Indwelling Catheter Indwelling Catheter - Exam On exam patient is lying comfortably in bed in no acute distress. Patient is alert and oriented 3. Splint is clean, dry and intact. Sensation intact to the toes foot. Capillary refill is normal at less than 2 seconds. Neurovascular status and circulatory status are intact. - Labs CBC & Chem 7: 10/07/17 05:42 10/07/17 05:42 Labs: Abnormal Lab Results - Last 24 Hours (Table) 10/06/17 10/07/17 10/07/17 Range/Units 15:44 05:42 05:42 RBC 3.43 L (3.80-5.40) m/uL Hgb 10.7 L (11.4-16.0) gm/dL Hct 32.7 L (34.0-46.0) % Lymphocytes # 0.7 L (1.0-4.8) k/uL Sodium 128 L 130 L (137-145) mmol/L Chloride 92 L (98-107) mmol/L Glucose 118 H (74-99) mg/dL Assessment and Plan (1) Closed right ankle fracture Current Visit: Yes Status: Acute Priority: Medium Code(s): S82.891A - OTH FRACTURE OF RIGHT LOWER LEG, INIT FOR CLOS FX SNOMED Code(s): 94102245 (2) Fall Current Visit: Yes Status: Acute Code(s): W19.XXXA - UNSPECIFIED FALL, INITIAL ENCOUNTER SNOMED Code(s): 2639618 Plan: #1. Strictly nonweightbearing to right lower extremity. #2. Splint to remain intact for 2 weeks. Continue to elevate right lower extremity. #3. Continue routine postoperative care and pain control. #4. Continue DVT prophylaxis. #5. Likely discharge to rehab tomorrow. Will continue to follow the patient closely.
--- NOTE | 2017-10-07 09:43 | P.PN ---
Subjective Patient is seen in follow-up for hyponatremia. Sodium level is 130 today. She did receive 3 doses of Samsca so far - last dose on October 03. She underwent right ankle ORIF on 10/06/17. Currently resting in bed. Oral intake is good. No vomiting or diarrhea. Denies chest pain or shortness of breath. GFR at baseline. No active complaints at this time. Vital signs are stable. General: The patient appeared well nourished and normally developed. HEENT: Head exam is unremarkable. Neck is without jugular venous distension. LUNGS: Lungs are clear to auscultation and percussion. Breath sounds decreased. HEART: Rate and Rhythm are regular. First and second heart sounds normal. No murmurs, rubs or gallops. ABDOMEN: Abdominal exam reveals normal bowel sounds. Non-tender and non- distended. No evidence of peritonitis. EXTREMITITES: No clubbing, cyanosis, or edema. Objective - Vital Signs Vital signs: Vital Signs Temp 98.8 F 10/07/17 04:00 Pulse 100 10/07/17 04:00 Resp 16 10/07/17 04:00 BP 114/70 10/07/17 04:00 Pulse Ox 97 10/07/17 04:00 Intake & Output 10/06/17 10/07/17 10/07/17 18:59 06:59 18:59 Intake Total 1140 1315 Output Total 1625 2200 Balance -485 -885 Weight 102 kg Intake: IV 800 Intake, IV Titration 100 750 Amount Magnesium Sulfate-D5w Pmx 100 100 1 gm In Dextrose/Water 1 100ml.bag @ 100 mls/hr IVPB Q1H [facility] Rx#: [id number] Sodium Chloride 0.9% 1, 450 000 ml @ 75 mls/hr IV . [id number] [facility] Rx#:[id number] Sodium Chloride 0.9% 1, 200 000 ml As IV .STK-MED ONE Rx#:[id number] Oral 240 565 Output: Urine 1600 2200 Estimated Blood Loss 25 Other: Voiding Method Indwelling Catheter Indwelling Catheter - Labs CBC & Chem 7: 10/07/17 05:42 10/07/17 05:42 Labs: Abnormal Lab Results - Last 24 Hours (Table) 10/06/17 10/07/17 10/07/17 Range/Units 15:44 05:42 05:42 RBC 3.43 L (3.80-5.40) m/uL Hgb 10.7 L (11.4-16.0) gm/dL Hct 32.7 L (34.0-46.0) % Lymphocytes # 0.7 L (1.0-4.8) k/uL Sodium 128 L 130 L (137-145) mmol/L Chloride 92 L (98-107) mmol/L Glucose 118 H (74-99) mg/dL Assessment and Plan Plan: Assessment: #1. Hyponatremia initially secondary to SIADH. Now there appears to be a component of hypovolemia as her sodium is improving with normal saline. Sodium level 130 today. Status post 3 doses of Samsca. #2. Status post right ankle ORIF. #3. Benign hypertension. Currently controlled. #4. Hypomagnesemia secondary to diuretics. Maintained on Mag-Ox. #5. Hypokalemia secondary to diuresis. Plan: Continue to hold Lasix. Continue normal saline at 75 mL an hour. Maintain salt tabs 3 times daily. I will liberalize fluid intake to 1500 mL per day. Encouraged oral intake. Replace magnesium. 1 g IV today. Replace potassium. 20 mg once today. Repeat electrolytes in the morning.
[2017-10-07] MEDS ORDERED: MAGNESIUM SULFATE-D5W PMX 1 GM in DEXTROSE/WATER 1 100ML.BAG IVPB ONE (10:00)
[2017-10-07] MEDS: THIAMINE 100 MG TAB PO SCH ×2 (11:55→17:43)
--- NOTE | 2017-10-07 12:05 | P.PN ---
Subjective Progress Note Date: 10/07/17 This is a 62-year-old female with past medical history significant for heavy alcohol abuse who presented to the hospital after she had a mechanical fall and was found on the ground for approximately 10-12 hours. Patient was evaluated in the emergency room and was complaining of right ankle pain. She was right ankle dislocation status post reduction in the emergency room. Patient was also found to have significant electrolyte derangement and profound hyponatremia. Her mentation was acceptable as patient remained awake and alert and oriented despite profound hyponatremia. There was no seizure documented. Patient is being hydrated with IV fluids. She was also started on antibiotic to cover her for underlying UTI. 10/05/2017 patient is scheduled for orthopedic surgery on Sunday for removal of the external fixator and fixation of the fibula fracture. Patient's sodium level has improved to 132. Nephrology is following. Patient has no new complaints. On 10/06/2017 patient is alert and oriented 3 in no apparent distress she just returned from her right ankle surgery, blood pressure is on the low side at 96/ 60 otherwise patient is feeling well she is denying any symptoms at this time On 10/07/2017 patient is alert and oriented 3 complaining of some discomfort in her right ankle otherwise she denies any complaints there is no chest pain or shortness of breath no cough no nausea or vomiting no abdominal pain and no urinary symptoms Objective - Vital Signs Vital signs: Vital Signs Temp 97 F L 10/07/17 08:00 Pulse 116 H 10/07/17 08:00 Resp 18 10/07/17 08:00 BP 101/61 10/07/17 08:00 Pulse Ox 97 10/07/17 08:00 Intake & Output 10/06/17 10/07/17 10/07/17 18:59 06:59 18:59 Intake Total 1140 1315 Output Total 1625 2200 200 Balance -485 -885 -200 Weight 102 kg Intake: IV 800 Intake, IV Titration 100 750 Amount Magnesium Sulfate-D5w Pmx 100 100 1 gm In Dextrose/Water 1 100ml.bag @ 100 mls/hr IVPB Q1H [facility] Rx#: [id number] Sodium Chloride 0.9% 1, 450 000 ml @ 75 mls/hr IV . [id number] [facility] Rx#:[id number] Sodium Chloride 0.9% 1, 200 000 ml As IV .STK-MED ONE Rx#:[id number] Oral 240 565 Output: Urine 1600 2200 200 Estimated Blood Loss 25 Other: Voiding Method Indwelling Catheter Indwelling Catheter Indwelling Catheter # Bowel Movements 1 - Exam Head normocephalic and atraumatic Neck supple no JVD no goiter Lungs clear to auscultation bilaterally no wheezing or crackles Heart regular rate and rhythm S1-S2, no rub or gallop Abdomen is soft nontender nondistended positive bowel sounds no hepatosplenomegaly Extremities right leg in a cast Neuro alert and orientated to 3 - Labs CBC & Chem 7: 10/07/17 05:42 10/07/17 05:42 Labs: Abnormal Lab Results - Last 24 Hours (Table) 10/06/17 10/07/17 10/07/17 Range/Units 15:44 05:42 05:42 RBC 3.43 L (3.80-5.40) m/uL Hgb 10.7 L (11.4-16.0) gm/dL Hct 32.7 L (34.0-46.0) % Lymphocytes # 0.7 L (1.0-4.8) k/uL Sodium 128 L 130 L (137-145) mmol/L Chloride 92 L (98-107) mmol/L Glucose 118 H (74-99) mg/dL Assessment and Plan Plan: 1. 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 Nephrology is following. Sodium improving at 130 today. Status post 3 doses of Samsca. Continue fluid restrictions 2. Heavy alcohol abuse: Counseled extensively. Not triggering on CIWA protocol 3. Rhabdomyolysis, improved 4. Mechanical fall: We will consult PT/OT 5. Right fibula fracture: Seen and evaluated by orthopedic. Patient underwent surgery to remove fixator for fibular fracture 6. Urinary tract infection, started on IV ceftriaxone. Urine culture showed normal richie. Would finish 5 days of antibiotic. 7. Hypotension: Improved. Secondary to intravascular depletion. Improved. 8. GI and DVT prophylaxis ordered 9. Hypomagnesemia and hypokalemia patient receiving supplements.
[2017-10-07] MEDS: HYDROcodone/APAP 5-325MG 1 EACH TAB PO PRN (22:23)
[2017-10-08 07:55] LABS: Basophils % (A) 1 %; Eosinophils # (A) 0.6 k/uL (0-0.7); Eosinophils % (A) 11 %; HCT 31.5 % (34.0-46.0); HGB 10.1 gm/dL (11.4-16.0); Lymphocytes # (A) 0.9 k/uL (1.0-4.8); Lymphocytes % (A) 15 %; MCHC 32.2 g/dL (31.0-37.0); MCV 96.2 fL (80.0-100.0); Mean Platelet Volume 7.4; Monocytes # (A) 0.4 k/uL (0-1.0); Monocytes % (A) 6 %; Neutrophils # (A) 3.8 k/uL (1.3-7.7); Neutrophils % (A) 65 %; Platelet Count 323 k/uL (150-450); RBC 3.27 m/uL (3.80-5.40); WBC 5.8 k/uL (3.8-10.6)
[2017-10-08 08:10] LABS: ALT 42 U/L (9-52); AST 31 U/L (14-36); Albumin 2.7 g/dL (3.5-5.0); Alkaline Phosphatase 70 U/L (38-126); Anion Gap 7 mmol/L; Blood Urea Nitrogen 13 mg/dL (7-17); Calcium 8.4 mg/dL (8.4-10.2); Carbon Dioxide 29 mmol/L (22-30); Chloride 95 mmol/L (98-107); Glucose 87 mg/dL (74-99); Magnesium 1.5 mg/dL (1.6-2.3); Potassium 3.7 mmol/L (3.5-5.1); Sodium 131 mmol/L (137-145); Total Bilirubin 0.6 mg/dL (0.2-1.3)
[2017-10-08] MEDS ORDERED: MAGNESIUM SULFATE-D5W PMX 1 GM in DEXTROSE/WATER 1 100ML.BAG IVPB ONE (08:30)
[2017-10-08] MEDS: SODIUM CHLORIDE 0.9% 1,000 ML IV SCH ×3 (09:06→20:29)
[2017-10-08] MEDS: MAGNESIUM OXIDE 400 MG TAB PO SCH ×3 (09:08→23:19)
[2017-10-08] MEDS: ENOXAPARIN 40 MG/0.4 ML SYRINGE SQ SCH (09:08)
[2017-10-08] MEDS: diphenhydrAMINE 25 MG CAP PO PRN ×2 (09:09→20:33)
[2017-10-08] MEDS: HYDROcodone/APAP 5-325MG 1 EACH TAB PO PRN ×2 (09:09→18:13)
[2017-10-08] MEDS: POTASSIUM CHLORIDE ER 20 MEQ TAB.ER PO SCH (09:10)
[2017-10-08] MEDS: THIAMINE 100 MG TAB PO SCH ×2 (09:10→18:08)
[2017-10-08] MEDS: METOPROLOL TARTRATE 12.5 MG TAB PO SCH ×2 (09:10→20:33)
[2017-10-08] MEDS: PANTOPRAZOLE 40 MG TABLET PO SCH (09:11)
[2017-10-08] MEDS: SODIUM CHLORIDE TAB 1 GM TAB PO SCH ×3 (09:11→23:19)
--- NOTE | 2017-10-08 10:53 | P.PN ---
Subjective Progress Note Date: 10/08/17 This is a 62-year-old female with past medical history significant for heavy alcohol abuse who presented to the hospital after she had a mechanical fall and was found on the ground for approximately 10-12 hours. Patient was evaluated in the emergency room and was complaining of right ankle pain. She was right ankle dislocation status post reduction in the emergency room. Patient was also found to have significant electrolyte derangement and profound hyponatremia. Her mentation was acceptable as patient remained awake and alert and oriented despite profound hyponatremia. There was no seizure documented. Patient is being hydrated with IV fluids. She was also started on antibiotic to cover her for underlying UTI. 10/05/2017 patient is scheduled for orthopedic surgery on Sunday for removal of the external fixator and fixation of the fibula fracture. Patient's sodium level has improved to 132. Nephrology is following. Patient has no new complaints. 10/10/2017 patient lying in bed comfortably. Status post ORIF of the right lateral malleolus fracture. She reports pain is controlled. Denies any chest pain or shortness of breath. Denies any nausea or vomiting. Last bowel movement 2 days ago. Will work on removing Silverman catheter and weaning patient off oxygen. Incentive spirometer ordered. Objective - Vital Signs Vital signs: Vital Signs Temp 97.8 F 10/08/17 07:00 Pulse 110 H 10/08/17 07:00 Resp 18 10/08/17 07:00 BP 119/73 10/08/17 07:00 Pulse Ox 98 10/08/17 07:00 Intake & Output 10/07/17 10/08/17 10/08/17 18:59 06:59 18:59 Intake Total 236 1700 Output Total 200 Balance 36 1700 Weight 102 kg 106.5 kg Intake: Intake, IV Titration 800 Amount Sodium Chloride 0.9% 1, 800 000 ml @ 75 mls/hr IV . [id number] [facility] Rx#:[id number] Oral 236 900 Output: Urine 200 Other: Voiding Method Indwelling Catheter Indwelling Catheter Indwelling Catheter # Bowel Movements 1 - Exam Head normocephalic Neck supple Lungs clear to auscultation bilaterally no wheezing or crackles Heart regular rate and rhythm S1-S2, no rub or gallop Abdomen is soft nontender nondistended positive bowel sounds no hepatosplenomegaly Extremities right ankle in splint Neuro alert and orientated to 3 - Labs CBC & Chem 7: 10/08/17 07:24 10/08/17 07:24 Labs: Abnormal Lab Results - Last 24 Hours (Table) 10/07/17 10/08/17 10/08/17 Range/Units 05:42 07:24 07:24 RBC 3.27 L (3.80-5.40) m/uL Hgb 10.1 L (11.4-16.0) gm/dL Hct 31.5 L (34.0-46.0) % Lymphocytes # 0.9 L (1.0-4.8) k/uL Sodium 131 L (137-145) mmol/L Chloride 95 L (98-107) mmol/L Magnesium 1.5 L (1.6-2.3) mg/dL Total Protein 5.0 L (6.3-8.2) g/dL Albumin 2.7 L (3.5-5.0) g/dL Vitamin D 25-Hydroxy 12.0 L (30.0-100.0) ng/mL Assessment and Plan Assessment: 1. 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 Nephrology is following. Sodium improving at 131 today. Status post 3 doses of Samsca. Continue fluid restrictions 2. Heavy alcohol abuse: Counseled extensively. Not triggering on CIWA protocol 3. Rhabdomyolysis 4. Mechanical fall: We will consult PT/OT 5. Right lateral malleolus fracture status post open reduction internal fixation: Orthopedics following. 6. Urinary tract infection, started on IV ceftriaxone. Urine culture showed normal richie. Would finish 5 days of antibiotic. 7. Hypotension: Improved. Secondary to intravascular depletion. Improved. 8. GI and DVT prophylaxis ordered 9. Hypomagnesemia : Magnesium 1.5. Give magnesium supplement met. Repeat magnesium level in a.m. 10. Vitamin D deficiency: Vitamin D level of 12. Start vitamin D2 50,000 units every weekly 12. Tachycardia: Heart rate around 110-113. May be related to pain. Check EKG Will have Silverman catheter removed today. Wean patient off of oxygen, keeping oxygen saturation greater than 92%. Incentive spirometer ordered. Social work working on ECF placement. Due to patient's insurance, placement may be difficult. Social work working on discharge planning. Anticipate discharge possibly tomorrow I performed an examination of the patient and discussed their management with the physician Information Systems Project Manager. I have reviewed the Physician Information Systems Project Manager's notes and agree with the documented findings and plan of care
[2017-10-08] MEDS ORDERED: ERGOCALCIFEROL 50,000 UNIT CAP PO SCH (11:00)
--- NOTE | 2017-10-08 11:31 | P.PN ---
Subjective Patient is seen in follow-up for hyponatremia. Sodium level is 131 today. She did receive 3 doses of Samsca so far - last dose on October 03. She underwent right ankle ORIF on 10/06/17. Currently resting in bed. Oral intake is good. No vomiting or diarrhea. Denies chest pain or shortness of breath. GFR at baseline. No active complaints at this time. Vital signs are stable. General: The patient appeared well nourished and normally developed. HEENT: Head exam is unremarkable. Neck is without jugular venous distension. LUNGS: Lungs are clear to auscultation and percussion. Breath sounds decreased. HEART: Rate and Rhythm are regular. First and second heart sounds normal. No murmurs, rubs or gallops. ABDOMEN: Abdominal exam reveals normal bowel sounds. Non-tender and non- distended. No evidence of peritonitis. EXTREMITITES: No clubbing, cyanosis, or edema. Objective - Vital Signs Vital signs: Vital Signs Temp 97.8 F 10/08/17 07:00 Pulse 110 H 10/08/17 07:00 Resp 18 10/08/17 07:00 BP 119/73 10/08/17 07:00 Pulse Ox 98 10/08/17 07:00 Intake & Output 10/07/17 10/08/17 10/08/17 18:59 06:59 18:59 Intake Total 236 1700 Output Total 200 Balance 36 1700 Weight 102 kg 106.5 kg Intake: Intake, IV Titration 800 Amount Sodium Chloride 0.9% 1, 800 000 ml @ 75 mls/hr IV . [id number] [facility] Rx#:[id number] Oral 236 900 Output: Urine 200 Other: Voiding Method Indwelling Catheter Indwelling Catheter Indwelling Catheter # Bowel Movements 1 - Labs CBC & Chem 7: 10/08/17 07:24 10/08/17 07:24 Labs: Abnormal Lab Results - Last 24 Hours (Table) 10/07/17 10/08/17 10/08/17 Range/Units 05:42 07:24 07:24 RBC 3.27 L (3.80-5.40) m/uL Hgb 10.1 L (11.4-16.0) gm/dL Hct 31.5 L (34.0-46.0) % Lymphocytes # 0.9 L (1.0-4.8) k/uL Sodium 131 L (137-145) mmol/L Chloride 95 L (98-107) mmol/L Magnesium 1.5 L (1.6-2.3) mg/dL Total Protein 5.0 L (6.3-8.2) g/dL Albumin 2.7 L (3.5-5.0) g/dL Vitamin D 25-Hydroxy 12.0 L (30.0-100.0) ng/mL Assessment and Plan Plan: Assessment: #1. Hyponatremia initially secondary to SIADH. Now there appears to be a component of hypovolemia as her sodium is improving with normal saline. Sodium level 131 today. Status post 3 doses of Samsca. #2. Status post right ankle ORIF. #3. Benign hypertension. Currently controlled. #4. Hypomagnesemia secondary to diuretics. Maintained on Mag-Ox. #5. Hypokalemia secondary to diuresis. Plan: Continue to hold Lasix. Continue normal saline at 75 mL an hour. Maintain salt tabs 3 times daily. Maintain fluid restriction at 1500 mL per day. Encouraged oral intake. Replace magnesium. 2 g IV today. Increase oral magnesium to 3 times daily. Anticipate discharge today. I stressed the importance of maintaining fluid restriction upon discharge to 50-60 ounces per day. Salt tabs can be continued. She will need to get a basic metabolic panel checked within 2-3 days of discharge and follow-up as an outpatient in the next 1-2 weeks.
[2017-10-08] MEDS: MAGNESIUM SULFATE-D5W PMX 1 GM in DEXTROSE/WATER 1 100ML.BAG IVPB SCH ×2 (12:06→13:12)
--- NOTE | 2017-10-08 12:13 | P.PN ---
Subjective Progress Note Date: 10/08/17 Principal diagnosis: S/P ORIF right ankle fracture Patient is seen at bedside this morning. She is postop day #2 from ORIF and removal of external fixation for unstable bimalleolar ankle fracture. Her pain is well controlled and denies any new complaints. She denies numbness, tingling or calf pain. Review of systems is negative for fever, chills, chest pain, shortness of breath or other Objective - Vital Signs Vital signs: Vital Signs Temp 97.8 F 10/08/17 07:00 Pulse 110 H 10/08/17 07:00 Resp 18 10/08/17 07:00 BP 119/73 10/08/17 07:00 Pulse Ox 98 10/08/17 07:00 Intake & Output 10/07/17 10/08/17 10/08/17 18:59 06:59 18:59 Intake Total 236 1700 Output Total 200 Balance 36 1700 Weight 102 kg 106.5 kg Intake: Intake, IV Titration 800 Amount Sodium Chloride 0.9% 1, 800 000 ml @ 75 mls/hr IV . [id number] [facility] Rx#:[id number] Oral 236 900 Output: Urine 200 Other: Voiding Method Indwelling Catheter Indwelling Catheter Indwelling Catheter # Bowel Movements 1 - Exam Inspection reveals well padded appropriate fitting splint in place. There is no active bleeding or drainage. Neurovascular status is intact in toes with motor and sensation. Less than 2 sec cap refill present - Constitutional General appearance: Present: no acute distress - Psychiatric Psychiatric: Present: A&O x's 3, appropriate affect, intact judgment & insight - Labs CBC & Chem 7: 10/08/17 07:24 10/08/17 07:24 Labs: Abnormal Lab Results - Last 24 Hours (Table) 10/07/17 10/08/17 10/08/17 Range/Units 05:42 07:24 07:24 RBC 3.27 L (3.80-5.40) m/uL Hgb 10.1 L (11.4-16.0) gm/dL Hct 31.5 L (34.0-46.0) % Lymphocytes # 0.9 L (1.0-4.8) k/uL Sodium 131 L (137-145) mmol/L Chloride 95 L (98-107) mmol/L Magnesium 1.5 L (1.6-2.3) mg/dL Total Protein 5.0 L (6.3-8.2) g/dL Albumin 2.7 L (3.5-5.0) g/dL Vitamin D 25-Hydroxy 12.0 L (30.0-100.0) ng/mL Assessment and Plan (1) Closed right ankle fracture Narrative/Plan: She will continue with routine postop orthopedic protocol including pain management, wound care, elevation, non weightbearing, DVT prophylaxis and medical management. She [facility] be [facility] to [facility] from ortho standpoint. Current Visit: Yes Status: Acute Priority: Medium Code(s): S82.891A - OTH FRACTURE OF RIGHT LOWER LEG, INIT FOR CLOS FX SNOMED Code(s): 29652351 Time with Patient: Less than 30
[2017-10-08 15:30] VITALS: BMI 47.4
[2017-10-08 21:55] VITALS: RESP 18
[2017-10-09] MEDS: diphenhydrAMINE 25 MG CAP PO PRN ×2 (02:25→10:42)
[2017-10-09 07:48] LABS: Basophils % (A) 1 %; Eosinophils # (A) 0.6 k/uL (0-0.7); Eosinophils % (A) 11 %; HCT 30.8 % (34.0-46.0); HGB 10.1 gm/dL (11.4-16.0); Lymphocytes % (A) 19 %; MCH 31.5 pg (25.0-35.0); MCHC 32.7 g/dL (31.0-37.0); MCV 96.3 fL (80.0-100.0); Mean Platelet Volume 7.1; Monocytes # (A) 0.2 k/uL (0-1.0); Monocytes % (A) 4 %; Neutrophils # (A) 3.3 k/uL (1.3-7.7); Neutrophils % (A) 62 %; Platelet Count 336 k/uL (150-450); RBC 3.19 m/uL (3.80-5.40); WBC 5.3 k/uL (3.8-10.6)
[2017-10-09 07:59] VITALS: BP 130/75; PULSE 85; TEMP 98.4
[2017-10-09 08:06] LABS: ALT 38 U/L (9-52); AST 27 U/L (14-36); Albumin 2.6 g/dL (3.5-5.0); Alkaline Phosphatase 74 U/L (38-126); Anion Gap 7 mmol/L; Blood Urea Nitrogen 9 mg/dL (7-17); Calcium 8.4 mg/dL (8.4-10.2); Carbon Dioxide 28 mmol/L (22-30); Chloride 95 mmol/L (98-107); Glucose 89 mg/dL (74-99); Magnesium 1.5 mg/dL (1.6-2.3); Potassium 3.4 mmol/L (3.5-5.1); Sodium 130 mmol/L (137-145); Total Bilirubin 0.6 mg/dL (0.2-1.3)
[2017-10-09] MEDS ORDERED: POTASSIUM CHLORIDE ER 20 MEQ TAB.ER PO STA ×2 (08:33→13:02)
[2017-10-09] MEDS: POTASSIUM CHLORIDE ER 20 MEQ TAB.ER PO SCH (08:45)
[2017-10-09] MEDS: MAGNESIUM OXIDE 400 MG TAB PO SCH ×2 (08:45→13:48)
[2017-10-09] MEDS: METOPROLOL TARTRATE 12.5 MG TAB PO SCH ×2 (08:45→10:36)
[2017-10-09] MEDS: SODIUM CHLORIDE TAB 1 GM TAB PO SCH ×2 (08:45→15:53)
[2017-10-09] MEDS: PANTOPRAZOLE 40 MG TABLET PO SCH (08:45)
[2017-10-09] MEDS: ENOXAPARIN 40 MG/0.4 ML SYRINGE SQ SCH (08:45)
[2017-10-09] MEDS ORDERED: MAGNESIUM SULFATE-D5W PMX 1 GM in DEXTROSE/WATER 1 100ML.BAG IVPB ONE (09:00)
--- NOTE | 2017-10-09 10:46 | P.PN ---
Subjective Progress Note Date: 10/09/17 This is a 62-year-old female with past medical history significant for heavy alcohol abuse who presented to the hospital after she had a mechanical fall and was found on the ground for approximately 10-12 hours. Patient was evaluated in the emergency room and was complaining of right ankle pain. She was right ankle dislocation status post reduction in the emergency room. Patient was also found to have significant electrolyte derangement and profound hyponatremia. Her mentation was acceptable as patient remained awake and alert and oriented despite profound hyponatremia. There was no seizure documented. Patient is being hydrated with IV fluids. She was also started on antibiotic to cover her for underlying UTI. 10/05/2017 patient is scheduled for orthopedic surgery on Sunday for removal of the external fixator and fixation of the fibula fracture. Patient's sodium level has improved to 132. Nephrology is following. Patient has no new complaints. 10/08/2017 patient lying in bed comfortably. Status post ORIF of the right lateral malleolus fracture. She reports pain is controlled. Denies any chest pain or shortness of breath. Denies any nausea or vomiting. Last bowel movement 2 days ago. Will work on removing Silverman catheter and weaning patient off oxygen. Incentive spirometer ordered. 10/09/2017 patient lying in bed comfortably. Pain is controlled. Reports having small bowel movements. Denies any burning with urination. Due to patient's Medicaid insurance does not cover rehab. Having difficulty placing patient. Social work is involved. Consult will be placed for Dr. Grossman for possible inpatient rehab Objective - Vital Signs Vital signs: Vital Signs Temp 98.4 F 10/09/17 07:00 Pulse 85 10/09/17 07:00 Resp 18 10/09/17 07:00 BP 130/75 10/09/17 07:00 Pulse Ox 95 10/09/17 07:00 Intake & Output 10/08/17 10/09/17 10/09/17 18:59 06:59 18:59 Intake Total 675 920 Output Total 650 Balance 675 270 Weight 106.5 kg 103 kg Intake: Intake, IV Titration 675 300 Amount Magnesium Sulfate-D5w Pmx 300 1 gm In Dextrose/Water 1 100ml.bag @ 100 mls/hr IVPB Q1H [facility] Rx#: [id number] Sodium Chloride 0.9% 1, 375 300 000 ml @ 75 mls/hr IV . [id number] [facility] Rx#:[id number] Oral 620 Output: Urine 650 Other: Voiding Method Bedside Commode Bedside Commode # Voids 1 - Exam Head normocephalic Neck supple Lungs clear to auscultation bilaterally no wheezing or crackles Heart regular rate and rhythm S1-S2, no rub or gallop Abdomen is soft nontender nondistended positive bowel sounds no hepatosplenomegaly Extremities right ankle in splint Neuro alert and orientated to 3 - Labs CBC & Chem 7: 10/09/17 07:32 10/09/17 07:32 Labs: Abnormal Lab Results - Last 24 Hours (Table) 10/09/17 10/09/17 Range/Units 07:32 07:32 RBC 3.19 L (3.80-5.40) m/uL Hgb 10.1 L (11.4-16.0) gm/dL Hct 30.8 L (34.0-46.0) % Sodium 130 L (137-145) mmol/L Potassium 3.4 L (3.5-5.1) mmol/L Chloride 95 L (98-107) mmol/L Magnesium 1.5 L (1.6-2.3) mg/dL Total Protein 5.0 L (6.3-8.2) g/dL Albumin 2.6 L (3.5-5.0) g/dL Assessment and Plan Assessment: 1. 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 Nephrology is following. Sodium improving at 130 today. Status post 3 doses of Samsca. Continue fluid restrictions 2. Heavy alcohol abuse: Counseled extensively. Not triggering on CIWA protocol 3. Rhabdomyolysis 4. Mechanical fall: We will consult PT/OT 5. Right lateral malleolus fracture status post open reduction internal fixation: Orthopedics following. 6. Urinary tract infection, started on IV ceftriaxone. Urine culture showed normal richie. Would finish 5 days of antibiotic. 7. Hypotension: Improved. Secondary to intravascular depletion. Improved. 8. GI and DVT prophylaxis ordered 9. Hypomagnesemia : Magnesium 1.5. Give magnesium sulfate 1 g. Continue oral magnesium. Repeat magnesium level in a.m. 10. Vitamin D deficiency: Vitamin D level of 12. Start vitamin D2 50,000 units every weekly 12. Tachycardia: Heart rate around 110-113. May be related to pain. Check EKG 13. Hypokalemia patient given K-Dur 20 milliequivalents by mouth 1. Repeat potassium level in a.m. Social work working on ECF placement. Unfortunately patient has Medicaid insurance that does not cover rehab. Dr. Anderson will be consulted for possible inpatient rehab. Patient requires rehabilitation due to her right lateral malleolus fracture and recent surgery. Social work is working on discharge to a rehab facility I performed an examination of the patient and discussed their management with the physician Auto Body Repairer Fiberglass. I have reviewed the Physician Auto Body Repairer Fiberglass's notes and agree with the documented findings and plan of care
[2017-10-09] MEDS: MAGNESIUM SULFATE-D5W PMX 1 GM in DEXTROSE/WATER 1 100ML.BAG IVPB SCH ×2 (11:22→13:49)
--- NOTE | 2017-10-09 11:33 | P.PN ---
Subjective Patient is seen in follow-up for hyponatremia. Sodium level is 130 today. She did receive 3 doses of Samsca so far - last dose on October 03. She underwent right ankle ORIF on 10/06/17. Currently resting in bed. Oral intake is good. No vomiting or diarrhea. Denies chest pain or shortness of breath. GFR at baseline. No active complaints at this time. She is awaiting placement to a rehab facility. Vital signs are stable. General: The patient appeared well nourished and normally developed. HEENT: Head exam is unremarkable. Neck is without jugular venous distension. LUNGS: Lungs are clear to auscultation and percussion. Breath sounds decreased. HEART: Rate and Rhythm are regular. First and second heart sounds normal. No murmurs, rubs or gallops. ABDOMEN: Abdominal exam reveals normal bowel sounds. Non-tender and non- distended. No evidence of peritonitis. EXTREMITITES: No clubbing, cyanosis, or edema. Objective - Vital Signs Vital signs: Vital Signs Temp 98.4 F 10/09/17 07:00 Pulse 85 10/09/17 08:00 Resp 18 10/09/17 08:00 BP 130/75 10/09/17 07:00 Pulse Ox 95 10/09/17 07:00 Intake & Output 10/08/17 10/09/17 10/09/17 18:59 06:59 18:59 Intake Total 675 920 Output Total 650 Balance 675 270 Weight 106.5 kg 103 kg Intake: Intake, IV Titration 675 300 Amount Magnesium Sulfate-D5w Pmx 300 1 gm In Dextrose/Water 1 100ml.bag @ 100 mls/hr IVPB Q1H [facility] Rx#: [id number] Sodium Chloride 0.9% 1, 375 300 000 ml @ 75 mls/hr IV . [id number] [facility] Rx#:[id number] Oral 620 Output: Urine 650 Other: Voiding Method Bedside Commode Bedside Commode Bedpan # Voids 1 - Labs CBC & Chem 7: 10/09/17 07:32 10/09/17 07:32 Labs: Abnormal Lab Results - Last 24 Hours (Table) 10/09/17 10/09/17 Range/Units 07:32 07:32 RBC 3.19 L (3.80-5.40) m/uL Hgb 10.1 L (11.4-16.0) gm/dL Hct 30.8 L (34.0-46.0) % Sodium 130 L (137-145) mmol/L Potassium 3.4 L (3.5-5.1) mmol/L Chloride 95 L (98-107) mmol/L Magnesium 1.5 L (1.6-2.3) mg/dL Total Protein 5.0 L (6.3-8.2) g/dL Albumin 2.6 L (3.5-5.0) g/dL Assessment and Plan Plan: Assessment: #1. Hyponatremia initially secondary to SIADH. Now there appears to be a component of hypovolemia as her sodium did improve with normal saline. Sodium level 130 today. Status post 3 doses of Samsca. #2. Status post right ankle ORIF. #3. Benign hypertension. Currently controlled. #4. Hypomagnesemia secondary to diuretics. Maintained on Mag-Ox. #5. Hypokalemia secondary to diuresis. Plan: Continue to hold Lasix. Hep-Lock IV fluids. Maintain salt tabs 3 times daily. Maintain fluid restriction at 1500 mL per day. Encouraged oral intake. Replace magnesium. 2 g IV today. Maintain oral magnesium 3 times daily. Replace potassium. 60 mEq today. Anticipate discharge soon. I stressed the importance of maintaining fluid restriction upon discharge to 50-60 ounces per day. Salt tabs can be continued. She will need to get a basic metabolic panel checked within 2-3 days of discharge and follow-up as an outpatient in the next 1-2 weeks.
--- NOTE | 2017-10-09 13:23 | P.DS ---
Providers Date of admission: 09/25/17 18:18 Expected date of discharge: 10/09/17 Attending physician: Annita Delong Consults: 09/25/17 18:48 Consult Physician Routine Consulting Provider: Obed Luz Consult Reason/Comments: ICU, hyponatremia Do you want consulting provider notified?: Already Contacted 09/26/17 10:40 Consult Physician Routine Consulting Provider: Samantha Almeida Consult Reason/Comments: hyponatremia Do you want consulting provider notified?: Yes 09/26/17 10:41 Consult Physician Routine Consulting Provider: Herman Martino Consult Reason/Comments: ankle fracture Do you want consulting provider notified?: Yes Primary care physician: Vicki Mcdonald Hospital Course: Discharge diagnosis 1. hyponatremia: Secondary to SIADH. Nephrology is following. Sodium improving at 130 today. Status post 3 doses of Samsca. Continue fluid restrictions 2. Heavy alcohol abuse: Counseled extensively. Not triggering on CIWA protocol 3. Rhabdomyolysis 4. Mechanical fall: We will consult PT/OT 5. Right lateral malleolus fracture status post open reduction internal fixation: Orthopedics following. 6. Urinary tract infection, Urine culture showed normal richie. Completed a antibiotics during her hospitalization 7. Hypotension: Improved. Secondary to intravascular depletion. Improved. 8. GI and DVT prophylaxis ordered 9. Hypomagnesemia : Magnesium 1.5. Give magnesium sulfate 1 g. Continue oral magnesium. 10. Vitamin D deficiency: Vitamin D level of 12. Start vitamin D2 50,000 units every weekly 12. Sinus Tachycardia: Now resolved. She did have an EKG shows sinus tachycardia with a first-degree heart block heart rate 111. May have been pain related. Now resolved. Heart rate today has been in the 80s. Continue her beta fernandez 13. Hypokalemia patient given K-Dur 20 milliequivalents by mouth 1. Repeat potassium level in a.m. Hospital course This is a 62-year-old female with past medical history significant for heavy alcohol abuse who presented to the hospital after she had a mechanical fall and was found on the ground for approximately 10-12 hours. Patient was evaluated in the emergency room and was complaining of right ankle pain. She was right ankle dislocation status post reduction in the emergency room. Patient was also found to have significant electrolyte derangement and profound hyponatremia. Her mentation was acceptable as patient remained awake and alert and oriented despite profound hyponatremia. There was no seizure documented. Patient is being hydrated with IV fluids. She was also started on antibiotic to cover her for underlying UTI. Patient was followed closely by nephrology in regards to her hyponatremia. Was likely related to SIADH. She had received Samsca and place on fluid restrictions. Also given IV fluids. Sodium at discharge is 130. Nephrology recommends that she has a repeat BMP in 2 days. And she'll follow-up with him in the office in one week. Patient also had a right ankle fracture in which she had an open reduction internal fixation with Dr. Ruiz. They have cleared her for discharge. Recommend that she undergoes rehabilitation. She' ll be discharged to [facility]. Patient's magnesium and potassium have been replaced today. Recommend repeating blood work in 2 days. Patient is medical stable for discharge. Please refer to chart for any further details. I performed an examination of the patient and discussed their management with the physician Embossograph Operator. I have reviewed the Physician Embossograph Operator's notes and agree with the documented findings and plan of care Patient Condition at Discharge: Stable Plan - Discharge Summary Discharge Rx Participant: No New Discharge Prescriptions: New Ergocalciferol [Vitamin D2 (DRISDOL)] 50,000 unit PO Q7D #4 cap HYDROcodone/APAP 5-325MG [[place] 5-325] 1 each PO Q4HR PRN #40 tab PRN Reason: Moderate Pain Magnesium Oxide [Mag-Ox] 400 mg PO TID tab Metoprolol Tartrate [Lopressor] 12.5 mg PO BID tab Potassium Chloride ER [K-Dur 20] 20 meq PO DAILY tab.er.prt Sodium Chloride Tab 1 gm PO TID tab Thiamine [Vitamin B-1] 100 mg PO BID@1200,1700 tab Continue hydrOXYzine PAMOATE [Vistaril] 25 mg PO TID PRN PRN Reason: Anxiety Discontinued amLODIPine BESYLATE/BENAZEPRIL [Lotrel 10-20 mg Capsule] 1 cap PO DAILY Atenolol/Chlorthalidone [Tenoretic 100 Tablet] 1 tab PO DAILY Discharge Medication List hydrOXYzine PAMOATE [Vistaril] 25 mg PO TID PRN 09/25/17 [History] Ergocalciferol [Vitamin D2 (DRISDOL)] 50,000 unit PO Q7D #4 cap 10/09/17 [Rx] HYDROcodone/APAP 5-325MG [[place] 5-325] 1 each PO Q4HR PRN #40 tab 10/09/17 [Rx] Magnesium Oxide [Mag-Ox] 400 mg PO TID tab 10/09/17 [Rx] Metoprolol Tartrate [Lopressor] 12.5 mg PO BID tab 10/09/17 [Rx] Potassium Chloride ER [K-Dur 20] 20 meq PO DAILY tab.er.prt 10/09/17 [Rx] Sodium Chloride Tab 1 gm PO TID tab 10/09/17 [Rx] Thiamine [Vitamin B-1] 100 mg PO BID@1200,1700 tab 10/09/17 [Rx] Follow up Appointment(s)/Referral(s): Darryl Ruiz MD [Medical Doctor] - 2 Weeks Vicki Mcdonald MD [Primary Care Provider] - 1 Week Rony Gillette DO [STAFF PHYSICIAN] - 1 Week Activity/Diet/Wound Care/Special Instructions: Nonweightbearing Maintain splint Take meds as directed F/U with Dr. Ruiz in [address] Gillette-continue sodium tablets TID Diet: Regular 50-60oz. fluid restriction per day Discharge to [facility]. Dr. Hedrick to follow Check BMP in 2 days Discharge Disposition: TRANSFER TO SNF/ECF
[2017-10-09] MEDS: THIAMINE 100 MG TAB PO SCH (13:47)
== END 2017-10-09 16:15 | DRG 982 ==
LOC: EC 15:29 → 6ICU 18:18 → 6SEL 09-27 12:22 → 5MS5E 10-07 16:12
PROVIDERS: ADMIT Internal Medicine; ATTEND Internal Medicine
PROC: 0QHJ35Z Insertion of External Fixation Device into Right Fibula, Percutaneous Approach (ICD-10-PCS; 2017-09-25)
PROC: 0QSJ35Z Reposition Right Fibula with External Fixation Device, Percutaneous Approach (ICD-10-PCS; 2017-09-28)
PROC: 0SSFXZZ Reposition Right Ankle Joint, External Approach (ICD-10-PCS; 2017-09-28)
PROC: 0QPJX5Z Removal of External Fixation Device from Right Fibula, External Approach (ICD-10-PCS; 2017-10-06)
PROC: 0QSJ04Z Reposition Right Fibula with Internal Fixation Device, Open Approach (ICD-10-PCS; principal; 2017-10-06 10:35)
DX: E22.2 Syndrome of inappropriate secretion of antidiuretic hormone (principal); M62.82 Rhabdomyolysis; I95.9 Hypotension, unspecified; E66.01 Morbid (severe) obesity due to excess calories; E83.39 Other disorders of phosphorus metabolism; E83.42 Hypomagnesemia; E86.1 Hypovolemia; N39.0 Urinary tract infection, site not specified; Z68.42 Body mass index [BMI] 45.0-49.9, adult; E55.9 Vitamin D deficiency, unspecified; E87.6 Hypokalemia; F10.10 Alcohol abuse, uncomplicated; F41.9 Anxiety disorder, unspecified; I10 Essential (primary) hypertension; I44.0 Atrioventricular block, first degree; K59.00 Constipation, unspecified; T50.2X5A Adverse effect of carbonic-anhydrase inhibitors, benzothiadiazides and other diuretics, initial encounter; S82.843A Displaced bimalleolar fracture of unspecified lower leg, initial encounter for closed fracture; R00.0 Tachycardia, unspecified; Z79.899 Other long term (current) drug therapy; Z71.41 Alcohol abuse counseling and surveillance of alcoholic; Z91.81 History of falling; Z82.49 Family history of ischemic heart disease and other diseases of the circulatory system; W01.0XXA Fall on same level from slipping, tripping and stumbling without subsequent striking against object, initial encounter; Y92.9 Unspecified place or not applicable
CPT/HCPCS: 27788; 36415; 70450; 71045; 72125; 80048; 80053; 80306; 81001; 82306; 82533; 82550; 83735; 83935; 84100; 84132; 84295; 84300; 84439; 84443; 84550; 85025; 85379; 85610; 85730; 87086; 93005; 94760; 96361; 96365; 96366; 96367; 96372; 96375; 99152; 99153; 99285

== ENCOUNTER 2017-11-14 13:48 | Emergency (ER) | payer OTHER ==
[2017-11-14 13:59] VITALS: RESP 18
[2017-11-14] MEDS ORDERED: SODIUM CHLORIDE 0.9% 1,000 ML IV STA (14:09)
[2017-11-14] MEDS ORDERED: ONDANSETRON 4 MG/2 ML VIAL IVP STA (14:23)
[2017-11-14 14:36] LABS: Basophils % (A) 0 %; Eosinophils # (A) 0.3 k/uL (0-0.7); Eosinophils % (A) 3 %; HCT 34.5 % (34.0-46.0); HGB 11.6 gm/dL (11.4-16.0); Lymphocytes # (A) 0.8 k/uL (1.0-4.8); Lymphocytes % (A) 8 %; MCH 30.5 pg (25.0-35.0); MCHC 33.7 g/dL (31.0-37.0); MCV 90.5 fL (80.0-100.0); Mean Platelet Volume 8.1; Monocytes # (A) 0.4 k/uL (0-1.0); Monocytes % (A) 4 %; Neutrophils # (A) 8.1 k/uL (1.3-7.7); Neutrophils % (A) 85 %; Platelet Count 337 k/uL (150-450); RBC 3.81 m/uL (3.80-5.40); RDW 13.3 % (11.5-15.5); WBC 9.6 k/uL (3.8-10.6)
--- NOTE | 2017-11-14 14:37 | ED ---
Neuro HPI - General Chief Complaint: Neuro Symptoms/Deficit Stated Complaint: Poss CVA Time Seen by Provider: 11/14/17 13:51 Source: patient Mode of arrival: EMS - History of Present Illness Is the patient presenting with stroke symptoms?: No Initial Comments: 62 years old female comes from rehab facility she is injury to the right ankle she has a cast on the presented with a left upper or lower extremity numbness time of onset is not clear she does have a history of profound hyponatremia history of for heavy alcohol abuse rhabdomyolysis recent fall with left ankle dislocation recently diagnosed with urinary tract infection hypertension and she was hospitalized during the middle of the September. Right now she denies any headaches no blurred vision no slurred speech no chest pain or shortness of breath no abdominal pain no frequency urgency dysuria no numbness at this point no motor deficit right - Related Data Home Medications: Home Medications Medication Instructions Recorded Confirmed Acetaminophen Tab [Tylenol Tab] 650 mg PO Q4H PRN 11/14/17 11/14/17 Ergocalciferol [Vitamin D2 50,000 unit PO FR 11/14/17 11/14/17 (DRISDOL)] Ferrous Sulfate [Feosol] 325 mg PO BID 11/14/17 11/14/17 Metoprolol Tartrate [Lopressor] 25 mg PO BID 11/14/17 11/14/17 Potassium Chloride ER [K-Dur 20] 20 meq PO DAILY@1700 11/14/17 11/14/17 amLODIPine [Norvasc] 10 mg PO DAILY 11/14/17 11/14/17 diphenhydrAMINE [Benadryl] 25 mg PO DAILY PRN 11/14/17 11/14/17 Previous Rx's Medication Instructions Recorded HYDROcodone/APAP 5-325MG [[place] 1 each PO Q4HR PRN #40 tab 10/09/17 5-325] Magnesium Oxide [Mag-Ox] 400 mg PO TID tab 10/09/17 Thiamine [Vitamin B-1] 100 mg PO BID@1200,1700 tab 10/09/17 Allergies/Adverse Reactions: Allergies Allergy/AdvReac Type Severity Reaction Status Date / Time No Known Allergies Allergy Verified 11/14/17 14:37 Review of Systems ROS Statement: Those systems with pertinent positive or pertinent negative responses have been documented in the HPI. ROS Other: All systems not noted in ROS Statement are negative. General Exam - General Exam Comments Initial Comments: General: The patient is awake and alert, in no distress, and does not appear acutely ill. GCS is 15 and a BMI is 44 Skin: Skin is warm and dry and no rashes or lesions are noted. Eye: Pupils are equal, round and reactive to light, extra-ocular movements are intact; there is normal conjunctiva bilaterally. Ears, nose, mouth and throat: There are moist mucous membranes and no oral lesions. Neck: The neck is supple, there is no tenderness or JVD. Cardiovascular: There is a regular rate and rhythm. No murmur, rub or gallop is appreciated. Respiratory: To auscultation bilateral, decreased breath sounds bilateral Gastrointestinal: Soft, non-distended, non-tender abdomen without masses or organomegaly noted. There is no rebound or guarding present. Bowel sounds are unremarkable. Back: There is no tenderness to palpation in the midline. There is no obvious deformity. Musculoskeletal: She has a cast over the right malleolus and the right foot, great foot toes looked healthy kid. Refill is within normal range no motor or sensory deficits noticed. Upper or lower extremity exam otherwise is also within normal range. Neurological: CN II-XII intact, Cranial nerves III through XII are intact. There are no obvious motor or sensory deficits. Coordination appears grossly intact. Speech is normal. Psychiatric: Cooperative, appropriate mood & affect, normal judgment. Stroke MDM - Lab Data Result diagrams: 11/14/17 14:25 11/14/17 14:25 Lab Results 11/14/17 11/14/17 11/14/17 Range/Units 14:25 14:25 14:25 WBC 9.6 (3.8-10.6) k/uL RBC 3.81 (3.80-5.40) m/uL Hgb 11.6 (11.4-16.0) gm/dL Hct 34.5 (34.0-46.0) % MCV 90.5 (80.0-100.0) fL MCH 30.5 (25.0-35.0) pg MCHC 33.7 (31.0-37.0) g/dL RDW 13.3 (11.5-15.5) % Plt Count 337 (150-450) k/uL Neutrophils % 85 % Lymphocytes % 8 % Monocytes % 4 % Eosinophils % 3 % Basophils % 0 % Neutrophils # 8.1 H (1.3-7.7) k/uL Lymphocytes # 0.8 L (1.0-4.8) k/uL Monocytes # 0.4 (0-1.0) k/uL Eosinophils # 0.3 (0-0.7) k/uL Basophils # 0.0 (0-0.2) k/uL PT (9.0-12.0) sec INR (<1.2) APTT (22.0-30.0) sec Sodium 132 L (137-145) mmol/L Potassium 3.8 (3.5-5.1) mmol/L Chloride 96 L (98-107) mmol/L Carbon Dioxide 25 (22-30) mmol/L Anion Gap 11 mmol/L BUN 12 (7-17) mg/dL Creatinine 0.70 (0.52-1.04) mg/dL Est GFR (CKD-EPI)AfAm >90 (>60 ml/min/1.73 sqM) Est GFR (CKD-EPI)NonAf >90 (>60 ml/min/1.73 sqM) Glucose 120 H (74-99) mg/dL Calcium 9.6 (8.4-10.2) mg/dL Total Bilirubin 1.2 (0.2-1.3) mg/dL AST 20 (14-36) U/L ALT 14 (9-52) U/L Alkaline Phosphatase 87 (38-126) U/L Total Creatine Kinase <20 L (30-135) U/L CK-MB (CK-2) <0.2 (0.0-2.4) ng/mL CK-MB (CK-2) Rel Index Troponin I <0.012 (0.000-0.034) ng/mL Total Protein 6.9 (6.3-8.2) g/dL Albumin 3.6 (3.5-5.0) g/dL Urine Color Urine Appearance (Clear) Urine pH (5.0-8.0) Ur Specific [place] (1.001-1.035) Urine Protein (Negative) Urine Glucose (UA) (Negative) Urine Ketones (Negative) Urine Blood (Negative) Urine Nitrite (Negative) Urine Bilirubin (Negative) Urine Urobilinogen (<2.0) mg/dL Ur Leukocyte Esterase (Negative) Urine RBC (0-5) /hpf Urine WBC (0-5) /hpf Ur Squamous Epith Cells (0-4) /hpf Urine Bacteria (None) /hpf 11/14/17 11/14/17 Range/Units 14:25 14:39 WBC (3.8-10.6) k/uL RBC (3.80-5.40) m/uL Hgb (11.4-16.0) gm/dL Hct (34.0-46.0) % MCV (80.0-100.0) fL MCH (25.0-35.0) pg MCHC (31.0-37.0) g/dL RDW (11.5-15.5) % Plt Count (150-450) k/uL Neutrophils % % Lymphocytes % % Monocytes % % Eosinophils % % Basophils % % Neutrophils # (1.3-7.7) k/uL Lymphocytes # (1.0-4.8) k/uL Monocytes # (0-1.0) k/uL Eosinophils # (0-0.7) k/uL Basophils # (0-0.2) k/uL PT 11.0 (9.0-12.0) sec INR 1.1 (<1.2) APTT 24.3 (22.0-30.0) sec Sodium (137-145) mmol/L Potassium (3.5-5.1) mmol/L Chloride (98-107) mmol/L Carbon Dioxide (22-30) mmol/L Anion Gap mmol/L BUN (7-17) mg/dL Creatinine (0.52-1.04) mg/dL Est GFR (CKD-EPI)AfAm (>60 ml/min/1.73 sqM) Est GFR (CKD-EPI)NonAf (>60 ml/min/1.73 sqM) Glucose (74-99) mg/dL Calcium (8.4-10.2) mg/dL Total Bilirubin (0.2-1.3) mg/dL AST (14-36) U/L ALT (9-52) U/L Alkaline Phosphatase (38-126) U/L Total Creatine Kinase (30-135) U/L CK-MB (CK-2) (0.0-2.4) ng/mL CK-MB (CK-2) Rel Index Troponin I (0.000-0.034) ng/mL Total Protein (6.3-8.2) g/dL Albumin (3.5-5.0) g/dL Urine Color Light Yellow Urine Appearance Clear (Clear) Urine pH 7.5 (5.0-8.0) Ur Specific [place] 1.004 (1.001-1.035) Urine Protein Negative (Negative) Urine Glucose (UA) Negative (Negative) Urine Ketones Negative (Negative) Urine Blood Negative (Negative) Urine Nitrite Negative (Negative) Urine Bilirubin Negative (Negative) Urine Urobilinogen <2.0 (<2.0) mg/dL Ur Leukocyte Esterase Small H (Negative) Urine RBC <1 (0-5) /hpf Urine WBC 8 H (0-5) /hpf Ur Squamous Epith Cells 1 (0-4) /hpf Urine Bacteria Rare H (None) /hpf Past Medical History Past Medical History: Hypertension History of Any Multi-Drug Resistant Organisms: None Reported Past Surgical History: No Surgical Hx Reported Past Psychological History: Anxiety Smoking Status: Never smoker Past Alcohol Use History: None Reported Past Drug Use History: None Reported - Past Family History Father Family Medical History: Hypertension Additional Family Medical History / Comment(s): gout, etoh, Course Vital Signs 11/14/17 11/14/17 13:56 15:21 Temperature 97 F L Pulse Rate 94 76 Respiratory 18 18 Rate Blood Pressure 142/79 146/86 O2 Sat by Pulse 98 98 Oximetry EKG is normal sinus rhythm ventricular rate is 75 TN interval is 196 QRS duration is 100 QT/QTc is 418/466 review of this EKG does not reveal any ST elevation or ST depression noticed a T-wave inversion in leads free Reassessment vital signs are normal CBC is unremarkable so his INR so is the troponin CBC compressive metabolic panel and chest x-ray and head CT him a she would like to go back to rehab facility and she will follow-up with her primary care physician Disposition Clinical Impression: Left sided numbness Disposition: ADMITTED IP TO THIS HOSP Condition: Good Referrals: Vicki Mcdonald MD [Primary Care Provider] - 1-2 days
[2017-11-14 14:43] LABS: ALT 14 U/L (9-52); AST 20 U/L (14-36); Albumin 3.6 g/dL (3.5-5.0); Alkaline Phosphatase 87 U/L (38-126); Anion Gap 11 mmol/L; Blood Urea Nitrogen 12 mg/dL (7-17); Calcium 9.6 mg/dL (8.4-10.2); Carbon Dioxide 25 mmol/L (22-30); Chloride 96 mmol/L (98-107); Glucose 120 mg/dL (74-99); INR 1.1 (<1.2); Partial Thromboplastin Time 24.3 sec (22.0-30.0); Potassium 3.8 mmol/L (3.5-5.1); Sodium 132 mmol/L (137-145); Total Bilirubin 1.2 mg/dL (0.2-1.3); Total Protein 6.9 g/dL (6.3-8.2)
[2017-11-14 14:48] LABS: Appearance,Urine Clear (Clear); Bacteria,Urine Rare /hpf; Bilirubin,Urine Negative (Negative); Blood,Urine Negative (Negative); Color,Urine Light Yellow; Glucose,Urine (UA) Negative (Negative); Ketones,Urine Negative (Negative); Leukocyte Esterase,Urine Small (Negative); Nitrite,Urine Negative (Negative); PH, Urine 7.5 (5.0-8.0); Protein,Urine Negative (Negative); RBC,Urine <1 /hpf (0-5); Specific Gravity,Urine 1.004 (1.001-1.035); Squamous Epithelial Cell,Urine 1 /hpf (0-4); Urobilinogen,Urine <2.0 mg/dL (<2.0); WBC,Urine 8 /hpf (0-5)
[2017-11-14 14:54] LABS: Creatine Kinase <20 U/L (30-135)
[2017-11-14 15:07] LABS: Creatine Kinase MB <0.2 ng/mL (0.0-2.4); Troponin I <0.012 ng/mL (0.000-0.034)
--- NOTE | 2017-11-14 15:15 | CT ---
EXAMINATION TYPE: CT brain wo con DATE OF EXAM: 11/14/2017 COMPARISON: 09/25/2017 HISTORY: 62-year-old female neurologic deficits, complains of right hand and leg numbness. TECHNIQUE: Examination was done in axial plane without intravenous contrast. Coronal and sagittal r econstructions performed. CT DLP: 757.2 mGycm Automated exposure control for dose reduction was used. FINDINGS: There is no evidence of acute intracranial hemorrhage, acute ischemic changes, mass, mass-effect, or extra-axial fluid collection. There is no effacement of cerebral sulci or basal subarachnoid cister ns. There is no hydrocephalus. There is no midline shift. Gay-white matter distinction is preserv ed. Mild bifrontal cerebral atrophy. Mild patchy periventricular white matter hypodensities related to ch anges of chronic small vessel ischemic disease. Paranasal sinuses and mastoid air cells well pneumatized. Visualized orbits and globes are intact. IMPRESSION: No acute intracranial abnormality seen. Stable mild bifrontal atrophy.
--- NOTE | 2017-11-14 15:25 | XR ---
EXAMINATION TYPE: XR chest 2V DATE OF EXAM: 11/14/2017 COMPARISON: NONE TECHNIQUE: PA and lateral views submitted. HISTORY: Altered mental status FINDINGS: The lungs are clear and there is no pneumothorax, pleural effusion, or focal pneumonia. Arthropathy of the shoulders. No overt failure. Hypertrophic and degenerative change of the spine. IMPRESSION: 1. No acute process.
[2017-11-14 16:44] VITALS: BP 128/68; PULSE 75; TEMP 97.1
== END 2017-11-14 16:12 | disposition other institution (70) ==
LOC: EC 13:48
DX: R20.0 Anesthesia of skin (principal); I10 Essential (primary) hypertension; Z79.899 Other long term (current) drug therapy
CPT/HCPCS: 36415; 93005; 80053; 82550; 82553; 84484; 85025; 85610; 85730; 81001; 71046; 70450; 99285; 96374; 96361 ×2; J2405

== ENCOUNTER 2018-04-20 12:50 | Emergency (ER) | payer OTHER ==
[2018-04-20 13:06] VITALS: BP 128/62; PULSE 72; RESP 18; TEMP 97.3
[2018-04-20] MEDS ORDERED: IBUPROFEN 600 MG TAB PO STA (13:07)
--- NOTE | 2018-04-20 13:24 | ED ---
General Adult HPI - General Chief complaint: Extremity Problem,Nontraumatic Stated complaint: Shoulder Pain Time Seen by Provider: 04/20/18 13:01 Source: patient Mode of arrival: EMS Limitations: no limitations - History of Present Illness Initial comments: This a [age] female past medical history of hypertension and anxiety persisted for chief complaint of right shoulder pain. Patient states that yesterday morning she woke up around 1 PM with pain and limited range of motion in the right shoulder. Patient denies any numbness, tingling, loss sensation, changes in color, swelling, erythema or rashes of the joint. Patient that she's not sure how she got it, after she thought she slept on it wrong . When symptoms persisted through today, she decided to present to the [facility] department for evaluation. Patient no means in terms patient, so she called EMS. Patient denies any chest pain, neck or back pain, shortness of breath, dyspnea on exertion, dizziness, confusion, lightheaded feeling, nausea, vomiting, abdominal pain, diarrhea, constipation or any other associated symptoms. Patient states that the pain is reproduced with palpation. Remainder of ROS negative upon presentation patient's well signs stable. Patient stated that she given Tylenol 3 around 3 AM this morning for pain. She stated this helped minimally. - Related Data Home Medications Medication Instructions Recorded Confirmed Acetaminophen Tab [Tylenol Tab] 650 mg PO Q4H PRN 11/14/17 11/14/17 Ergocalciferol [Vitamin D2 50,000 unit PO FR 11/14/17 11/14/17 (DRISDOL)] Ferrous Sulfate [Feosol] 325 mg PO BID 11/14/17 11/14/17 Metoprolol Tartrate [Lopressor] 25 mg PO BID 11/14/17 11/14/17 Potassium Chloride ER [K-Dur 20] 20 meq PO DAILY@1700 11/14/17 11/14/17 amLODIPine [Norvasc] 10 mg PO DAILY 11/14/17 11/14/17 diphenhydrAMINE [Benadryl] 25 mg PO DAILY PRN 11/14/17 11/14/17 Previous Rx's Medication Instructions Recorded HYDROcodone/APAP 5-325MG [[place] 1 each PO Q4HR PRN #40 tab 10/09/17 5-325] Magnesium Oxide [Mag-Ox] 400 mg PO TID tab 10/09/17 Thiamine [Vitamin B-1] 100 mg PO BID@1200,1700 tab 10/09/17 Ibuprofen [Motrin] 600 mg PO Q8HR PRN 7 Days #21 tab 04/20/18 Allergies Allergy/AdvReac Type Severity Reaction Status Date / Time No Known Allergies Allergy Verified 11/14/17 14:37 Review of Systems ROS Statement: Those systems with pertinent positive or pertinent negative responses have been documented in the HPI. ROS Other: All systems not noted in ROS Statement are negative. Constitutional: Denies: fever, chills, night sweats ENT: Denies: ear pain, throat pain Respiratory: Denies: cough, dyspnea Cardiovascular: Denies: chest pain, palpitations Endocrine: Denies: fatigue Gastrointestinal: Denies: abdominal pain, nausea, vomiting, diarrhea, constipation Genitourinary: Denies: urgency, dysuria Musculoskeletal: Reports: arthralgia. Denies: back pain, joint swelling Skin: Denies: rash Neurological: Denies: headache, weakness, numbness, paresthesias, confusion, abnormal gait, vertigo Past Medical History Past Medical History: Hypertension History of Any Multi-Drug Resistant Organisms: MRSA Date of last positivie culture/infection: 01/03/18 MDRO Source:: ABDOMEN Past Surgical History: No Surgical Hx Reported Past Psychological History: Anxiety Smoking Status: Never smoker Past Alcohol Use History: None Reported Past Drug Use History: None Reported - Past Family History Father Family Medical History: Hypertension Additional Family Medical History / Comment(s): gout, etoh, General Exam - General Exam Comments Initial Comments: General: The patient is awake and alert, in no distress, and does not appear acutely ill. Eye: Pupils are equal, round and reactive to light, extra-ocular movements are intact. No nystagmus. There is normal conjunctiva bilaterally. No signs of icterus. Ears, nose, mouth and throat: There are moist mucous membranes and no oral lesions. Neck: The neck is supple, there is no tenderness or JVD. Full ROM at the c- spine with flexion, extension, rotation, lateral flexion. No midline tenderness to palpation. Cardiovascular: There is a regular rate and rhythm. No murmur, rub or gallop is appreciated. Respiratory: Lungs are clear to auscultation, respirations are non-labored, breath sounds are equal. No wheezes, stridor, rales, or rhonchi. Gastrointestinal: Soft, non-distended, non-tender abdomen without masses or organomegaly noted. There is no rebound or guarding present. No CVA tenderness. Bowel sounds are unremarkable. Musculoskeletal: No overlying erythema, swelling, rashes, obvious defects or deformities of the shoulders bilaterally. Pt is able to forward flex and extend at the right shoulder however she admits to pain in the anterior shoulder with these movements, no tenderness with ROM of the left. There is no tenderness to palpation over the scapula. Patient is tender to palpation over the right AC joint. Strength 5/5 of the UE equally b/l. Sensation intact of the UE equally b/l no badge parathesias. Pt is able to make the Ok-thumbs up- fingers crossed and wrist extension- no wrist drop. Radial, ulnar and median n intact b/l. Radial pulses equal bilaterally 2+. Capillary refill <2seconds. Neurological: A&O x 3. CN II-XII intact, There are no obvious motor or sensory deficits. Coordination appears grossly intact. Speech is normal. Skin: Skin is warm and dry and no rashes or lesions are noted. Psychiatric: Cooperative, appropriate mood & affect, normal judgment. Limitations: no limitations Course Vital Signs 04/20/18 13:00 Temperature 97.3 F L Pulse Rate 72 Respiratory 18 Rate Blood Pressure 128/62 O2 Sat by Pulse 99 Oximetry Medical Decision Making - Medical Decision Making 62yo obese pt with hx of OA presenting with cc of right shoulder pain atraumatic. Pt is able to passively range at the right shoulder, there is no out out proportion pain, pt afebrile no erythema or swelling, no concern for septic joint at this time. Pt appears well nontoxic. Pt denies hx of falls but stated that she woke up with the pain, she did mention she thought she slept on it wrong. XR were obtained given pt age and due to pain with ROM and palpation on exam. XR revealed hypertrophic changes at the AC joint where pain we reproducible. Pt denies any symptoms of ACS or abdominal pain concerning for any referred pain, pt VS stable. Pt was able to use arm to get into wheel chair to use the restroom and she appeared comfortable. Pt placed in sling, given ibuprofen for pain and given instruction to f/u with orthopedic associates in the next week and PCP in the next 1-2 days. Pt agreed with plan and was d/c in stable condition. Case discussed in detail with Dr. Clemons who agrees with impression & plan. Disposition Clinical Impression: Right shoulder pain, AC joint arthropathy Disposition: HOME SELF-CARE Condition: Good Instructions: Shoulder Pain (ED) Prescriptions: Ibuprofen [Motrin] 600 mg PO Q8HR PRN 7 Days #21 tab PRN Reason: Pain Is patient prescribed a controlled substance at d/c from ED?: No Referrals: Vicki Mcdonald MD [Primary Care Provider] - 1-2 days Time of Disposition: 14:10
--- NOTE | 2018-04-20 14:04 | XR ---
EXAMINATION TYPE: XR shoulder complete RT , 4 VIEWS DATE OF EXAM ORDERED: 04/20/2018 HISTORY: Pain. COMPARISON: None. FINDINGS: There are hypertrophic changes in the right AC joint. No fracture or dislocation is seen. IMPRESSION: 1. NO ACUTE OSSEOUS LESION. 2. MILD DEGENERATIVE CHANGE.
== END 2018-04-20 14:33 | disposition home or self-care (01) ==
LOC: EC 12:50
DX: M19.011 Primary osteoarthritis, right shoulder (principal); I10 Essential (primary) hypertension; Z86.14 Personal history of Methicillin resistant Staphylococcus aureus infection; Z79.899 Other long term (current) drug therapy
CPT/HCPCS: 99283

== ENCOUNTER → 2019-01-16 | Outpatient (CLI) | payer OTHER ==
[2019-01-16 17:00] LABS: Appearance,Urine Clear (Clear); Bilirubin,Urine Negative (Negative); Blood,Urine Negative (Negative); Color,Urine Light Yellow; Glucose,Urine (UA) Negative (Negative); HCT 39.6 % (34.0-46.0); HGB 12.9 gm/dL (11.4-16.0); Ketones,Urine Negative (Negative); Leukocyte Esterase,Urine Negative (Negative); MCH 29.2 pg (25.0-35.0); MCHC 32.6 g/dL (31.0-37.0); MCV 89.6 fL (80.0-100.0); Mean Platelet Volume 7.6; Nitrite,Urine Negative (Negative); PH, Urine 6.5 (5.0-8.0); Platelet Count 298 k/uL (150-450); Protein,Urine Negative (Negative); RBC 4.42 m/uL (3.80-5.40); RDW 13.6 % (11.5-15.5); Specific Gravity,Urine 1.016 (1.001-1.035); Urobilinogen,Urine <2.0 mg/dL (<2.0); WBC 10.2 k/uL (3.8-10.6)
[2019-01-16 17:05] LABS: INR 0.9 (<1.2); Partial Thromboplastin Time 25.3 sec (22.0-30.0); Prothrombin Time 9.4 sec (9.0-12.0)
[2019-01-16 17:10] LABS: ALT 12 U/L (9-52); AST 21 U/L (14-36); African American GFR (CKD) >90 (>60 ml/min/1.73 sqM); Albumin 4.4 g/dL (3.5-5.0); Alkaline Phosphatase 99 U/L (38-126); Anion Gap 10 mmol/L; Blood Urea Nitrogen 20 mg/dL (7-17); Carbon Dioxide 27 mmol/L (22-30); Chloride 101 mmol/L (98-107); Glucose 94 mg/dL (74-99); Potassium 4.2 mmol/L (3.5-5.1); Sodium 138 mmol/L (137-145); Total Bilirubin 0.6 mg/dL (0.2-1.3); Total Protein 7.6 g/dL (6.3-8.2)
== END | disposition home or self-care (01) ==
LOC: LABPAT 16:11
PROVIDERS: ATTEND Orthopaedic Surgery
DX: Z01.818 Encounter for other preprocedural examination (principal); Z01.812 Encounter for preprocedural laboratory examination; M16.11 Unilateral primary osteoarthritis, right hip
CPT/HCPCS: 80053; 81003; 85027; 85610; 85730; 87070; 93005

== ENCOUNTER → 2019-05-15 | Outpatient (CLI) | payer OTHER ==
[2019-05-15 14:50] LABS: HCT 41.1 % (34.0-46.0); MCH 29.4 pg (25.0-35.0); MCHC 31.5 g/dL (31.0-37.0); MCV 93.4 fL (80.0-100.0); Mean Platelet Volume 8.1; Platelet Count 290 k/uL (150-450); RDW 13.8 % (11.5-15.5); WBC 8.6 k/uL (3.8-10.6)
[2019-05-15 14:55] LABS: ALT 18 U/L (9-52); AST 20 U/L (14-36); African American GFR (CKD) >90 (>60 ml/min/1.73 sqM); Albumin 4.3 g/dL (3.5-5.0); Alkaline Phosphatase 99 U/L (38-126); Anion Gap 13 mmol/L; Blood Urea Nitrogen 16 mg/dL (7-17); Calcium 9.8 mg/dL (8.4-10.2); Carbon Dioxide 25 mmol/L (22-30); Chloride 102 mmol/L (98-107); Glucose 103 mg/dL (74-99); INR 0.9 (<1.2); Potassium 4.4 mmol/L (3.5-5.1); Prothrombin Time 9.6 sec (9.0-12.0); Sodium 140 mmol/L (137-145); Total Bilirubin 0.5 mg/dL (0.2-1.3); Total Protein 7.6 g/dL (6.3-8.2)
== END | disposition home or self-care (01) ==
LOC: LABPAT 13:42
PROVIDERS: ATTEND Orthopaedic Surgery
DX: Z01.812 Encounter for preprocedural laboratory examination (principal)
CPT/HCPCS: 36415; 80053; 85027; 85610; 85730; 86850; 86900; 86901; 87070

== ENCOUNTER → 2019-05-19 | Outpatient (CLI) | payer OTHER ==
[2019-05-19 14:19] LABS: Appearance,Urine Clear (Clear); Bilirubin,Urine Negative (Negative); Blood,Urine Negative (Negative); Color,Urine Light Yellow; Glucose,Urine (UA) Negative (Negative); Ketones,Urine Negative (Negative); Leukocyte Esterase,Urine Negative (Negative); Nitrite,Urine Negative (Negative); PH, Urine 6.5 (5.0-8.0); Protein,Urine Negative (Negative); Specific Gravity,Urine 1.012 (1.001-1.035); Urobilinogen,Urine <2.0 mg/dL (<2.0)
== END | disposition home or self-care (01) ==
LOC: LABPAT 12:05
PROVIDERS: ATTEND Orthopaedic Surgery
DX: Z01.812 Encounter for preprocedural laboratory examination (principal)
CPT/HCPCS: 81003

== ENCOUNTER 2019-05-27 11:25 | Inpatient (IN) | payer OTHER ==
[2019-05-22 15:22] VITALS: BMI 58.6
[~2019-05-27 11:25] MED LIST: ACETAMINOPHEN TAB 500 MG TAB PO ONE; DEXAMETHASONE SOD PHOSPHATE 10 MG/ML 1 ML VIAL IV ONE; HYDROmorphone 0.5 MG/0.5 ML SYRINGE IVP PRN; MELOXICAM 7.5 MG TAB PO ONE; MIDAZOLAM 2 MG/2 ML VIAL IV PRN; ONDANSETRON 4 MG/2 ML VIAL IVP ONE; ROPIVACAINE 246.25 MG, EPINEPHrine 0.5 MG, KETOROLAC 30 MG, cloNIDine HCL/PF 80 MCG, WA... MISCELLANE ONE; SCOPOLAMINE 1.5MG/72HR PATCH TRANSDERM ONE; TRANEXAMIC ACID 1,000 MG in SODIUM CHLORIDE 0.9% 100 ML IVPB ONE; VANCOMYCIN 2,000 MG in SODIUM CHLORIDE 0.9% 500 ML 500 ML IVPB ONE
[2019-05-27] MEDS: LACTATED RINGERS 1,000 ML IV SCH (12:40)
[2019-05-27] MEDS ORDERED: LIDOCAINE 1% 20 ML VIAL (10MG/ML) FOR IV START INTRADERMA ONE (12:40)
[2019-05-27] MEDS ORDERED: TRANEXAMIC ACID 1,000 MG/10 ML VIAL ONE (14:12)
[2019-05-27] MEDS ORDERED: fentaNYL (PF) 50 MCG/ML 2 ML AMP ONE (14:12)
[2019-05-27] MEDS ORDERED: SODIUM CHLORIDE 0.9% IRRIG 1,000 ML BTL IRRIGATION ONE (14:12)
[2019-05-27] MEDS ORDERED: PROPOFOL 10 MG/ML 20 ML VIAL IV ONE (14:12)
[2019-05-27] MEDS ORDERED: HEPARIN SODIUM,PORCINE 10,000 UNIT/ML 1 ML VIAL ONE (14:12)
[2019-05-27] MEDS ORDERED: KETAMINE 10 MG/ML 20 ML VIAL ONE (14:12)
[2019-05-27] MEDS ORDERED: MIDAZOLAM 2 MG/2 ML VIAL ONE (14:12)
[2019-05-27] MEDS ORDERED: SODIUM CHLORIDE 0.9% 100 ML BAG ONE (14:12)
[2019-05-27] MEDS ORDERED: GLYCOPYRROLATE 0.2 MG/ML 2 ML VIAL ONE (14:12)
[2019-05-27] MEDS ORDERED: CLINDAMYCIN 1,800 MG in SODIUM CHLORIDE 0.9% IRRIGATIO 3,000 ML IRRIGATION ONE (14:14)
--- NOTE | 2019-05-27 15:55 | P.OP ---
Date of Procedure: 05/27/19 Preoperative Diagnosis: Severe osteoarthritis right hip Postoperative Diagnosis: Severe osteoarthritis right hip Procedure(s) Performed: Right total hip arthroplasty with a direct anterior approach Implants: Rudolph and nephew Polarstem size 0 standard [employer]olph [employer] Nephew R3, 3 hole acetabular shell, 48 mm [employer]olph [employer]hew reflection 6.5 mm cancellus screw, 20 mm 2 [employer]olph [employer]hew R3, XLPE 20 acetabular liner [employer]olph [employer] Nephew Oxinium femoral head 32 m, +4 All components were press-fit. The articulation is Oxinium on polyethylene. Anesthesia: spinal Surgeon: Yg Ansari Brick Sorter #1: Gudelia Banks Estimated Blood Loss (ml): 150 (63 mL returned with Cell Saver) Pathology: other (Femoral head) Condition: stable Disposition: PACU Indications for Procedure: After failure of conservative treatment we discussed the surgical and nonsurgical treatment options at length. Patient wishes to proceed with a total hip arthroplasty with a direct anterior approach. Complications specific to this procedure were discussed at length, including but not limited to infection, leg length discrepancy, dislocation, and nerve injury. Patient is aware of all these complications and informed consent was obtained Operative Findings: The operative findings are consistent with severe osteoarthritis of the right hip Description of Procedure: Patient was seen and evaluated in the preoperative area, consent was reviewed, and the surgical site was marked with a skin marker. Patient was then brought to the operating room and given prophylactic antibiotics intravenously. 1 g of Tranexamic acid was also given. A spinal anesthetic was administered by the anesthesia department. The patient was then placed on the [place] table with the bony prominences well-padded. The hip area was then prepped and draped in usual sterile fashion. A universal timeout was then performed, which confirmed the patient's name, surgical site, ALLERGIES, and procedure being performed. Next the incision site was located at 1 cm distal and 1 cm lateral to the anterior superior iliac spine. The skin and subcutaneous tissues were sharply incised. Incision was carefully dissected down to the fascia overlying the tensor fascia reggie muscle. This fascia was then incised in line with the incision. Next, using blunt finger dissection, the tensor fascia reggie muscle was dissected off its investing fascia. The muscle was then carefully retracted laterally with a cobra retractor over the lateral neck of the femur. Next, the circumflex vessels were identified and cauterized using the AquaMantis device. The anterior hip capsule was then exposed. The capsule was then opened and an inverted T fashion. Cobra retractors were then placed intracapsularly. The proximal femur was then visualized. The femoral neck was then osteotomized appropriate level above the lesser trochanter. Small amount of traction was placed with the [place] table. A small wedge of bone was then removed from the remaining femoral head. Next, using a corkscrew femoral head was easily removed from the acetabulum. On gross visual inspection, the femoral head had complete loss of articular cartilage in mu ltiple periarticular osteophytes. Attention was then turned to the acetabulum. the acetabulum was exposed and any remaining labrum was excised. Sequential reaming of the acetabulum was performed using fluoroscopic guidance. When the appropriate size was reached, a trial was then placed. The position and fit of the trial was checked with fluoroscopy. The trial was then removed. Then, using fluoroscopic guidance, the final implant was impacted at 20 of anteversion and 40 of abduction, and fully seated in the acetabulum. 2 screws were then placed in the acetabulum. Again fluoroscopy was used to check position of the screws. Next, the liner was then impacted, with a 20 elevated liner located in the anterior superior quadrant. Component locking was confirmed. Attention was then directed to the femur. With the aid of the [place] table, the femur was externally rotated to approximately 130, extended, and abducted under the opposite leg. A side hook was then placed under the proximal femur, and the side hook elevator was used to elevate the proximal femur. Retractors were then placed. A capsular release was performed, as well as a release of the conjoined tendon, which afforded excellent visualization of the proximal femur. Next, a box osteotome was used to lateralize the proximal femur. A deckhand shrimp boat was then used to locate the femoral canal. Sequential broaching was then performed with appropriate size which afforded excellent fixation in the proximal femur. A trial was then placed with appropriate head and neck, and the hip was gently reduced with the aid of the [place] table. Fluoroscopy was then used to check position of the components, as well as to ensure equal leg lengths. The hip was then gently dislocated and the trials were then removed. Final implants were then impacted and the hip was again reduced. Final fluoroscopic x-rays confirmed that the components were in anatomic position, as well as equal leg lengths. The hip was also taken through range of motion, and found to be stable. The hip was then copiously irrigated with antibiotic solution with pulsatile lavage. The hip was then irrigated with Irrisept solution. The soft tissues were then injected with a ropivacaine solution, which consisted of 246.25 mg of ropivacaine, 0.5 mg of epinephrine, 30 mg of Toradol, 80 g of clonidine, and 48.45 mL of sterile water, for a total of 100 mL of fluid injected. A second dose of 1 g of Tranexamic acid was also given. the fascia was then closed with 2-0 strata fix suture. The subcutaneous tissue was closed with 3-0 Vicryl. The subcuticular tissue was closed with 3-0 strata fix suture. The skin was then closed with Dermabond glue and a sterile silver dressing. The patient was then transferred to the recovery room in stable co ndition. The foundation assistant FARAZ Wagner was required due to the complexity of surgery, and the need for skilled surgical device sales representative for positioning, draping, exposure, retraction, and closure of the wound.
[2019-05-27] MEDS ORDERED: NALOXONE 0.4 MG/ML 1 ML VIAL IV PRN (16:00)
[2019-05-27] MEDS ORDERED: HYDROmorphone 0.5 MG/0.5 ML SYRINGE IVP PRN ×2 (16:00)
[2019-05-27] MEDS ORDERED: hydrOXYzine PAMOATE 25 MG CAP PO PRN (16:00)
[2019-05-27] MEDS ORDERED: MAGNESIUM HYDROXIDE 2,400 MG/10 ML CUP PO PRN (16:00)
[2019-05-27] MEDS ORDERED: ONDANSETRON 4 MG/2 ML VIAL IVP PRN (16:00)
[2019-05-27] MEDS ORDERED: HYDROcodone/APAP 5-325MG 1 EACH TAB PO PRN (16:00)
[2019-05-27] MEDS ORDERED: DIAZEPAM 5 MG TAB PO PRN (16:00)
[2019-05-27] MEDS ORDERED: HYDROmorphone 1 MG/ML 1 ML SYRINGE IVP PRN (16:00)
--- NOTE | 2019-05-27 16:08 | XR ---
EXAMINATION TYPE: XR Hip Limited RT DATE OF EXAM: 05/27/2019 COMPARISON: NONE HISTORY: Postop TECHNIQUE: One view submitted. FINDINGS: There is postsurgical change in near anatomic alignment. There is soft tissue edema and emphysema. IMPRESSION: 1. Postoperative change. Appears in near-anatomic alignment.
--- NOTE | 2019-05-27 17:03 | XR ---
Limited right hip HISTORY: Postop Single frontal view of the right hip Patient is status post right hip arthroplasty. There is anatomic alignment. Lucency present in the so ft tissues compatible with postop state. Small ossific density present distal to the lateral acetabul um may BE postoperative. IMPRESSION: Orthopedic follow-up as described.
--- NOTE | 2019-05-27 17:11 | FL ---
Fluoroscopy HISTORY: Anterior hip replacement 21 seconds fluoroscopy time supplied to the referring clinician. 2 intraoperative C-arm images docum ent the procedure. See dictated report from orthopedic surgery.
[2019-05-27] MEDS: ASPIRIN 325 MG TAB PO SCH (21:57)
[2019-05-27] MEDS: METOPROLOL SUCCINATE (ER) 50 MG TAB.ER.24H PO SCH (21:58)
[2019-05-27] MEDS: SENNOSIDES-DOCUSATE SODIUM 1 EACH TAB PO SCH (21:58)
[2019-05-27] MEDS: SODIUM CHLORIDE 0.9% 1,000 ML IV SCH (22:38)
[2019-05-28] MEDS ORDERED: VANCOMYCIN 2,000 MG in SODIUM CHLORIDE 0.9% 500 ML 500 ML IVPB ONE (00:30)
[2019-05-28] MEDS ORDERED: MELATONIN 3 MG TABLET ONE (03:40)
[2019-05-28 07:53] LABS: Hepatitis B Surface Antigen Non-Reactive (Non-Reactive); Hepatitis C IgG Antibody Non-Reactive (Non-Reactive)
[2019-05-28] MEDS: MELATONIN 3 MG TABLET PO SCH ×2 (07:59→23:25)
[2019-05-28] MEDS: LACTATED RINGERS 1,000 ML IV SCH (08:00)
[2019-05-28] MEDS: SODIUM CHLORIDE 0.9% 1,000 ML IV SCH ×2 (08:00→20:03)
[2019-05-28] MEDS: amLODIPine 10 MG TAB PO SCH (08:16)
[2019-05-28] MEDS: THIAMINE 100 MG TAB PO SCH (08:16)
[2019-05-28] MEDS: MELOXICAM 7.5 MG TAB PO SCH (08:16)
[2019-05-28] MEDS: METOPROLOL SUCCINATE (ER) 50 MG TAB.ER.24H PO SCH ×2 (08:16→20:10)
[2019-05-28] MEDS: ASPIRIN 325 MG TAB PO SCH ×2 (08:16→20:10)
[2019-05-28] MEDS: HYDROcodone/APAP 5-325MG 1 EACH TAB PO PRN ×2 (08:18→23:25)
[2019-05-28 08:28] LABS: Basophils # (A) 0.1 k/uL (0-0.2); Basophils % (A) 1 %; Eosinophils % (A) 0 %; HCT 31.8 % (34.0-46.0); HGB 10.4 gm/dL (11.4-16.0); Lymphocytes # (A) 0.6 k/uL (1.0-4.8); Lymphocytes % (A) 4 %; MCH 30.2 pg (25.0-35.0); MCHC 32.7 g/dL (31.0-37.0); MCV 92.4 fL (80.0-100.0); Mean Platelet Volume 8.3; Monocytes # (A) 0.6 k/uL (0-1.0); Monocytes % (A) 5 %; Neutrophils # (A) 11.9 k/uL (1.3-7.7); Neutrophils % (A) 90 %; Platelet Count 263 k/uL (150-450); RBC 3.44 m/uL (3.80-5.40); RDW 13.3 % (11.5-15.5); WBC 13.2 k/uL (3.8-10.6)
--- NOTE | 2019-05-28 09:01 | P.PN ---
Subjective Progress Note Date: 05/28/19 This is a 64-year-old female who is status post right total hip arthroplasty. This is postoperative day #1 and patient is seen and evaluated at bedside with Dr. Yg Ansari. Patient states that her pain is well-controlled and she has been up and walking with physical therapy. Patient denies any fever/chills, numbness, weakness, tingling, abdominal pain, shortness of breath or chest pain. Objective - Vital Signs Vital signs: Vital Signs Temp 98.4 F 05/28/19 07:00 Pulse 101 H 05/28/19 07:00 Resp 16 05/28/19 07:00 BP 125/70 05/28/19 08:14 Pulse Ox 92 L 05/28/19 07:00 Intake & Output 05/27/19 05/28/19 05/28/19 18:59 06:59 18:59 Intake Total 1201 140 Output Total 150 700 Balance 1051 -560 Weight 136.078 kg Intake: IV 1201 Intake, IV Titration 140 Amount Sodium Chloride 0.9% 1, 140 000 ml @ 70 mls/hr IV . [id number] [facility] Rx#:[id number] Output: Urine 700 Estimated Blood Loss 150 Other: Voiding Method Toilet - Exam Vital signs are stable. Patient is in no acute distress and is alert and oriented 3. Calf is soft and nontender to palpation. Dressing is clean, dry, and intact. Patient has full foot and ankle motion without pain or difficulty. Neurovascular status and circulatory status are intact. - Labs CBC & Chem 7: 05/28/19 06:58 Labs: Abnormal Lab Results - Last 24 Hours (Table) 05/27/19 05/28/19 Range/Units 17:36 06:58 WBC 13.2 H (3.8-10.6) k/uL RBC 3.44 L (3.80-5.40) m/uL Hgb 10.4 L (11.4-16.0) gm/dL Hct 31.8 L (34.0-46.0) % Neutrophils # 11.9 H (1.3-7.7) k/uL Lymphocytes # 0.6 L (1.0-4.8) k/uL Hep B Core Total Ab Reactive H (Non-Reactive) Assessment and Plan (1) Osteoarthritis of right hip Current Visit: Yes Status: Acute Code(s): M16.11 - UNILATERAL PRIMARY OSTEOARTHRITIS, RIGHT HIP SNOMED Code(s): 203381344660334 (2) S/P total hip arthroplasty Current Visit: Yes Status: Acute Code(s): Z96.649 - PRESENCE OF UNSPECIFIED ARTIFICIAL HIP JOINT SNOMED Code(s): 059653223895 Plan: Weightbearing as tolerated with walker. Leave dressing intact. Plan to remove dressing before discharge and then change dressing twice daily afterwards. May shower with Optifoam dressing on. Recommend use of compression stockings daily for at least 2 weeks during the day to help prevent swelling and blood clots. May remove at night before sleeping. Please follow-up with [facility] in 2 weeks and call with any questions or concerns, .
[2019-05-28 10:38] LABS: ALT 23 U/L (9-52); AST 29 U/L (14-36); African American GFR (CKD) >90 (>60 ml/min/1.73 sqM); Albumin 3.2 g/dL (3.5-5.0); Alkaline Phosphatase 68 U/L (38-126); Anion Gap 10 mmol/L; Blood Urea Nitrogen 19 mg/dL (7-17); Calcium 8.7 mg/dL (8.4-10.2); Carbon Dioxide 22 mmol/L (22-30); Chloride 104 mmol/L (98-107); Glucose 121 mg/dL (74-99); Non-African American GFR(CKD) >90 (>60 ml/min/1.73 sqM); Potassium 4.3 mmol/L (3.5-5.1); Sodium 136 mmol/L (137-145); Total Bilirubin 0.7 mg/dL (0.2-1.3); Total Protein 5.9 g/dL (6.3-8.2)
--- NOTE | 2019-05-28 10:48 | P.CONS ---
History of Present Illness - Reason for Consult Consult date: 05/28/19 medical management - History of Present Illness Patient is a 64-year-old female who seen status post total right hip arthro plasty with anterior approach with Dr. Yg Ansari. Patient is alert and oriented resting comfortably bed. Patient is postop day 1. Patient has a past medical history of hypertension, anxiety, and osteoarthritis of the right hip. Patient states pain is well tolerated. Patient denies nausea vomiting, denies fever chills, denies chest pain, denies urinary frequency or burning. Patient states that she has good appetite. Patient plans to be discharged to rehab facility, as patient lives alone. Review of Systems Please refer to HPI otherwise unremarkable Past Medical History Past Medical History: Hypertension, Osteoarthritis (OA) Additional Past Medical History / Comment(s): fx. right ankle & was in [facility] rehab last year for approx. 1 month, hx. heart murmur-no tx. for per pt. History of Any Multi-Drug Resistant Organisms: MRSA Year Discovered:: 01/03/18 MDRO Source:: ABD- Past Surgical History: Orthopedic Surgery Additional Past Surgical History / Comment(s): ORIF RT ANKLE X 3 Past Anesthesia/Blood Transfusion Reactions: No Reported Reaction Smoking Status: Never smoker - Past Family History Father Family Medical History: Hypertension Additional Family Medical History / Comment(s): gout, etoh, Medications and Allergies Home Medications Medication Instructions Recorded Confirmed Type Ergocalciferol [Vitamin D2 50,000 unit PO Q30D 11/14/17 05/27/19 History (BO)] amLODIPine [Norvasc] 10 mg PO DAILY 11/14/17 05/27/19 History Melatonin 3 mg PO HS 01/13/19 05/27/19 History Metoprolol Succinate [Toprol XL] 50 mg PO BID 01/13/19 05/27/19 History Thiamine [Vitamin B-1] 100 mg PO DAILY 01/13/19 05/27/19 History Ibuprofen [Motrin Ib] 600 mg PO BID 01/16/19 05/27/19 History Allergies Allergy/AdvReac Type Severity Reaction Status Date / Time cephalexin [From Keflex] Allergy Itching Verified 05/27/19 12:14 Physical Exam Vitals: Vital Signs Temp Pulse Pulse Pulse Resp BP BP 05/28/19 08:14 125/70 05/28/19 07:00 98.4 F 101 H 16 100/64 05/27/19 20:55 76 121/67 05/27/19 20:40 76 127/57 05/27/19 20:25 87 134/55 05/27/19 20:10 67 122/69 05/27/19 19:55 65 108/68 05/27/19 19:40 69 112/67 05/27/19 19:25 66 111/64 05/27/19 19:10 66 120/69 05/27/19 18:55 70 117/66 05/27/19 18:40 74 118/71 05/27/19 18:30 73 16 111/70 05/27/19 18:25 97.5 F L 70 111/70 05/27/19 17:58 68 16 117/63 05/27/19 17:43 73 16 151/83 05/27/19 17:28 66 16 147/80 05/27/19 17:13 66 16 147/80 05/27/19 16:58 70 16 142/79 05/27/19 16:43 77 16 128/63 05/27/19 16:28 97.9 F 79 14 131/71 05/27/19 12:16 98.3 F 83 18 151/79 Pulse Ox 05/28/19 08:14 05/28/19 07:00 92 L 05/27/19 20:55 97 05/27/19 20:40 96 05/27/19 20:25 96 05/27/19 20:10 95 05/27/19 19:55 90 L 05/27/19 19:40 91 L 05/27/19 19:25 90 L 05/27/19 19:10 93 L 05/27/19 18:55 97 05/27/19 18:40 96 05/27/19 18:30 95 05/27/19 18:25 96 05/27/19 17:58 94 L 05/27/19 17:43 97 05/27/19 17:28 100 05/27/19 17:13 100 05/27/19 16:58 100 05/27/19 16:43 99 05/27/19 16:28 97 05/27/19 12:16 95 Intake and Output 05/27/19 05/28/19 05/28/19 22:59 06:59 14:59 Intake Total 790 Output Total 350 500 Balance 440 -500 Intake: IV 650 Intake, IV Titration 140 Amount Sodium Chloride 0.9% 1, 140 000 ml @ 70 mls/hr IV . [id number] [facility] Rx#:[id number] Output: Urine 200 500 Estimated Blood Loss 150 Other: Voiding Method Toilet Head normocephalic Neck supple Lungs clear to auscultation bilaterally no wheezing or crackles Heart regular rate and rhythm S1-S2, no rub or gallop Abdomen is soft nontender nondistended positive bowel sounds no hepatosplenomegaly Extremities no edema. Right anterior hip dressing clean dry and intact. Neuro alert and orientated to 3 Results CBC & Chem 7: 05/28/19 06:58 Labs: Abnormal Lab Results - Last 24 Hours (Table) 05/27/19 05/28/19 Range/Units 17:36 06:58 WBC 13.2 H (3.8-10.6) k/uL RBC 3.44 L (3.80-5.40) m/uL Hgb 10.4 L (11.4-16.0) gm/dL Hct 31.8 L (34.0-46.0) % Neutrophils # 11.9 H (1.3-7.7) k/uL Lymphocytes # 0.6 L (1.0-4.8) k/uL Hep B Core Total Ab Reactive H (Non-Reactive) Assessment and Plan Assessment: 1. Osteoarthritis of right hip. Postop day 1 status post right hip arthroplasty with anterior approach. 2. History of Hypertension. Home medications resumed. 3. History of anxiety. Home medications resumed. 4. leukocytosis. Urinary analysis has been ordered DVT prophylaxis aspirin per orthopedic services. GI prophylaxis Pepcid. possible ECF upon discharge Thank you for this consultation. We will continue to follow patient closely throughout stay Time with Patient: Greater than 30 (Greater than 60% of the total time spent in counseling and coordination of care. I performed an examination of the patient and discussed their management with the Nurse Practitioner. I have reviewed the Nurse Practitioner's notes and agree with the documented findings and plan of care)
[2019-05-28 20:11] LABS: Appearance,Urine Clear (Clear); Bilirubin,Urine Negative (Negative); Blood,Urine Negative (Negative); Color,Urine Yellow; Glucose,Urine (UA) Negative (Negative); Ketones,Urine Negative (Negative); Leukocyte Esterase,Urine Negative (Negative); Nitrite,Urine Negative (Negative); Protein,Urine Trace (Negative); Specific Gravity,Urine 1.024 (1.001-1.035); Urobilinogen,Urine <2.0 mg/dL (<2.0)
[2019-05-28] MEDS: SENNOSIDES-DOCUSATE SODIUM 1 EACH TAB PO SCH (20:11)
[2019-05-29 01:37] VITALS: PULSE 68
[2019-05-29] MEDS: HYDROcodone/APAP 5-325MG 1 EACH TAB PO PRN (05:50)
[2019-05-29] MEDS: amLODIPine 10 MG TAB PO SCH (07:11)
[2019-05-29] MEDS: LACTATED RINGERS 1,000 ML IV SCH (07:12)
[2019-05-29] MEDS: METOPROLOL SUCCINATE (ER) 50 MG TAB.ER.24H PO SCH (07:13)
[2019-05-29 07:30] VITALS: BP 96/57; RESP 16; TEMP 98.2
[2019-05-29] MEDS: MELOXICAM 7.5 MG TAB PO SCH (07:59)
[2019-05-29] MEDS: THIAMINE 100 MG TAB PO SCH (07:59)
[2019-05-29] MEDS: ASPIRIN 325 MG TAB PO SCH (07:59)
[2019-05-29 08:16] LABS: Basophils % (A) 0 %; Eosinophils # (A) 0.2 k/uL (0-0.7); Eosinophils % (A) 2 %; HCT 29.4 % (34.0-46.0); HGB 9.7 gm/dL (11.4-16.0); Lymphocytes # (A) 1.4 k/uL (1.0-4.8); Lymphocytes % (A) 14 %; MCH 30.8 pg (25.0-35.0); MCHC 32.9 g/dL (31.0-37.0); MCV 93.4 fL (80.0-100.0); Mean Platelet Volume 8.2; Monocytes # (A) 0.6 k/uL (0-1.0); Monocytes % (A) 7 %; Neutrophils # (A) 7.2 k/uL (1.3-7.7); Neutrophils % (A) 75 %; Platelet Count 245 k/uL (150-450); RBC 3.15 m/uL (3.80-5.40); RDW 13.6 % (11.5-15.5); WBC 9.5 k/uL (3.8-10.6)
[2019-05-29 08:35] LABS: ALT 25 U/L (9-52); AST 27 U/L (14-36); African American GFR (CKD) >90 (>60 ml/min/1.73 sqM); Albumin 3.2 g/dL (3.5-5.0); Alkaline Phosphatase 65 U/L (38-126); Anion Gap 6 mmol/L; Blood Urea Nitrogen 23 mg/dL (7-17); Calcium 8.6 mg/dL (8.4-10.2); Carbon Dioxide 26 mmol/L (22-30); Chloride 106 mmol/L (98-107); Glucose 98 mg/dL (74-99); Non-African American GFR(CKD) >90 (>60 ml/min/1.73 sqM); Sodium 138 mmol/L (137-145); Total Bilirubin 0.5 mg/dL (0.2-1.3); Total Protein 5.9 g/dL (6.3-8.2)
--- NOTE | 2019-05-29 08:40 | P.PN ---
Subjective Progress Note Date: 05/29/19 This is a 64-year-old female who is status post right total hip arthroplasty. This is postoperative day #2 and patient is seen and evaluated at bedside. Patient admits to some soreness in the right hip, but states that she has been up and walking with physical therapy. Patient denies any fever/chills, numbness, weakness, tingling, abdominal pain, shortness of breath or chest pain. Objective - Vital Signs Vital signs: Vital Signs Temp 98.2 F 05/29/19 07:00 Pulse 68 05/29/19 07:00 Resp 16 05/29/19 07:00 BP 96/57 05/29/19 07:00 Pulse Ox 93 L 05/29/19 07:00 Intake & Output 05/28/19 05/29/19 05/29/19 18:59 06:59 18:59 Output Total 350 Balance -350 Output: Urine 350 Other: Voiding Method Toilet # Voids 1 1 - Exam Vital signs are stable. Patient is in no acute distress and is alert and oriented 3. Calf is soft and nontender to palpation. Dressing is clean, dry, and intact. Patient has full foot and ankle motion without pain or difficulty. Neurovascular status and circulatory status are intact. - Labs CBC & Chem 7: 05/29/19 07:28 05/29/19 07:28 Labs: Abnormal Lab Results - Last 24 Hours (Table) 05/28/19 05/28/19 05/29/19 Range/Units 06:58 19:45 07:28 RBC 3.15 L (3.80-5.40) m/uL Hgb 9.7 L (11.4-16.0) gm/dL Hct 29.4 L (34.0-46.0) % Sodium 136 L (137-145) mmol/L BUN 19 H (7-17) mg/dL Glucose 121 H (74-99) mg/dL Total Protein 5.9 L (6.3-8.2) g/dL Albumin 3.2 L (3.5-5.0) g/dL Urine Protein Trace H (Negative) 05/29/19 Range/Units 07:28 RBC (3.80-5.40) m/uL Hgb (11.4-16.0) gm/dL Hct (34.0-46.0) % Sodium (137-145) mmol/L BUN 23 H (7-17) mg/dL Glucose (74-99) mg/dL Total Protein 5.9 L (6.3-8.2) g/dL Albumin 3.2 L (3.5-5.0) g/dL Urine Protein (Negative) Assessment and Plan (1) Osteoarthritis of right hip Current Visit: Yes Status: Acute Code(s): M16.11 - UNILATERAL PRIMARY OSTEOARTHRITIS, RIGHT HIP SNOMED Code(s): 959510426048868 (2) S/P total hip arthroplasty Current Visit: Yes Status: Acute Code(s): Z96.649 - PRESENCE OF UNSPECIFIED ARTIFICIAL HIP JOINT SNOMED Code(s): 889715417384 Plan: Continue routine postop care and pain control. Continue anticoagulation with aspirin. Weightbearing as tolerated with a walker. Plan to remove Optifoam dressing before discharge with twice daily dressing changes afterwards. Appreciate input from medicine. Likely discharge to [facility] tomorrow.
[2019-05-29] MEDS ORDERED: FAMOTIDINE 20 MG TAB PO SCH (09:00)
--- NOTE | 2019-05-29 10:53 | P.PN ---
Subjective Progress Note Date: 05/29/19 Patient is a 64-year-old female who seen status post total right hip arthroplasty with anterior approach with Dr. Yg Ansari. Patient is alert and oriented resting comfortably bed. Patient is postop day 1. Patient has a past medical history of hypertension, anxiety, and osteoarthritis of the right hip. Patient states pain is well tolerated. Patient denies nausea vomiting, denies fever chills, denies chest pain, denies urinary frequency or burning. Patient states that she has good appetite. Patient plans to be discharged to rehab facility, as patient lives alone. On 05/29/2019 patient is alert and oriented 3. Patient having increased pain to right hip. Patient has been up ambulating anticipate discharge tomorrow to rehab facility. Patient's hemoglobin low at 9.7. Iron studies will be ordered patient will be started on ferrous sulfate. White blood cell count has normalized. UA negative for infection. Patient has remained afebrile. Patient denies chest pain or shortness breath. Patient denies nausea, vomiting or diarrhea. Patient denies any urinary burning or frequency Objective - Vital Signs Vital signs: Vital Signs Temp 98.2 F 05/29/19 07:00 Pulse 68 05/29/19 07:00 Resp 16 05/29/19 07:00 BP 96/57 05/29/19 07:00 Pulse Ox 93 L 05/29/19 07:00 Intake & Output 05/28/19 05/29/19 05/29/19 18:59 06:59 18:59 Output Total 350 Balance -350 Output: Urine 350 Other: Voiding Method Toilet Toilet # Voids 1 1 - Exam Head normocephalic Neck supple Lungs clear to auscultation bilaterally no wheezing or crackles Heart regular rate and rhythm S1-S2, no rub or gallop Abdomen is soft nontender nondistended positive bowel sounds no hepatosplenomegaly Extremities no edema. Right hip dressing clean dry and intact Neuro alert and orientated to 3 - Labs CBC & Chem 7: 05/29/19 07:28 05/29/19 07:28 Labs: Abnormal Lab Results - Last 24 Hours (Table) 05/28/19 05/28/19 05/29/19 Range/Units 06:58 19:45 07:28 RBC 3.15 L (3.80-5.40) m/uL Hgb 9.7 L (11.4-16.0) gm/dL Hct 29.4 L (34.0-46.0) % Sodium 136 L (137-145) mmol/L BUN 19 H (7-17) mg/dL Glucose 121 H (74-99) mg/dL Total Protein 5.9 L (6.3-8.2) g/dL Albumin 3.2 L (3.5-5.0) g/dL Urine Protein Trace H (Negative) 05/29/19 Range/Units 07:28 RBC (3.80-5.40) m/uL Hgb (11.4-16.0) gm/dL Hct (34.0-46.0) % Sodium (137-145) mmol/L BUN 23 H (7-17) mg/dL Glucose (74-99) mg/dL Total Protein 5.9 L (6.3-8.2) g/dL Albumin 3.2 L (3.5-5.0) g/dL Urine Protein (Negative) Assessment and Plan Assessment: 1. Osteoarthritis of right hip. Postop day 1 status post right hip arthroplasty with anterior approach. 2. History of Hypertension. Home medications resumed. 3. History of anxiety. Home medications resumed. 4. leukocytosis. Urinary analysis is negative. Leukocytosis resolved 5. Anemia likely acute blood loss anemia secondary surgery. Iron studies ordered patient started on ferrous sulfate DVT prophylaxis aspirin per orthopedic services. GI prophylaxis Pepcid. possible ECF upon discharge to [facility] Thank you for this consultation. We will continue to follow patient closely throughout stay
[2019-05-29] MEDS: SODIUM CHLORIDE 0.9% 1,000 ML IV SCH (11:12)
--- NOTE | 2019-05-29 11:25 | P.DS ---
Providers Date of admission: 05/27/19 11:25 Expected date of discharge: 05/29/19 Attending physician: Yg Ansari Consults: 05/27/19 16:00 Consult Physician Routine Consulting Provider: Vicki Mcdonald Consult Reason/Comments: medical management Do you want consulting provider notified?: Yes 05/27/19 20:06 Consult Physician Routine Consulting Provider: Annita Delong Consult Reason/Comments: medical management Do you want consulting provider notified?: Already Contacted Primary care physician: Stated None - Discharge Diagnosis(es) (1) Osteoarthritis of right hip Current Visit: Yes Status: Acute (2) S/P total hip arthroplasty Current Visit: Yes Status: Acute Hospital Course: This is a 64-year-old female with known history of degenerative arthritis of the right hip. The patient presents for evaluation. After discussion and consideration patient elects to proceed with total hip arthroplasty. The patient is seen preoperatively by Dr. Ansari and cleared for surgery. Patient is admitted to [facility] on 05/27/2019 for total hip arthroplasty. The procedures performed without complication or sequelae. The patient is doing well postoperatively. Labs and vital signs are stable on day of discharge. On day of discharge patient's hip incision is healing well. There is minimal erythema. There is no drainage noted at this time. There is minimal soft tissue swelling to the hip and thigh. Patient has full foot and ankle motion without difficulty or pain. Neurovascular status to the right lower extremity is intact. Patient is discharged home in good condition. Please see med rec for accurate list of home medications. Plan - Discharge Summary Discharge Rx Participant: Yes New Discharge Prescriptions: New Aspirin 325 mg PO BID #60 tab HYDROcodone/APAP 5-325MG [[place] 5-325] 1 - 2 tab PO Q6HR PRN #56 tab PRN Reason: Pain Sennosides [Senokot] 1 tab PO BID #60 tablet No Action amLODIPine [Norvasc] 10 mg PO DAILY Ergocalciferol [Vitamin D2 (DRISDOL)] 50,000 unit PO Q30D Thiamine [Vitamin B-1] 100 mg PO DAILY Metoprolol Succinate [Toprol XL] 50 mg PO BID Melatonin 3 mg PO HS Ibuprofen [Motrin Ib] 600 mg PO BID Discharge Medication List Ergocalciferol [Vitamin D2 (DRISDOL)] 50,000 unit PO Q30D 11/14/17 [History] amLODIPine [Norvasc] 10 mg PO DAILY 11/14/17 [History] Melatonin 3 mg PO HS 01/13/19 [History] Metoprolol Succinate [Toprol XL] 50 mg PO BID 01/13/19 [History] Thiamine [Vitamin B-1] 100 mg PO DAILY 01/13/19 [History] Ibuprofen [Motrin Ib] 600 mg PO BID 01/16/19 [History] Aspirin 325 mg PO BID #60 tab 05/29/19 [Rx] HYDROcodone/APAP 5-325MG [[place] 5-325] 1 - 2 tab PO Q6HR PRN #56 tab 05/29/19 [Rx] Sennosides [Senokot] 1 tab PO BID #60 tablet 05/29/19 [Rx] Follow up Appointment(s)/Referral(s): Diana Jolly, [NON-STAFF] - As Needed Yg Ansari DO [Doctor of Osteopathic Medicine] - 06/11/19 1:30 pm Activity/Diet/Wound Care/Special Instructions: Weightbearing as tolerated with walker. Leave dressing intact. Dressing may be removed by home care nurse in 10 days. May shower with dressing on. Follow-up with [facility] in 2 weeks, please call with any questions or concerns [phone] Discharge Disposition: TRANSFER TO SNF/ECF
[2019-05-29] MEDS ORDERED: FERROUS SULFATE 325 MG TAB PO SCH (21:00)
[2019-06-17] MEDS ORDERED: ERGOCALCIFEROL 50,000 UNIT CAP PO SCH (09:00)
== END 2019-05-29 13:37 | DRG 470 ==
LOC: 2ORMAIN 11:25 → 4SSUR 18:07
PROVIDERS: ADMIT Orthopaedic Surgery; ATTEND Orthopaedic Surgery
PROC: 0SR906A Replacement of Right Hip Joint with Oxidized Zirconium on Polyethylene Synthetic Substitute, Uncemented, Open Approach (ICD-10-PCS; principal; 2019-05-27 13:40)
DX: M16.11 Unilateral primary osteoarthritis, right hip (principal); D62 Acute posthemorrhagic anemia; Z68.43 Body mass index [BMI] 50.0-59.9, adult; I10 Essential (primary) hypertension; F41.9 Anxiety disorder, unspecified; R63.5 Abnormal weight gain; D72.829 Elevated white blood cell count, unspecified; Z79.899 Other long term (current) drug therapy; Z82.49 Family history of ischemic heart disease and other diseases of the circulatory system; Z86.14 Personal history of Methicillin resistant Staphylococcus aureus infection; Z98.890 Other specified postprocedural states; Z88.1 Allergy status to other antibiotic agents
CPT/HCPCS: 73501; 80053; 81003; 85025; 86701; 86704; 86803; 86850; 86891; 86900; 86901; 87340; 88300